=== PATIENT | male | born 1955 | race Caucasian/White ===

== ENCOUNTER 2022-01-09 03:55 | Outpatient (CLI) | payer MEDICARE, SELFPAY ==
[2022-01-09 09:22] LABS: HCT 45.8 % (40.0-50.0); HGB 15.3 g/dL (13.5-17.5); MCHC 33.4 % (32.0-36.0); MCV 90 fL (80-95); MPV 9.1 fL (8.0-11.0); Platelet Count 296 10^3/uL (130-400); RDW 11.9 % (11.8-14.1); RDW-SD 39.2 fL; WBC 4.53 10^3/uL (4.4-10.8)
[2022-01-09 10:12] LABS: ALT 32 U/L (16-63); AST 22 U/L (15-37); Alkaline Phosphatase 93 U/L (46-116); Anion Gap 7.7 mmol/L (3-11); BUN 13 mg/dL (7-18); Bilirubin, Total 0.7 mg/dL (0.2-1.0); CO2 29.3 mmol/L (21.0-32.0); Calcium 9.7 mg/dL (8.5-10.1); Calculated LDL 175 mg/dL (<100); Chloride 99 mmol/L (98-107); Cholesterol 255 mg/dL (<200); Estimated GFR 81.98 (mL/min/1.73m2); Glucose 99 mg/dL (74-106); HDL Cholesterol 60 mg/dL (40-60); Potassium 4.4 mmol/L (3.5-5.1); Sodium 136 mmol/L (136-145); Total Protein 8.6 g/dL (6.4-8.2); Triglyceride 100 mg/dL (<150)
[2022-01-09 19:45] LABS: PSA, Screening 13.7 ng/mL (<=4.5)
== END 2022-01-09 03:56 | disposition home or self-care (01) ==
LOC: LBO 03:56
PROVIDERS: PCP Nurse Practitioner; Visit Provider Nurse Practitioner
DX: M25.551 Pain in right hip (principal); E66.3 Overweight; R35.1 Nocturia; Z12.5 Encounter for screening for malignant neoplasm of prostate; Z80.42 Family history of malignant neoplasm of prostate; Z13.6 Encounter for screening for cardiovascular disorders; Z82.49 Family history of ischemic heart disease and other diseases of the circulatory system; Z83.3 Family history of diabetes mellitus
CPT/HCPCS: 36415; 80053; 80061; 84153; 85027

== ENCOUNTER → 2022-01-16 13:44 | Outpatient (BNVA) | payer MEDICARE, SELFPAY | PROVIDERS: PCP Nurse Practitioner; Referring Provider Nurse Practitioner; Visit Provider Urology | DX: R97.20 Elevated prostate specific antigen [PSA] (principal) | CPT/HCPCS: 99204 ==

== ENCOUNTER 2022-02-13 09:12 | Outpatient (CLI) | payer MEDICARE, SELFPAY ==
--- NOTE | 2022-02-13 09:00 | DI.RAD_ITS ---
Exam(s) XR HIP RT COMPLETE AP PELVIS EXAM: XR HIP RT COMPLETE AP PELVIS CLINICAL HISTORY: eval R hip for OA. TECHNIQUE: 2D digital imaging was performed. COMPARISON: No exams were available for comparison FINDINGS: Two views: No pelvic hip fractures but there is asymmetric severe advanced osteoarthritic degenerative change ri ght hip [id number] narrowing superior aspect and degenerative subarticular cysts and prominent oste ophytes. Opposite-left hip appears unremarkable. IMPRESSION: Severe advanced osteoarthritic change in the right hip. DATA REPOSITORY: RADIATION DOSE DELIVERED:
== END 2022-02-13 09:13 | disposition home or self-care (01) ==
LOC: DIORS 09:13
PROVIDERS: PCP Nurse Practitioner; Referring Provider Nurse Practitioner; Visit Provider Student in an Organized Health Care Education/Training Program
DX: M16.11 Unilateral primary osteoarthritis, right hip (principal)
CPT/HCPCS: 99214; 73502

== ENCOUNTER 2022-02-27 04:03 | Outpatient (CLI) | payer MEDICARE, SELFPAY ==
[2022-02-27 14:33] LABS: HCT 44.6 % (40.0-50.0); MCH 30.4 pg (27.0-33.0); MCHC 33.6 % (32.0-36.0); MCV 90 fL (80-95); MPV 9.4 fL (8.0-11.0); Platelet Count 319 10^3/uL (130-400); RBC 4.94 10^6/uL (4.36-5.78); RDW 11.9 % (11.8-14.1); RDW-SD 39.5 fL; WBC 4.87 10^3/uL (4.4-10.8)
[2022-02-27 15:15] LABS: Anion Gap 6.1 mmol/L (3-11); BUN 19 mg/dL (7-18); CO2 30.9 mmol/L (21.0-32.0); CREATININE 1.1 mg/dL (0.70-1.30); Calcium 9.5 mg/dL (8.5-10.1); Chloride 104 mmol/L (98-107); Estimated GFR 73.12 (mL/min/1.73m2); Glucose 83 mg/dL (74-106); Potassium 4.4 mmol/L (3.5-5.1); Sodium 141 mmol/L (136-145)
[2022-02-28 10:16] LABS: Hepatitis C Ab w Rflx HCV PCR Negative (Negative)
== END 2022-02-27 04:04 | disposition home or self-care (01) ==
LOC: LBO 04:03
PROVIDERS: PCP Nurse Practitioner; Visit Provider Student in an Organized Health Care Education/Training Program
DX: M25.551 Pain in right hip (principal); M16.11 Unilateral primary osteoarthritis, right hip; Z11.59 Encounter for screening for other viral diseases; Z01.818 Encounter for other preprocedural examination; Z01.812 Encounter for preprocedural laboratory examination
CPT/HCPCS: 36415; 80048; 85027; 86803

== ENCOUNTER 2022-03-05 05:43 | Day surgery (SDC) | payer MEDICARE, SELFPAY ==
[2022-03-05] VITALS (9 sets, daily range): BP systolic 109–170; BP diastolic 62–98; PULSE 56–74; RESP 12–16; TEMP 36–36.7; O2SAT 96–100; BMI 25.9
[2022-03-05] MEDS: Acetaminophen 500 MG TAB 1000 MG PO (06:53)
[2022-03-05] MEDS: Celecoxib 200 MG CAP 400 MG PO (06:54)
[2022-03-05] MEDS: Lactated Ringers 1,000 ML 80 ML IV (06:55)
--- NOTE | 2022-03-05 07:04 | W.ANESPRE ---
General Info Date of Service Date Performed: 03/05/22 Height: 6 ft 1 in Weight: 89.4 kg Body Mass Index (BMI): 25.9 Surgical Procedure: Operation Date: 03/05/22 07:50 Proposed Procedure Side Surgeon p Hip Total Hip Anterior ACTIS, STD 6 Right Trevor Mari MD Meds Allergies and Home Medications Allergies Allergy/AdvReac Type Severity Reaction Status Date / Time No Known Allergies Allergy Verified 03/05/22 05:55 Home Medication Medication Instructions Recorded lisinopril 10 mg tablet 10 mg PO DAILY #30 tabs 03/03/22 acetaminophen 500 mg tablet 1,000 mg PO Q8H PRN pain #90 tabs 03/05/22 aspirin 81 mg tablet,delayed 81 mg PO BID #60 tabs 03/05/22 release celecoxib 200 mg capsule 200 mg PO BID PRN pain #60 caps 03/05/22 dexamethasone 4 mg tablet 4 mg PO DAILY #2 tabs 03/05/22 docusate sodium 100 mg capsule 100 mg PO BID PRN #10 caps 03/05/22 (Colace) oxycodone 5 mg tablet 5 mg PO Q4H #12 tabs 03/05/22 pantoprazole 40 mg tablet,delayed 40 mg PO DAILY #30 tabs 03/05/22 release Current Visit Medications: Current Medications Generic Name Dose Route Start Last Admin Trade Name Julia PRN Reason Stop Dose Admin Acetaminophen 1,000 mg 03/05/22 06:00 03/05/22 06:53 Acetaminophen 500 Mg Tab PO 03/05/22 16:00 1,000 mg PREOP ERICA Administration Celecoxib 400 mg 03/05/22 06:00 03/05/22 06:54 Celecoxib 200 Mg Cap PO 03/05/22 16:00 400 mg PREOP ERICA Administration Tranexamic Acid 1,000 mg/ 60 mls @ 360 mls/hr 03/05/22 06:00 Sodium Chloride IV 03/05/22 16:00 PREOP ERICA Ringer's Solution 1,000 mls @ 80 mls/hr 03/05/22 06:00 03/05/22 06:55 IV 04/03/22 23:59 80 mls/hr INFUSION ERICA Administration IV Miscellaneous Supplies 1 each 03/05/22 06:00 Iv Access IV 04/03/22 23:59 DIRECTED ERICA Sodium Chloride 0 ml 03/05/22 06:00 Normal Saline Flush 10 Ml Syr IV 04/03/22 23:59 PRN PRN Sodium Chloride 0 ml 03/05/22 06:00 Normal Saline 10 Ml Vial IJ 04/03/22 23:59 DIRECTED PRN Sterile Water 0 ml 03/05/22 06:00 Water,Injection,Sterile 10 Ml Vial IJ 04/03/22 23:59 DIRECTED PRN PFSH Active Problems Active Problems: Problem Status Onset Code History of basal cell cancer Z85.828 Elevated PSA R97.20 Osteoarthritis of right hip M16.11 Essential hypertension I10 Medical History Medical History (Updated 03/05/22 @ 05:55 by Jose Eckert) HTN (hypertension) Surgical History Surgical History History of tonsillectomy Tobacco Smoking/Tobacco Use Status: Never Second hand exposure: No Alcohol Alcohol Intake: current Alcohol intake frequency: a few times a month Alcohol type: beer and wine Substance Use Substance use: Never Substance use type: does not use Vital Signs and Lab Results Vital Signs Most Recent Vital Signs in EMR: Most Recent Vital Signs Temp Pulse Resp BP Pulse Ox 36.7 C 67 16 163/96 H 100 03/05/22 05:58 03/05/22 05:58 03/05/22 05:58 03/05/22 05:58 03/05/22 05:58 Lab Results Blood Type / Crossmatch: No Data to Display Complete Blood Count: White Blood Count 4.87 10^3/uL (4.4-10.8) 02/27/22 14:24 Red Blood Count 4.94 10^6/uL (4.36-5.78) 02/27/22 14:24 Hemoglobin 15.0 g/dL (13.5-17.5) 02/27/22 14:24 Hematocrit 44.6 % (40.0-50.0) 02/27/22 14:24 Platelet Count 319 10^3/uL (130-400) 02/27/22 14:24 Complete Metabolic Panel: Sodium 141 mmol/L (136-145) 02/27/22 14:24 Potassium 4.4 mmol/L (3.5-5.1) 02/27/22 14:24 Chloride 104 mmol/L (98-107) 02/27/22 14:24 Carbon Dioxide 30.9 mmol/L (21.0-32.0) 02/27/22 14:24 BUN 19 mg/dL (7-18) H 02/27/22 14:24 Creatinine 1.1 mg/dL (0.70-1.30) 02/27/22 14:24 Est GFR (CKD-EPI 2020) 73.12 (mL/min/1.73m2) 02/27/22 14:24 Calcium 9.5 mg/dL (8.5-10.1) 02/27/22 14:24 Glucose 83 mg/dL (74-106) 02/27/22 14:24 Liver Function Panel: No Data to Display Coagulation Panel: No Data to Display Cardiac Panel: No Data to Display Arterial Blood Gas: No Data to Display Venous Blood Gas: No Data to Display Pancreas Panel: No Data to Display Thyroid Panel: No Data to Display Infectious Disease: Hepatitis C Antibody Negative (Negative) 02/27/22 14:24 Blood Cultures: No Data to Display Toxicology Panel: No Data to Display Anesthesia Assessment and Plan Anesthesia History Personal History: No History of Anesthesia Complications Family History: No Family History of Anesthesia Complications Exercise Tolerance Exercise Tolerance: Metabolic Equivalents>4 Pertinent Negatives Pertinent Negatives: No Symptoms of GERD, No Major Cardiovascular Symptoms or Complaints, No Major Pulmonary Symptoms or Complaints and No History of CVA/TIA Cardiac & Pulmonary Exam Cardiac Exam: Normal S1/S2 Heart Sounds Pulmonary Exam: Clear Bilateral Breath Sounds Implantable Cardiac Device Does patient have a Pacemaker or an ICD?: No Airway Exam Known Difficult Airway: No Mallampati Class: 1 Mouth Opening: Normal (> 3cm) Thyromental Distance: Greater than 3 cm Neck Range of Motion: Full ROM Neck Circumference: Normal Teeth Condition: Normal Dentition ASA Classification ASA Score: ASA 2 Emergency Case?: No NPO Status NPO Status: NPO Clears >2 hours, Solids >8 hours Anesthesia Plan Resuscitation Status: Full Code Anesthesia Technique: Spinal Anesthesia Airway Planned: Natural Airway Monitors Used: Standard Monitors
--- NOTE | 2022-03-05 07:07 | W.PM.DS.N ---
Date of service: 03/05/22 Time of Service: 10:39 DS: Diagnosis Discharge Diagnosis (1) Osteoarthritis of right hip: Status: Acute Discharge Plan Disposition Patient Disposition: Home Condition: Good Discharge Details Reason For Visit: Right Hip Arthritis Attending Provider: Trevor Mari Primary Care Provider: Georgette Mercedes Home Meds and New Rx's Prescriptions: New celecoxib 200 mg capsule 200 mg PO BID PRN (Reason: pain) Qty: 60 1RF aspirin 81 mg tablet,delayed release (DR/EC) 81 mg PO BID Qty: 60 0RF acetaminophen 500 mg tablet 1,000 mg PO Q8H PRN (Reason: pain) Qty: 90 3RF pantoprazole 40 mg tablet,delayed release (DR/EC) 40 mg PO DAILY Qty: 30 0RF dexamethasone 4 mg tablet 4 mg PO DAILY Qty: 2 0RF Rx Instructions: Starting Post-Operative Day #1 (Day after surgery) docusate sodium [Colace] 100 mg capsule 100 mg PO BID PRNQty: 10 0RF oxycodone 5 mg tablet 5 mg PO Q4H Qty: 12 0RF Continued lisinopril 10 mg tablet 10 mg PO DAILY Qty: 30 3RF Discharge Instructions Additional Instructions: Total Hip Discharge Instructions Activity: The most important activity is to walk. You should try to take short walks a few times a day. You have no restrictions on movement or positioning, but do not try to force what you do. You will find some stiffness and weakness with hip flexion (lifting your knee). Do not try to strengthen this too early, continue to practice walking and stairs and this will come. - Outpatient physical therapy can be helpful to help return you to a normal gait and improve your flexibility and strength. This can start around 2 weeks. For some patients, it?s not necessary. Usually this is determined at the time of discharge or at the first post-operative visit. - You should wear the JOHN hose on both legs for 2 weeks. Dressing: Keep the surgical dressing in place for at least one week. After the first week it may be removed and replace with light gauze and tape or nothing. It may get wet after 3 days but avoid soaking the dressing. If it gets wet, just lightly pat dry. It is important to always keep some gauze between skin folds, especially when you are sitting. Spend some time with the wound exposed when you are lying flat as the incision does wrinkle onto itself. Medications: - You should take Tylenol and an anti-inflammatory Celebrex as your primary pain control medications. If the Celebrex is too expensive or not covered, please call the office for another alternative (Advil/Ibuprofen or Naproxen/Aleve). - You have been prescribed a stronger pain medication Oxycodone for breakthrough pain, take as needed as prescribed. - You have also been prescribed a stomach acid reduction agent Pantoprozole to help reduce stomach acid and reflux. - You have also been prescribed Decadron to help with post-operative nausea and pain. You will take this for two days starting tomorrow. - You will be taking Aspirin 81mg twice a day for DVT prevention unless instructed otherwise. - If you have constipation you should take Colace or Miralax (both [id number]). It takes most people 3-4 days to have a bowel movement. Follow-up: 2 weeks March 20, 2022 at 11:30 am. If you have any acute concerns or questions, please do not hesitate to contact the office at [phone]. You may contact Dr. Mari with any questions after hours through the hospital at [phone] or on his cell phone at [phone]. Stand Alone Forms: Anesthesia Discharge InstJhony, Olvin Wharton ([facility]) Referrals: Trevor Mari MD [ [facility]FF [facility]YSICIAN] - Equipment/Supplies: Walker Activity:: Activity as Tolerated Remove Dressings/Wound Care:: Do Not Remove Shower/Bathe:: Cover Diet:: As Tolerated Discharge Orders Discharge Orders: Discharge Order (Routine); Ordered 03/05/22 Ordered By: Trevor Mari DS: Summary Time Spent with Patient providing and/or coordinating discharge services: Less than 30 minutes Status at Discharge Functional status at discharge: uses cane/walker Overall status at discharge: patient is progressing back to baseline Mental Status: mental status grossly normal Speech and Movement: speech and movement normal Mood: congruent mood Affect: normal affect Exam Psych Mental Status: mental status grossly normal Speech and Movement: speech and movement normal Mood: congruent mood Affect: normal affect DS: Data Vitals/I&O Vitals and I&O: Vital Signs Temperature 36.7 C 03/05/22 05:58 Pulse 67 03/05/22 05:58 Pulse Rhythm Regular 03/05/22 05:58 Respiratory Rate 16 03/05/22 05:58 Respiratory Depth Normal 03/05/22 05:58 Blood Pressure 163/96 H 03/05/22 05:58 Pulse Oximetry 100 03/05/22 05:58 Oxygen Delivery Method Room Air 03/05/22 05:58 Oxygen Flow Rate 0 03/05/22 05:58 Pain Level 0 03/05/22 05:58 Intake & Output 03/04/22 03/04/22 03/05/22 11:59 23:59 11:59 Weight 89.4 kg PFSH All Active Problems History of basal cell cancer (Acute) Elevated PSA (Acute) Osteoarthritis of right hip (Acute) Essential hypertension (Acute) Medical History HTN (hypertension) Surgical History History of tonsillectomy Social History Smoking/Tobacco Use Status: Never Second Hand Exposure: No Smoking risk assessment performed?: Yes Alcohol Intake: current Alcohol Intake frequency: a few times a month Alcohol type: beer and wine Drug use: Never Substance use type: does not use Adopted: No Caregiver/Support person: No Foster care: No Housing: house Number of Children: 0 number of grandchildren: 0 Communication Needs: None and Corrective Lenses Education Level: vocational Do you need help understanding health information?: Rarely 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, 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 - [employer] Pets and animals: No Sexually active: No Do you think of yourself as: straight/heterosexual Current gender identity: male What is your relationship status?: How often do you talk on the phone with friends or family?: once per week How often do you get together with friends or relatives?: once per week Do you belong to any clubs or organized social groups?: no Panel score (0-1 are the most socially isolated patients): 0 What type of physical activity do you participate in: none and other Duration: 45-60 minutes/day Frequency: daily Arielle/Cheondoism: Yarsanism Special arielle needs: No Seatbelt use: always Helmet use: Yes Helmet use: always Drive intox or ride w/intox 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
[2022-03-05] MEDS: ceFAZolin 2 GM/50 ML BAG IVPB (07:28)
--- NOTE | 2022-03-05 08:45 | DI.RAD_ITS ---
Exam(s) XR HIP RT IN OR EXAM: XR HIP RT IN OR CLINICAL HISTORY: OSTEOARTHRITIS RIGHT HIP. TECHNIQUE: 2D and realtime digital imaging was performed. COMPARISON: No exams were available for comparison FINDINGS: Hard copy images show placement of a right hip prosthesis. The alignment appears satisfactory. Please see procedure note for details. Fluoro time: 36.2seconds RADIATION DOSE DELIVERED: Ka,r=3.87 mGy
--- NOTE | 2022-03-05 08:53 | ROE_ITS ---
Date of service: 03/05/22 Time of Service: 08:53 Operative Note Operative Note DATE OF PROCEDURE: 03/05/22 PRE-OP DIAGNOSIS: Right Hip Osteoarthritis POST-OP DIAGNOSIS: same PROCEDURE: Right Anterior Total Hip Arthroplasty with Intraoperative Navigation SURGEON: Trevor Mari DELI DEPARTMENT MANAGER: Vikram Rogers ANESTHESIA TYPE: Spinal Refer to Anesthesia Record ESTIMATED BLOOD LOSS: 200 PATHOLOGY: none sent TOURNIQUET TIME: 0 COMPLICATIONS: None Patient was transported to: PACU Patient's condition: stable Implants: 1. Depuy [place] Acetabular Component, 56mm 2. Depuy Acetabular Liner, [id number] 3. Depuy Actis Standard Collared Femoral Stem, Size 9 4. Depuy Altrx Ceramic Femoral Head, Size 36+1.5mm Indications: I have seen Satnam in clinic for symptoms of hip arthritis, confirmed with radiographic findings. He has exhausted nonoperative methods and was having significant limitations in daily function and desired better function and less pain. I discussed the technical details of a hip replacement. I explained the risks of the procedure to include, but not limited to, bleeding, infection, pain, stiffness, fracture, damage to nerves and vessels, damage to muscles and tendons, loosening, instability, leg length inequality, need for repeat pro cedure, blood clot and cardiopulmonary demise. Despite these risks, Satnam elected to proceed. Findings: There was significant signs of arthritis throughout the hip. There was notable deformity of the femoral head and a dense floor osteophyte along with peripheral acetabular osteophytes. Procedure Description: Satnam was greeted in the preoperative holding area where the correct side was identified and marked. The consent was reviewed with the patient and signed. The history and physical was updated. All questions were answered. He was taken back to the operating room. A spinal anesthestic was then administered. The feet were wrapped with cast padding and Coban and then placed into the boot liners and then into the boots. Care was taken to protect the skin and make sure the heels were fully down and the boots were stable. The patient was then positioned onto the HANA table. Both legs were held in a neutral position. SCDs were applied. The patient was then slid down onto a peroneal post. Prophylactic antibiotics in the form of Cefazolin were administered. 1g of Tranxemic Acid was given intravenously within 30 minutes of incision. The right leg was then prepped with Chloraprep and draped in a standard fashion. A second prep with Chloraprep was performed prior to placem ent of a shower-curtain type drape with Iodine impregnated skin protection. A timeout to confirm correct identity, side and site, procedure, allergies, anesthesia, and medical concerns was performed. An obliquely oriented incision was made starting lateral to the ASIS and running distal over the Tensor Fascia Cindy (TFL) muscle belly toward the fibular head, approximately 10cm. The skin and soft tissue was dissected sharply, through Fe?s fascia, and to the fascia of the TFL. With the fascia and superior border of the IT band identified, the fascia was incised with a new knife just above any perforators from the IT band. The TFL muscle belly was bluntly dissected away from the fascia and moved laterally. The fat between TFL and rectus was identified to ensure the dissection was not within the TFL. Blunt dissection created space between abductors and the capsule and retractor was placed over the lateral femoral neck. The fibers of the rectus femoris tendon were identified and these were freed from the anterior capsule. A second cobra retractor was placed around the medial femoral neck. The TFL was further retracted laterally to show the deep fascia. Careful dissection through this layer identified three main crossing vessels of the lateral femoral circumflex. These were cauterized in multiple locations and then cut without any noticeable bleeding. The TFL was further released bluntly from the deep fascia to expose anterior hip capsule and fat The Eddie orthopaedic retractor was then placed beneath the TFL and against sartorius and medial soft tissues to protect and retract the soft tissues. A T-capsulotomy was then performed starting at the superior lateral acetabulum and moving distally to the intertrochanteric ridge. These capsular flaps were tagged with a No. 1 Ethibond and elevated from within. The capsular flaps were released to the shoulder of the lateral neck and to the lesser trochanter to give excellent visualization of the proximal femur. A neck osteotomy was performed using an oscillating saw based on preoperative templates. This cut started in the shoulder and of the lateral neck and exited medially. The saw was at all times directed medially to avoid injury to the greater trochanter. Gross traction was applied to the leg and the osteotomy opened. The femoral head was removed with a corkscrew, making sure to protect the TFL on its exit. Traction was released after head removal. This was measured on the back table to determine the starting reamer size. Portions of the rectus obscuring visualization were minimally elevated off the superior acetabulum. An anterior retractor was placed over the anterior wall between capsule and labrum and attached to the Gripper retraction system. The femur was rotated to 90 degrees and medial capsule was fully released until the lesser trochanter was palpable and visible; the femur was returned to 30 degrees. A posterior retractor was placed similarly between capsule and labrum. This provided excellent visualization. The contents of the cotyloid fossa were removed with electrocautery and the labrum was removed with a knife. There was a notable floor osteophyte. There was significant chondromalacia of the superior acetabulum. Acetabular reaming began with a 52mm reamer. This first reaming was directed anterior to posterior and medial to get down to the true floor. This was inspected and reamed until the true floor was reached. The anterior retractor was then released and entry and exit was provided by traction on the capsular flaps. I then reamed sequentially up to a 56mm reamer where good fit was obtained. The larger reamers were oriented based on anatomical reference of the anterior and lateral brown to ensure proper abduction and anteversion. Positioning and size was confirmed with the fluoroscopy. A 56mm Depuy [place] acetabular component was selected. The acetabulum was reamed around the periphery with the selected acetabular size to prevent a rim fit. The deep tissues were irrigated. The acetabular component was then impacted in a position of about 40-45 degrees of abduction and 15-20 degrees of anteversion, using the patient?s anatomy as the ultimate landmark. Fluoroscopy was used to confirm this. There was excellent bunghole borer of the acetabular component and the inserting handle was removed. The acetabular liner, Depuy [id number] polyethylene liner, was inserted and lined up with the tines of the acetabular component. There was no soft tissue interposition. The liner was then impacted into position and confirmed to be well-seated. A portion of the nimesh-articular cocktail was then injected around the acetabulum into the capsule and periosteum. This cocktail consisted of 123mg of Ropivacaine, 0.25mg of Epinephrine, 0.04mg of Clonidine, and 15mg of Ketorolac, diluted to 50cc. The leg was rotated to 120 degrees. Any remaining medial capsule was released until the lesser trochanter was easily palpable. A retractor was placed medially. The lateral capsule was further released into the shoulder to allow access to the greater trochanter. A Jama retractor was placed over the greater trochanter which allowed the trochanter to flip in front of the capsule for excellent exposure. The leg was brought down into maximal extension and 20 degrees of adduction while ensuring there was no impingement on the acetabulum. Any remnant capsule within the trochanter was released. Piriformis and obturator externis were identified and protected. There was excellent access to the proximal femur. The lateral neck remnant was removed with a rongeur. A blunt canal probe was used to identify the canal and trajectory for later broaching. A box osteotome initiated the broach course. A small curved rasp and a curved curette were used to work laterally. Broaching then began with a starter Actisl broach. This was inserted manually around the trochanter and into the canal before mallet blows. The broach was seated to a few millimeters below the cut level based on the neck cut and the preoperative template. Sequential broaching was continued with the [place] pneumatic broaching device until a tight fit was obtained with good rotational control of the femur. A trial standard neck was inserted along with a +5 trial head. The leg was brought out of extension and adduction and then reduced with tract ion and internal rotation. The leg was stable anteriorly in a position of 30 degrees of extension and 90 degrees of external rotation. Fluoroscopy was used to ensure there was no fracture and the stem was seated well. Leg lengths were checked with an AP pelvis and pelvic reference points. [place] navigation system was used to confirm appropriate positioning and leg length and offset. Witha goal of lengthening him 4-6mm, the current construct correctly recreated the offset but undersized the leg length by about 4mm. Thus I rebroached the femur, going up in size and leaving the implant slightly proud. The hip was reduced and reanalyzed with the computer navigation system, [employer]. Once content with the desired offset and leg lengths, the leg was brought back into extension, external rotation and adduction. The periosteum and surrounding tissue was injected with remaining portion of the nimesh-articular cocktail. The proximal femur was irrigated as well as the deep tissues. The [employer] Cloudis standard collared stem, size 9, was then manually inserted into the proximal femur making sure to control rotation. It was then malleted into position with light blows, giving breaks to allow bone expansion and decrease risk of fracture. The selected Depuy Altrx Ceramic Head, size 36+1.5mm, was then placed onto the clean and dry trunnion and secured with impaction onto the tapered fit. The leg was brought back out of extension and adduction and reduced with traction and internal rotation. Stability was confirmed with no shuck at 90 degrees of external rotation and 30 degrees of extension. No impingement through range of motion arc. Final x-ray images were obtained with fluoroscopy to confirm adequate positioning and no intraoperative fracture. The deep tissues were thoroughly irrigated with Surgiphor, betadine solution. This was allowed to sit in the wound for 3 minutes before being thoroughly irrigated out with normal saline. The capsule was then reapproximated with the previously placed Ethibond sutures. The TFL fascia was finally closed with a No. 2 Stratafix, barbed suture. Deep tissues were then reapproximated with 0 Vicryl and a running 2-0 Vicryl. The skin was closed with a running 4-0 Monocryl in a subcuticular fashion. This was reinforced with skin glue. A Mepilex silver dressing was applied. At the end of the case, all counts were correct. Satnam was transferred to the hospital bed without difficulty and suffering no apparent complication. Satnam has a good prognosis. Physical therapy will start today and without restrictions, weight-bearing as tolerated. Aspirin 81mg BID will be used for DVT prophylaxis.
--- NOTE | 2022-03-05 10:25 | PT.INIE ---
Date of service: 03/05/22 Time of Service: 10:25 PT Notes Visit Reasons: Right Hip Arthritis Physical Therapy Day Surgery Initial Evaluation Date: 03/05/2022 Referring Doctor: Trevor Mari MD PT Orders: PT CONSULT: S/P Ortho Surgery. S/P R MARCELO Precautions: WBAT on the R LE with AD. Patient Profile/Admitting Diagnosis: Satnam is a 66-year-old male with degenerative joint disease of the right hip and is status post right anterior total hip arthroplasty on postoperative day 0. PMHX: Unremarkable Social History/Home Situation: Lives alone in a private home with 6-8 steps to enter with rails on both sides. Bedroom is on the second floor but patient states that he is able to manage on the main floor of the house as needed. Equipment Owned/DME: None Subjective: States that he feels much much better after surgery than he did in the past several months. He is amazed at how much painless it is to lie flat in bed, he used to have groin pain when flat in bed. Denies headache and chest pain but did report mild lightheadedness that did not limit today's assessment. Objective: General Observation: Supine in bed. Mepilex Ag over surgical incision. TEDS in both legs. Mental Status: 4 Pain: 1/10 in the right hip at rest and with movement. ROM Right Lower Extremity: Hip flexion WFL. Hip abduction WFL. Knee flexion WFL. Ankle dorsiflexion WFL. Ankle plantarflexion WFL. Left Lower Extremity: Hip flexion WFL. Hip abduction WFL. Knee flexion WFL. Ankle dorsiflexion WFL. Ankle plantarflexion WFL. Strength: Right Lower Extremity: Hip flexors 4/5. Hip abductors 4/5. Knee flexors 5/5. Knee extensors 4/5. Ankle dorsiflexors 5/5. Ankle plantarflexors 5/5. Left Lower Extremity:Hip flexors 5/5. Hip abductors 5/5. Knee flexors 5/5. Knee extensors 5/5. Ankle dorsiflexors 5/5. Ankle plantarflexors 5/5. Sensation: Intact as to pain and light pressure in B lower extremities Bed Mobility/Transfers: Supine to sit standby assist Sit to stand standby assist Stand to sit standby assist Bed to chair standby assist Gait: Instructed on level surface ambulation of 150 feet using front wheeled walker with step through gait pattern requiring standby assist only. Stairs: Down 6 x 4 inch steps and 4 x 6 inch steps while holding onto bilateral rails with step to gait pattern requiring standby assist only. Balance: Static Sitting: Normal Dynamic Sitting: Normal Static Standing: Fair Dynamic Standin: Fair Special Tests: Mobility Limitations Standardized Measure [facility] AM-PAC 6 clicks Basic Mobility Inpatient Short Form: Raw Score: 24 CMS Score: 0% deficit Informed Consent/Education: Patient instructed in purpose of PT consult. Packet containing MARCELO exercise protocol has been given to patient. Education and training on initial set of exercises that can be done at home have been completed with patient. THERA EX: Combined glutes sets and quads sets x 5 in supine Supine heels slides x 5 Supine ankle Df/PF x 10 LAQ x 5 Assessment: Requires use of a front wheeled walker for all mobility ADL performance to maximize independence and reduce fall risk. Patient presents with clinical signs and symptoms consistent with current/admitting diagnoses that have resulted to mobility limitations, gait instability, generalized weakness, and impairment of motor control as demonstrated by the following impairment level findings: 1. Decreased strength to R hip major muscle groups 2. Impaired standing balance Impairments are contributing to the following functional limitations: 1. Inability to safely ambulate without assistive device 2. Increase completion time for mobility ADL performance 3. Increased fall risk Patient is assessed as a 78822 moderate complexity based on the following: History: 66-year-old male with impairment level findings, functional limitations, and past medical history as indicated above Examination: Demonstrable impairment in strength, balance, and mobility level with underlying impairments and functional limitations as documented above Presentation: Evolving Decision Makin moderate complexity Goals: N/A. PT evaluation and 1-2 treatment sessions only for functional mobility training using recommended AD and for HEP instruction. Plan of Care/Treatment Plan: N/A. PT evaluation and 1-2 treatment session only for functional mobility training using recommended AD and for HEP instruction. DISCHARGE RECOMMENDATIONS: Home when medically cleared by orthopedic surgeon. Recommend outpatient PT services in order to optimize functional mobility outcomes and facilitate return to independent community ambulation without an assistive device. TREATMENT CODE/TIME: 11472 x 20 minutes, 40846 x 17 minutes beginning at 10:25 AM. Thank you for the opportunity to participate in the care of this patient. Ying Perales PT, DPT, CLT [facility] [place], [place]
--- NOTE | 2022-03-05 11:46 | W.ANESPOSTOP ---
Postoperative Evaluation Date, Time and Location Date Performed: 03/05/22 Time Performed: 11:46 Patient Location: Day Surgery Unit Vital Signs Most Recent Imported Vital Signs: Most Recent Vital Signs Temp Pulse Resp BP Pulse Ox 36.4 C L 74 16 170/98 H 100 03/05/22 11:05 03/05/22 11:05 03/05/22 11:05 03/05/22 11:05 03/05/22 11:05 Pain Score Most Recent Pain Score: Most Recent Pain Score Pain Level 2 03/05/22 11:05 Assessment Mental Status: Awake (Alert & Oriented to Patient Baseline) Airway and Respiratory Function: Patent airway with normal (patient baseline) respiratory exam Cardiovascular Function: Hemodynamically Stable Hydration Status: Adequately Hydrated Nausea & Vomiting: No Nausea or Vomiting Pain: Pain is tolerable per patient Peripheral Nerve Block: Patient did not receive a nerve block
== END 2022-03-05 11:45 | disposition home or self-care (01) ==
PROVIDERS: PCP Nurse Practitioner; Visit Provider Student in an Organized Health Care Education/Training Program
PROC: (CPT 27130; principal; 2022-03-05 07:30)
DX: M16.11 Unilateral primary osteoarthritis, right hip (principal); I10 Essential (primary) hypertension
CPT/HCPCS: 20985; 27130; C1776; 97162; 97530; 73501; J0690; J1100; J2250; J2405

== ENCOUNTER 2022-03-20 11:45 | Outpatient (CLI) | payer MEDICARE, SELFPAY ==
--- NOTE | 2022-03-20 10:30 | DI.RAD_ITS ---
Exam(s) XR HIP RT COMPLETE AP PELVIS EXAM: XR HIP RT COMPLETE AP PELVIS CLINICAL HISTORY: 1st post op R MARCELO. TECHNIQUE: 2D digital imaging was performed. COMPARISON: CR XR HIP RT COMPLETE AP PELVIS from 02/13/2022 FINDINGS: Two views: Satisfactory position alignment the components of the right hip prosthesis. No fracture or loosening evident. IMPRESSION: Satisfactory appearance. DATA REPOSITORY: RADIATION DOSE DELIVERED:
== END 2022-03-20 11:46 | disposition home or self-care (01) ==
LOC: DIORS 11:46
PROVIDERS: PCP Nurse Practitioner; Referring Provider Nurse Practitioner; Visit Provider Physician Assistant
DX: Z96.641 Presence of right artificial hip joint (principal); Z47.1 Aftercare following joint replacement surgery
CPT/HCPCS: 73502

== ENCOUNTER → 2022-04-21 12:36 | Outpatient (BNVA) | payer MEDICARE, SELFPAY | PROVIDERS: PCP Nurse Practitioner; Referring Provider Nurse Practitioner; Visit Provider Student in an Organized Health Care Education/Training Program | DX: Z47.1 Aftercare following joint replacement surgery (principal); Z96.641 Presence of right artificial hip joint ==

== ENCOUNTER 2022-05-19 01:47 | Outpatient (CLI) | payer MEDICARE, SELFPAY ==
--- OUTSIDE RECORDS SUMMARY | 2022-05-19 01:52 | XMS_ITS ---
Author Name Misael Barker I Address [address] [place] [address] Organization [facility], Address [address] [place] [id number] Care Team Providers Care [employer] Legal Assistant Name Role Phone Misael Barker I Primary Care Physician Misael Barker I Preferred Provider [phone] Allergies and Adverse Reactions Name Reaction Notes NO KNOWN DRUG ALLERGIES - Phrees ia 07/23/2021 Problem List Description Status Onset Primary osteoarthritis of right hip Active 07/23/2021 Vital Signs Date Time BP-Sys(mm[Hg] BP-Radha(mm[Hg]) HR(bpm) RR(rpm) Temp WT HT HC BMI BSA BMI Percentile O2 Sat(%) 2021 2:24: 00 PM 220 lbs 74 in 28.2 46 kg/m 2 2.28 26 m2 Social History Name Description Comments Tobacco Never smoker - Phreesia 07/23- [employer]reesia 07/23/2021 - Phreesia 07/23 History of Procedures Date Ordered Description Order Status 07/23/2021 12:00 AM X-ray Hip 2-3 views Right (un ilateral/pelvis) Reviewed 07/23/2021 12:00 AM TOTAL HIP ARTHROPLASTY Review ed 07/23/2021 12:00 AM CPTR-ASST DIR MS PX Reviewed 07/23/2021 12:00 AM AUTH Surgery Reviewed Results Summary Date and Description Results 07/23/2021 2:24 PM Weight For Length Pe rcentile 0.1 {percentile}Body Mass Index Percentile for Age and Sex 0.1 {percentile} History of Past Illness Name Date of Onset Comments none - [employer]reesia 07/23 Primary osteoarthritis of right hip 07/23/2021 Pain in right hip Jul 23 2021 11:42AM Primary osteoarthritis of right hip Jul 23 2021 11:46AM Primary osteoarthritis of right hip Jul 23 2021 12:16PM Payers Insurance Name Company Name Plan Name Plan Number Policy Number Policy Group Number Start Date Medicare Part B Medicare Part B [id number] N/A History of Encounters Visit Date Visit Type Provider 07/23/2021 Office Visits 07/23/2021 Office Visits 07/23/2021 Office Visits Jordy barajas MD
[2022-05-19 11:06] LABS: Albumin 3.7 g/dL (3.4-5.0); Calculated LDL 150 mg/dL (<100); Cholesterol 223 mg/dL (<200); HDL Cholesterol 53 mg/dL (40-60); Total Protein 7.7 g/dL (6.4-8.2); Triglyceride 102 mg/dL (<150)
[2022-05-19 18:07] LABS: PSA, Diagnostic 11.9 ng/mL (<=4.5)
== END 2022-05-19 01:48 | disposition home or self-care (01) ==
LOC: LBO 01:47
PROVIDERS: Urology; PCP Nurse Practitioner; Visit Provider Nurse Practitioner
DX: R97.20 Elevated prostate specific antigen [PSA] (principal); E78.5 Hyperlipidemia, unspecified; R77.8 Other specified abnormalities of plasma proteins
CPT/HCPCS: 36415; 80061; 82040; 84153; 84155

== ENCOUNTER → 2022-06-03 14:07 | Outpatient (BNVA) | payer MEDICARE, SELFPAY | PROVIDERS: PCP Nurse Practitioner; Referring Provider Nurse Practitioner; Visit Provider Urology | DX: R97.20 Elevated prostate specific antigen [PSA] (principal) | CPT/HCPCS: 99213 ==

== ENCOUNTER → 2022-10-09 15:13 | Outpatient (BNVA) | payer MEDICARE, SELFPAY | PROVIDERS: PCP Nurse Practitioner; Referring Provider Nurse Practitioner; Visit Provider Physical Therapy Assistant | DX: Z12.11 Encounter for screening for malignant neoplasm of colon (principal) ==

== ENCOUNTER 2022-10-30 06:06 | Day surgery (SDC) | payer MEDICARE, SELFPAY ==
--- NOTE | 2022-10-29 19:06 | W.PM.DSUDISC ---
Date of service: 10/30/22 Time of Service: 08:00 Discharge Plan Disposition Patient Disposition: Home Condition: Good Discharge Details Reason For Visit: Screening colonoscopy Attending Provider: Kushal Gracia Primary Care Provider: Georgette Mercedes Home Meds and New Rx's Prescriptions: Continued lisinopril 40 mg tablet 40 mg PO DAILY Qty: 90 3RF Discontinued bisacodyl [Dulcolax (bisacodyl)] 5 mg tablet,delayed release (DR/EC) 5 mg PO ONCE Qty: 4 0RF Rx Instructions: Take per colonoscopy instructions provided by ordering providers office polyethylene glycol 3350 17 gram/dose powder 17 g PO ONCE Qty: 238 0RF Rx Instructions: Take per colonoscopy instructions provided by ordering providers office Discharge Instructions Instructions: Diverticulosis Diet (GEN), Colorectal Polyps (IP), Diverticulosis (GEN) Additional Instructions: Satnam, we were able to complete your colonoscopy today without any difficulty. Your prep was excellent. I did find 1 polyp. It was small. I removed it completely. I will be in touch when I have the results of the pathology report for my recommendations regarding your next colonoscopy. Incidentally, you also have some diverticulosis. These are small weak spots in the colon wall that typically accumulate with age. We will attach some general information here regarding how to take care of it. Basically, I recommend a well-balanced diet that is rich in fiber, and the avoidance of symptoms of constipation. 1. If tolerated, consume a soft, low fiber diet for 1-2 days. 2[address] Do not drive, drink alcohol, operate machinery, make critical decisions, or do activities that require coordination or balance for 24 hours. 3. Because air was put into your colon during the procedure, expelling air from your rectum (passing gas or farting) is normal. 4. You may not have a bowel movement for 1-3 days because of the colonoscopy prep. This is normal. 5. Go directly to the emergency room if you notice any of the following: Develop chills (warm to touch), or if you have a thermometer and your temperature is above 101 Difficulty breathing or difficultly swallowing Persistent vomiting Severe abdominal pain, other than gas cramps Severe chest pain Black, tarry stools Any bleeding ? exceeding one tablespoon 6. Call your physician if the site where your intravenous was started becomes red, swollen, painful, and warm to touch. 7. Your physician has reviewed your pre-procedure medications. Please continue to take those medications as previously ordered. You will be given specific information/education regarding any changes to your medications before leaving. Stand Alone Forms: Anesthesia Discharge InstOlvin Booker (DSU) Activity:: Activity as Tolerated Diet:: As Tolerated Discharge Orders Discharge Orders: Discharge Order (Routine); Ordered 10/29/22 Ordered By: Kushal Gracia DS: Diagnosis Discharge Diagnosis (1) Screen for colon cancer: Status: Acute Asessment and Plan: I will follow-up on polypectomy results
--- NOTE | 2022-10-29 19:07 | COLE_ITS ---
Date of service: 10/30/22 Time of Service: 08:02 Colonoscopy Report Date of procedure: 10/30/22 Pre-op diagnosis general: Screening colonoscopy Post-op diagnosis procedure note: other (Diverticulosis, Colon polyp) Procedure: Colonoscopy with polypectomy Surgeon: Kushal Gracia Anesthesia Type: General:No Airway Estimated blood loss (mL): 5 Pathology: other (0.25 cm colon polyp at 45 cm from the anus) Complications: None Disposition: same day Indications: Satnam is a 66 year old man who needs another screening colonoscopy Prep: Miralax/Dulcolax Procedure Start Time: 07:30 Procedure End Time: 07:46 Retraction Time: 9 Findings: Sigmoid diverticulosis, 0.25 cm colon polyp at 45 cm from the anus Procedure Description: After the induction of monitored anesthetic care, and with the patient in left lateral decubitus position, I began by performing an external anorectal exam.? Perineum and skin were normal, as was the anal verge.? There was some mild external hemorrhoids.? Next, I performed a digital rectal exam.? This was n ormal.? Next, I advanced a colonoscope into the rectal vault.? I performed retroflexion.? This is normal.? Using insufflation, I then advanced the colonoscope beyond the rectal folds and into the sigmoid colon before advancing towards the cecum.? The quality of the prep was excellent.? The scope was noted to be in the cecum by identification of the ileocecal valve and appendiceal orifice.? I then began withdrawing the colonoscope using repeated irrigation as necessary for full evaluation of the colonic mucosa. Around 45 cm from the anal verge I identified a 0.25 cm polyp. ?It appeared sessile in character. ?I was able to remove this with a cold snare polypectomy. ?I examined the site, and there was minimal bleeding. ?Once this was completed, I continued to withdraw the scope and examine the remainder of the colonic mucosa.?Once the scope was withdrawn to the level of the rectum, great care was taken to examine portions of the rectal folds.? Finally, the scope was withdrawn and the patient was brought to the same-day surgery recovery unit as the anesthetic wore off. ?The findings and instructions were shared with the patient prior to discharge.
[2022-10-30 06:16] VITALS: BP 169/89; PULSE 71; RESP 16; TEMP 37.1; O2SAT 97
[2022-10-30] MEDS: Lactated Ringers 1,000 ML 80 ML IV (06:49)
--- NOTE | 2022-10-30 07:07 | W.ANESPRE ---
General Info Date of Service Date Performed: 10/30/22 Height: 6 ft 1 in Weight: 92.7 kg Body Mass Index (BMI): 26.9 Surgical Procedure: Operation Date: 10/30/22 07:35 Proposed Procedure Side Surgeon sapna Gracia MD Meds Allergies and Home Medications Allergies Allergy/AdvReac Type Severity Reaction Status Date / Time No Known Allergies Allergy Verified 10/30/22 06:15 Home Medication Medication Instructions Recorded lisinopril 40 mg tablet 40 mg PO DAILY #90 tabs 10/20/22 Current Visit Medications: Current Medications Generic Name Dose Route Start Last Admin Trade Name Freq PRN Reason Stop Dose Admin Hyoscyamine Sulfate 0.125 mg 10/29/22 19:08 Hyoscyamine 0.125 Mg Sl/Oral/Chew SL 11/28/22 19:07 DIRECTED PRN Ringer's Solution 1,000 mls @ 80 mls/hr 10/30/22 06:00 10/30/22 06:49 IV 11/28/22 23:59 80 mls/hr INFUSION ERICA Administration IV Miscellaneous Supplies 1 each 10/30/22 06:00 Iv Access IV 11/28/22 23:59 DIRECTED ERICA Ondansetron HCl 4 mg 10/29/22 19:08 Ondansetron 4 Mg/2 Ml Vial IVP 11/28/22 19:07 Q4H PRN PRN Nausea / Vomiting Sodium Chloride 0 ml 10/30/22 06:00 Normal Saline Flush 10 Ml Syr IV 11/28/22 23:59 PRN PRN Sodium Chloride 0 ml 10/30/22 06:00 Normal Saline 10 Ml Vial IJ 11/28/22 23:59 DIRECTED PRN Sterile Water 0 ml 10/30/22 06:00 Water,Injection,Sterile 10 Ml Vial IJ 11/28/22 23:59 DIRECTED PRN PFSH Active Problems Active Problems: Problem Status Onset Code Screen for colon cancer Z12.11 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 taking taxi home-pt. states his sister in [place] will call him post- op to check on him Surgical History Surgical History History of tonsillectomy Tobacco Smoking/Tobacco Use Status: Never Second hand exposure: No Alcohol Alcohol Intake: current Alcohol intake frequency: a few times a month Alcohol type: beer and wine Substance Use Substance use: Never Substance use type: does not use Vital Signs and Lab Results Vital Signs Most Recent Vital Signs in EMR: Most Recent Vital Signs Temp Pulse Resp BP Pulse Ox 37.1 C 71 16 169/89 H 97 10/30/22 06:16 10/30/22 06:16 10/30/22 06:16 10/30/22 06:16 10/30/22 06:16 Lab Results Blood Type / Crossmatch: No Data to Display Complete Blood Count: No Data to Display Complete Metabolic Panel: No Data to Display Liver Function Panel: No Data to Display Coagulation Panel: No Data to Display Cardiac Panel: No Data to Display Arterial Blood Gas: No Data to Display Venous Blood Gas: No Data to Display Pancreas Panel: No Data to Display Thyroid Panel: No Data to Display Infectious Disease: No Data to Display Blood Cultures: No Data to Display Toxicology Panel: No Data to Display Anesthesia Assessment and Plan Anesthesia History Personal History: No History of Anesthesia Complications Family History: No Family History of Anesthesia Complications Exercise Tolerance Exercise Tolerance: Metabolic Equivalents>4 Pertinent Negatives Pertinent Negatives: No Symptoms of GERD Cardiac & Pulmonary Exam Cardiac Exam: Normal S1/S2 Heart Sounds Pulmonary Exam: Clear Bilateral Breath Sounds Implantable Cardiac Device Does patient have a Pacemaker or an ICD?: No Airway Exam Known Difficult Airway: No Mallampati Class: 1 Mouth Opening: Normal (> 3cm) Thyromental Distance: Greater than 3 cm Neck Range of Motion: Full ROM Neck Circumference: Normal Teeth Condition: Normal Dentition ASA Classification ASA Score: ASA 2 Emergency Case?: No NPO Status NPO Status: NPO Clears >2 hours, Solids >8 hours Anesthesia Plan Resuscitation Status: Full Code Anesthesia Technique: General Anesthesia Airway Planned: Natural Airway Monitors Used: Standard Monitors
[2022-10-30 07:10] VITALS: BMI 26.9
--- NOTE | 2022-10-30 07:36 | BOWEL_PTH ---
PATIENT: Usman Carver LOC: [facility] U#:[id number] AGE/SX: 66/M ROOM: RE10/30/[address]: Kushal Gracia MD : [id number] BED: DIS: 10/30/2022 SPEC #: [id number] RECD: 10/30/22 12:27 STATUS: PAOLO RE #: [id number] LUCERO: 10/30/22 07:[address]: Kushal Gracia DEPT: Surgical Specimen RECD BY: Giuliana Montgomery ENTERED: 10/30/22 12:27 SP TYPE: Bowel OTHR DR: Georgette Mercedes APRN Tissues: 1 - BIOPSY BOWEL Procedures: GROSS AND MICRO LEVEL 4 Comments: [id number]
[2022-10-30 07:53] VITALS: BP 113/68; PULSE 60; RESP 14; TEMP 36.3; O2SAT 96
[2022-10-30 08:29] VITALS: BP 165/94; PULSE 64; RESP 18; TEMP 36.6; O2SAT 98
[2022-10-30 09:18] VITALS: BP 173/95; PULSE 72; RESP 18; TEMP 37; O2SAT 97
--- NOTE | 2022-10-30 09:48 | W.ANESPOSTOP ---
Postoperative Evaluation Date, Time and Location Date Performed: 10/30/22 Time Performed: 09:48 Patient Location: Day Surgery Unit Vital Signs Most Recent Imported Vital Signs: Most Recent Vital Signs Temp Pulse Resp BP Pulse Ox 37.0 C 72 18 173/95 H 97 10/30/22 09:18 10/30/22 09:18 10/30/22 09:18 10/30/22 09:18 10/30/22 09:18 Pain Score Most Recent Pain Score: Most Recent Pain Score Pain Level 0 10/30/22 09:18 Assessment Mental Status: Awake (Alert & Oriented to Patient Baseline) Airway and Respiratory Function: Patent airway with normal (patient baseline) respiratory exam Cardiovascular Function: Hemodynamically Stable Hydration Status: Adequately Hydrated Nausea & Vomiting: No Nausea or Vomiting Pain: Pt. Denies Any Pain Peripheral Nerve Block: Patient did not receive a nerve block Postoperative Comments:: Pt. awake, steady gait and appropriate.
== END 2022-10-30 10:18 | disposition home or self-care (01) ==
PROVIDERS: PCP Nurse Practitioner; Visit Provider Surgery
PROC: 0DJD8ZZ Inspection of Lower Intestinal Tract, Via Natural or Artificial Opening Endoscopic (ICD-10-PCS; CPT 45378; principal; 2022-10-30 07:30)
DX: Z12.11 Encounter for screening for malignant neoplasm of colon (principal); D12.5 Benign neoplasm of sigmoid colon; K57.30 Diverticulosis of large intestine without perforation or abscess without bleeding
CPT/HCPCS: 45385; 88305

== ENCOUNTER 2022-12-02 02:47 | Outpatient (CLI) | payer MEDICARE, SELFPAY ==
[2022-12-02 23:01] LABS: PSA, Diagnostic 18.8 ng/mL (<=4.5)
== END 2022-12-02 02:48 | disposition home or self-care (01) ==
LOC: LBO 02:47
PROVIDERS: PCP Nurse Practitioner; Visit Provider Urology
DX: R97.20 Elevated prostate specific antigen [PSA] (principal)
CPT/HCPCS: 36415; 84153

== ENCOUNTER → 2022-12-09 13:28 | Outpatient (BNVA) | payer MEDICARE, SELFPAY | PROVIDERS: PCP Nurse Practitioner; Visit Provider Urology | DX: R97.20 Elevated prostate specific antigen [PSA] (principal) | CPT/HCPCS: 99214 ==

== ENCOUNTER 2023-03-09 13:16 | Outpatient (CLI) | payer MEDICARE, SELFPAY ==
--- NOTE | 2023-03-09 13:00 | DI.RAD_ITS ---
Exam(s) XR HIP RT AP LAT ONLY EXAM: XR HIP RT AP LAT ONLY CLINICAL HISTORY: F/U RIGHT MARCELO. TECHNIQUE: 2D digital imaging was performed. Two images were obtained. AP and lateral views were ob tained. COMPARISON: CR XR HIP RT COMPLETE AP PELVIS from 03/20/2022 FINDINGS: BONES: There are stable post operative changes of a right total hip replacement present. No fracture or dislocation. JOINTS: The orthopedic hardware is in good position. No evidence of hardware loosening. SOFT TISSUE: Normal. IMPRESSION: Stable postoperative changes. DATA REPOSITORY: RADIATION DOSE DELIVERED:
== END 2023-03-09 13:17 | disposition home or self-care (01) ==
LOC: DIORS 13:17
PROVIDERS: PCP Nurse Practitioner; Visit Provider Student in an Organized Health Care Education/Training Program
DX: Z47.1 Aftercare following joint replacement surgery (principal); Z96.641 Presence of right artificial hip joint
CPT/HCPCS: 99213; 73502

== ENCOUNTER 2023-06-02 04:57 | Outpatient (CLI) | payer MEDICARE, SELFPAY ==
[2023-06-02 22:39] LABS: PSA, Diagnostic 28.3 ng/mL (<=4.5)
== END 2023-06-02 04:58 | disposition home or self-care (01) ==
LOC: LBO 04:57
PROVIDERS: PCP Nurse Practitioner; Visit Provider Urology
DX: R97.20 Elevated prostate specific antigen [PSA] (principal)
CPT/HCPCS: 36415; 84153

== ENCOUNTER → 2023-06-09 14:09 | Outpatient (BNVA) | payer MEDICARE, SELFPAY | PROVIDERS: PCP Nurse Practitioner; Referring Provider Nurse Practitioner; Visit Provider Urology | DX: N40.1 Benign prostatic hyperplasia with lower urinary tract symptoms (principal); R97.20 Elevated prostate specific antigen [PSA] | CPT/HCPCS: 99213 ==

== ENCOUNTER 2023-06-16 05:41 | Outpatient (CLI) | payer MEDICARE, SELFPAY ==
[2023-06-16 08:05] LABS: AST 22 U/L (15-37); Alkaline Phosphatase 92 U/L (46-116); Anion Gap 9.2 mmol/L (3-11); BUN 19 mg/dL (7-18); Bilirubin, Total 0.4 mg/dL (0.2-1.0); CO2 29.8 mmol/L (21.0-32.0); Calcium 9.4 mg/dL (8.5-10.1); Calculated LDL 134 mg/dL (<100); Chloride 107 mmol/L (98-107); Cholesterol 208 mg/dL (<200); Estimated GFR 81.47 (mL/min/1.73m2); Glucose 109 mg/dL (74-106); HDL Cholesterol 55 mg/dL (40-60); Potassium 4.5 mmol/L (3.5-5.1); Sodium 146 mmol/L (136-145); Triglyceride 98 mg/dL (<150)
[2023-06-16 08:26] LABS: ALT 18 U/L (16-63)
[2023-06-16 18:33] LABS: PSA, Diagnostic 28.4 ng/mL (<=4.5)
== END 2023-06-16 05:42 | disposition home or self-care (01) ==
LOC: LBO 05:41
PROVIDERS: Urology; PCP Nurse Practitioner; Visit Provider Nurse Practitioner
DX: R97.20 Elevated prostate specific antigen [PSA] (principal); I10 Essential (primary) hypertension
CPT/HCPCS: 36415; 80053; 80061; 84153

== ENCOUNTER 2024-02-16 16:31 | Outpatient (CLI) | payer MEDICARE, SELFPAY ==
[2024-02-16 13:47] LABS: Abs Immature Grans 0.02 10^3/uL (0.0-0.06); Absolute Basophil Count 0.02 10^3/uL (0.0-0.2); Absolute Eosinophil Count 0.05 10^3/uL (0.0-0.7); Absolute Lymphocyte Count 1.16 10^3/uL (1.2-3.4); Absolute Monocyte Count 0.26 10^3/uL (0.1-0.8); Absolute Neutrophil Count 4.32 10^3/uL (1.2-6.7); Basophils % 0.3 %; Eosinophils % 0.9 %; HCT 40.4 % (40.0-50.0); Immature Grans % 0.3 %; Lymphocytes % 19.9 %; MCH 30.8 pg (27.0-33.0); MCHC 34.7 % (32.0-36.0); MCV 89 fL (80-95); MPV 9.8 fL (8.0-11.0); Monocytes % 4.5 %; Neutrophils % 74.1 %; Platelet Count 283 10^3/uL (130-400); RBC 4.54 10^6/uL (4.36-5.78); RDW 12.2 % (11.8-14.1); RDW-SD 39.3 fL; WBC 5.83 10^3/uL (4.4-10.8)
[2024-02-16 14:06] LABS: ALT 39 U/L (16-63); AST 23 U/L (15-37); Albumin 3.8 g/dL (3.4-5.0); Alkaline Phosphatase 99 U/L (46-116); BUN 15 mg/dL (7-18); Bilirubin, Total 0.39 mg/dL (0.2-1.0); CREATININE 0.9 mg/dL (0.70-1.30); Calcium 9.8 mg/dL (8.5-10.1); Chloride 107 mmol/L (98-107); Estimated GFR 91.88 (mL/min/1.73m2); Glucose 113 mg/dL (74-106); Potassium 4.3 mmol/L (3.5-5.1); Sodium 142 mmol/L (136-145); Total Protein 8.1 g/dL (6.4-8.2)
--- OUTSIDE RECORDS SUMMARY | 2024-02-16 16:33 | XMS_ITS | Encounter Summary ---
Author Organization [facility] [place] [address] Care Team Providers Care Gas Jockey Name Role Phone Georgette Mercedes JUANITA Primary Care Provider Encounter Details Date Type Department Care Team (Late Contact Info) Description 02/05/2024 Telephone Hematology [place] [address] Katelin Cruz, RN Social History Tobacco Use Types Packs/Day Years Used Date Smoking Tobacco: Never Smokeless Tobacco: Never Alcohol Use Standard Drinks/Week Comments Yes 1 (1 standard drink = 0.6 oz pur e alcohol) Sex and Gender Information Value Date Recorded Sex Assigned at Not on file Gender Identity Not on file Sexual Orientation Not on file documented as of this encounter Miscellaneous Notes * Telephone Encounter - Katelin Cruz RN - 02/05/2024 12:15 PM EST Call placed to patient. Patient states he has not received his Zytiga yet, and is aware he needs tocall in once he does. documented in this encounter Plan of Treatment Upcoming Encounters Date Type Department Care Team (Late st Contact Info) Description 04/13/2024 3:00 PM EST Telephone Radiation Oncology at [address] [phone] St [facility] Hamm 04/20/2024 8:30 AM EDT Scheduled View Only Radiation Oncology at [address] [phone] St [facility] Hamm 04/20/2024 9:00 AM EDT Procedure visit Radiation Oncology at [address] [phone] David Barker MD [address] [place] [address] [place] [address] 04/20/2024 9:00 AM EDT Scheduled View Only Radiation Oncology at [address] [phone] 04/22/2024 3:30 PM EDT Infusion Hematology Oncology at [address] [phone] 04/25/2024 10:10 AM EDT [place] [address] David Barker MD [address] [place] [address] [place] [address] 04/25/2024 11:30 AM EDT Scheduled View Only [place] [address] 04/25/2024 12:00 PM EDT Ancillary Appointment [place] [address] David Barker MD [address] [place] [address] [place] [address] 04/25/2024 12:00 PM EDT Scheduled View [place] [address] documented as of this encounter Goals Goal Patient Goal Type Associated Problems Recent Progress Patient-Stated? Author Patient's specific desired goal: Patient Facing Action Plan Misael Alegria, [facility] Note: Goal(s): 95%+ adherence to abiraterone / prednisone regimen Measured by: MPR or similar adherence monitoring Time-frame: assessed annually by pharmacy documented as of this encounter Visit Diagnoses Not on filedocumented in this encounter Care Teams Gas Jockey Relationship Specialty Start Date End Date Georgette Mercedes, [employer] [address] [place] [address] PCP - General Internal Medicine 10/23/23 02/15/24 documented as of this encounter
--- OUTSIDE RECORDS SUMMARY | 2024-02-16 16:33 | XMS_ITS | Encounter Summary ---
[place] [address] Care Team Providers Care General House Worker Name Role Phone Jarret Patton DO Primary Care Provider [phone] Encounter Details Date Type Department Care Team (Latest Contact Info) Description 02/16/2024 Travel Social History Tobacco Use Types Packs/Day Years Used Date Smoking Tobacco: Never Smokeless Tobacco: Never Alcohol Use Standard Drinks/Week Comments Yes 1 (1 standard drink = 0.6 oz pur e alcohol) Sex and Gender Information Value Date Recorded Sex Assigned at Not on file Gender Identity Not on file Sexual Orientation Not on file documented as of this encounter Plan of Treatment Upcoming Encounters Date Type Department Care Team (Late st Contact Info) Description 04/13/2024 3:00 PM EST Telephone Radiation Oncology at [address] [phone] Jose Ferraro, [facility] 04/20/2024 8:30 AM EDT Scheduled View Only Radiation Oncology at [address] [phone] Jose Nurse, [facility] 04/20/2024 9:00 AM EDT Procedure visit Radiation Oncology at [address] [phone] David Barker MD [address] [place] [address] [place] [address] 04/20/2024 9:00 AM EDT Scheduled View Only Radiation Oncology at [address] [phone] 04/22/2024 3:30 PM EDT Infusion Hematology Oncology at [address] [phone] 04/25/2024 10:10 AM [place] [address] David Barker MD [address] [place] [address] DR RADIATION ONCOLOGY [place], [place] [address] 04/25/2024 11:30 AM EDT Scheduled View [place] [phone] 04/25/2024 12:00 PM EDT Ancillary Appointment [place] [address] David Barker MD [address] [place] [address] [place] [address] 04/25/2024 12:00 PM EDT Scheduled View Only [place] [phone] documented as of this encounter Goals Goal Patient Goal Type Associated Problems Recent Progress Patient-Stated? Author Patient's specific desired goal: Patient Facing Action Plan No Misael Weiss, [facility] Note: Goal(s): 95%+ adherence to abiraterone / prednisone regimen Measured by: MPR or similar adherence monitoring Time-frame: assessed annually by pharmacy documented as of this encounter Visit Diagnoses Not on filedocumented in this encounter Care Teams General House Worker Relationship Specialty Start Date End Date Jarret Patton DO [address] [place] [address] PCP - General Family Medicine 02/16/24 documented as of this encounter
--- OUTSIDE RECORDS SUMMARY | 2024-02-16 16:33 | XMS_ITS | Encounter Summary ---
Author Organization [facility] [place] [address] Care Team Providers Care Cloth Washer Name Role Phone Georgette Mercedes Thor GRANT Primary Care Provider [phone] Reason for Visit * Reason Onset Date Comments Chemotherapy Teaching 02/08/2024 Encounter Details Date Type Department Care Team (Late st Contact Info) Description 02/08/2024 Telephone Hematology [place] [address] Funmi Tobar, [facility] ROOM Chemotherapy Teaching Social History Tobacco Use Types Packs/Day Years [...] encounter Miscellaneous Notes * Telephone Encounter - Funmi Tobar RN - 02/08/2024 9:14 AM EST Message received from police department secretary: Usman called and lvm saying he got his meds but would not take them until he hears from someone here. [phone] Oral Chemotherapy Follow-up Note 02/08/2024 Usman Carver, 1955 Assessment of self-administration of oral chemotherapy is performed via phone call with patient. The patient: filled the prescription at pharmacy and will start taking this medication on 02/07 (date). read back the name and strength of the oral chemotherapy from the label, including the instructionsfor use as follows: Abiraterone 250 mg-take 4 tablets by mouth daily on an empty stomach along with prednisone 5 mg once daily with food was able to repeat directions for use in his/her own words and demonstrated understanding of the regimen, including safe handling of oral chemotherapy and its side effects. did not have further questions or problems regarding the oral chemotherapy. does not require further assistance in order to comply with oral chemotherapy. was reminded to call the oncology clinic with any concerns or questions 24 hours a day / 7 days a week and contact information was reviewed. Follow-up appointment 02/15 and [facility] with [address]. Duarte documented in this encounter Plan of Treatment Upcoming Encounters Date Type Department Care Team (Late st Contact Info) Description 04/13/2024 3:00 PM EST Telephone Radiation Oncology at [address] [phone] Rad Nurse, [facility] 04/20/2024 8:30 AM EDT Scheduled View Only Radiation Oncology at [address] [phone] Jose Nurse, [facility] 04/20/2024 9:00 AM EDT Procedure visit Radiation Oncology at [address] [phone] David Barker MD [address] [place] [address] [place] [address] 04/20/2024 9:00 AM EDT Scheduled View Only Radiation Oncology at [address] [phone] 04/22/2024 3:30 PM EDT Infusion Hematology Oncology at [address] [phone] 04/25/2024 10:10 AM EDT [place] [address] David Barker MD [address] [place] [address] [place] [address] 04/25/2024 11:30 AM EDT Scheduled View Only [place] [address] 04/25/2024 12:00 PM EDT Ancillary Appointment [place] [address] David Barker MD [address] [place] [address] [place] [address] 04/25/2024 12:00 PM EDT Scheduled View [place] [address] documented as of this encounter Goals Goal Patient Goal Type Associated Problems Recent Progress Patient-Stated? Author Patient's specific desired goal: Patient Facing Action Plan No Misael Weiss, [facility] Note: Goal(s): 95%+ adherence to abiraterone / prednisone regimen Measured by: MPR or similar adherence monitoring Time-frame: assessed annually by pharmacy documented as of this encounter Visit Diagnoses Not on filedocumented in this encounter Care Teams Cloth Washer Relationship Specialty Start Date End Date Georgette Mercedes APRN [address] [place] [address] PCP - General Internal Medicine 10/23/23 02/15/24 documented as of this encounter
--- OUTSIDE RECORDS SUMMARY | 2024-02-16 16:33 | XMS_ITS | Encounter Summary ---
Author Organization [facility] [place] [address] Care Team Providers Care Orchard Hand Name Role Phone Georgette Mercedes JUANITA Primary Care Provider [phone] Encounter Details Date Type Department Care Team (Latest Contact Info) Description 02/02/2024 Specialty [place] [phone] Misael Weiss, [facility] Initial Clinical Assessment/Patient Education (abiraterone acetate) for HemOnc Social History Tobacco Use Types Packs/Day Years Used Date Smoking Tobacco: Never Smokeless Tobacco: Never Alcohol Use Standard Drinks/Week Comments Yes 1 (1 standard drink = 0.6 oz pur e alcohol) Sex and Gender Information Value Date Recorded Sex Assigned at Not on file Gender Identity Not on file Sexual Orientation Not on file documented as of this encounter Progress Notes * Misael Weiss [facility] - 02/02/2024 11:27 AM EST Specialty Pharmacy Ongoing Clinical Assessment Note Comprehensive Medication Management (CMM) Usman Carver is a 68 y.o. (1955) male, who is being followed by [facility] for service of Abiraterone Acetate. A review of the medication therapy was performed. The medication wasfilled as scheduled, and all medication related questions and concerns were addressed. The specialty pharmacy staff will follow up with the patient 5-7 days prior to next refill. Problems Linked to Specialty Episode(s) Malignant neoplasm of prostate Therapy Start Date: To be determined Summary and Recommendations: I provided an initial consultation and assessment with Usman regarding his abiraterone (& prednisone) therapy. We had previously sent the prednisone and he actually started taking it but when he realized there was a delay in the processing of the abiraterone (benefits investigation) he stopped. He now knows that he will wait to restart the prednisone when he receives and starts the abiraterone. We reviewed the dose of abiraterone (4 @ 250mg tablets, total 1000mg) by mouth on an empty stomach once daily at approximately the same time each day. Usman said he will try it first thing in the morning for now, an hour before breakfast. We reviewed the warnings and precautions (adrenal insuf ficiency, cardiac effects, hepatotoxicity, diabetes warning) as well as common side effects such asedema, increased BP, hot flashes, blood count changes, blood chemistry changes, infection risk, fatigue, joint / muscle pain, cough / dyspnea. Based on his present use of antihypertensive therapy, I urged Usman to monitor his BP and inform his PCP of the risk of it rising. We reviewed his allergylist (NKDA) and reconciled his medication list (no drug interactions identified). Usman's goal isto take the abiraterone and prednisone consistently and to be adherent to the regimen, to keep his appointments and get his labs done when requested. He denies any serious pain and rates his quality o f life at 9-10 on a scale of 1 to 10 (excellent) noting that he had a hip replacement a couple years ago and feels better now than then. He is aware to call Dr Duarte's clinic when he receives theabiraterone, before starting. Is patient willing to proceed with Clinical Assessment?: Yes Clinic follow-up needed: Yes Comments: pt has frequent follow-up visits with [facility] in [facility] Pharmacist follow-up needed: Yes Comments: pharmacy will follow-up in approximately 1 month Allergies and Drug intolerance: No Known Allergies Problem List: Patient Active Problem List Diagnosis Code Malignant neoplasm of prostate C61 Medication List: Current Outpatient Medications Medication Sig Dispense Refill abiraterone (Zytiga) 250 mg tablet Take 4 tablets (1,000 mg) by mouth daily. Take medication on empty stomach at least 1 hour before or 2 hours after meals. Call clinic before starting medication. Indications: metastatic castration- sensitive prostate cancer 120 tablet 11 predniSONE (Deltasone) 5 mg tablet Take 1 tablet by mouth daily. 30 tablet 11 amLODIPine (Norvasc) 5 mg tablet Take 5 mg by mouth daily. lisinopriL (Zestril) 40 mg tablet Take 40 mg by mouth daily. No current facility-administered medications for this visit. Medication reconciliation discrepancies (compared to [facility] med list): No Special dietary or hydration requirements: Yes Comments: abiraterone is recommended on an empty stomach Specialty Assessment and Patient Counseling: Specialty Assessment completed: Yes Delivery method: Delivery Welcome Packet and Rights and Responsibilities: Patient provided welcome packet/rights and responsibilities: Yes Patient Counseling Completed: Yes Reviewed in detail with patient: Dose appropriateness based on recommended standard dosing Current medication list including OTC medications Medication and disease problems Allergies Comorbid conditions/ Problem List Past adverse events if any Special needs of the patient including physical and cognitive limitations Goals of therapy and management strategies Warnings, precautions, and contraindications Side effects Drug-drug and drug-food interactions Administration instructions including dose, frequency and method Handling, storage, and disposal Verifying expiration dates on products before use Rotating medication inventory to use oldest product first Relevant lab data Treatments impact on disease Dose appropriateness based on recommended standard dosing schedule, including any variations from FDA approved dosing Disease-Specific Assessment and Outcomes: 02/02/2024 Hem/Onc Current therapy Abiraterone Acetate Condition prostate cancer, metastatic Other non-specialty medications being currently used for the diagnosis prednisone Were relevant labs reviewed by the pharmacist? Yes Has the patient been prescribed infection prophylaxis? N/A Has the patient been prescribed TLS prophylaxis? N/A If the patient is experiencing a side effect, is the associated adjunct medication supplied/ordered? No Reviewed with patient pertienent risk factors cross referencing past medical history, history of present illness Yes Patient's goals: Goals/Expected Outcomes Reviewed: Yes Goals Addressed This Visit's Progress Patient's specific desired goal: Goal(s): 95%+ adherence to abiraterone / prednisone regimen Measured by: MPR or similar adherence monitoring Time-frame: assessed annually by pharmacy Therapy Assessment and Recommendations: Therapy Assessment: Appropriate Therapy: Yes Patient Problems/Needs: prostate cancer (metastatic) with PSA increasing On a scale of 1-10, what is the patient's overall confidence in administering this medication(s)?: 9-10 Monitoring requirements for prescribed medication: blood counts and chemistries, LFTs, BP, PSA Care Plan reviewed and approved by both pharmacist and patient: Yes Did care plan change?: No Medication Therapy Recommendations No medication therapy recommendations to display This is a: New-Start Consult Misael Weiss RPH 02/02/24 12:22 PM documented in this encounter Plan of Treatment Upcoming Encounters Date Type Department Care Team (Late st Contact Info) Description 04/13/2024 3:00 PM EST Telephone Radiation Oncology at [address] [phone] Rad Nurse, [facility] 04/20/2024 8:30 AM EDT Scheduled View Only Radiation Oncology at [address] [phone] Rad Nurse, [facility] 04/20/2024 9:00 AM EDT Procedure visit Radiation Oncology at [address] [phone] David Barker MD [address] [place] [address] DR [place] [address] 04/20/2024 9:00 AM EDT Scheduled View Only Radiation Oncology at [address] [phone] 04/22/2024 3:30 PM EDT Infusion Hematology Oncology at [address] [phone] 04/25/2024 10:10 AM [place] [address] David Barker MD [address] [place] [address] [place] [address] 04/25/2024 11:30 AM EDT Scheduled View [place] [address] 04/25/2024 12:00 PM EDT Ancillary Appointment [place] [phone] David Barker MD [address] [place] [address] DR RADIATION ONCOLOGY [place], [place] [address] 04/25/2024 12:00 PM EDT Scheduled View [place] [address] documented as of this encounter Goals Goal Patient Goal Type Associated Problems Recent Progress Patient-Stated? Author Patient's specific desired goal: Patient Facing Action Plan No Misael Weiss, [facility] Note: Goal(s): 95%+ adherence to abiraterone / prednisone regimen Measured by: MPR or similar adherence monitoring Time-frame: assessed annually by pharmacy documented as of this encounter Visit Diagnoses Not on filedocumented in this encounter Care Teams Orchard Hand Relationship Specialty Start Date End Date Georgette Mercedes, JUANITA [address] [place] [address] PCP - General Internal Medicine 10/23/23 02/15/24 documented as of this encounter
--- OUTSIDE RECORDS SUMMARY | 2024-02-16 16:33 | XMS_ITS | Encounter Summary ---
Author Organization [facility] [place] [address] Care Team Providers Care Flying Shear Operator Name Role Phone Georgette Mercedes JUANITA Primary Care Provider [phone] Encounter Details Date Type Department Care Team (Late Contact Info) Description 02/06/2024 Telephone Hematology [place] [phone] Sid Mix MD [facility] DR HEMATOLOGY/[place] [address] Social History Tobacco Use Types Packs/Day Years Used Date Smoking Tobacco: Never Smokeless Tobacco: Never Alcohol Use Standard Drinks/Week Comments Yes 1 (1 standard drink = 0.6 oz pur e alcohol) Sex and Gender Information Value Date Recorded Sex Assigned at Not on file Gender Identity Not on file Sexual Orientation Not on file documented as of this encounter Progress Notes * Sid Mix MD - 02/06/2024 12:57 PM EST Usman Carver is a 68 year old male with a history of prostate cancer who is calling to let us know that he will be starting his abiraterone and prednisone. He confirmed the doses he will take along with how he will take them. He plans on starting them on Thursday. I encouraged him to call back if there were any questions or concerns. documented in this encounter Plan of Treatment Upcoming Encounters Date Type Department Care Team (Late st Contact Info) Description 04/13/2024 3:00 PM EST Telephone Radiation Oncology at [address] [phone] [facility] 04/20/2024 8:30 AM EDT Scheduled View Only Radiation Oncology at [address] [phone] Rad Nurse, [facility] 04/20/2024 9:00 AM EDT Procedure visit Radiation Oncology at [address] [phone] David Barker MD [address] [place] [address] [place] [address] 04/20/2024 9:00 AM EDT Scheduled View Only Radiation Oncology at [address] [phone] 04/22/2024 3:30 PM EDT Infusion Hematology Oncology at [address] [phone] 04/25/2024 10:10 AM EDT [place] [address] David Barker MD [address] [place] [address] [place] [address] 04/25/2024 11:30 AM EDT Scheduled View Only [place] [address] 04/25/2024 12:00 PM EDT Ancillary Appointment [place] [address] David Barker MD [address] [place] [address] [place] [address] 04/25/2024 12:00 PM EDT Scheduled View Only [place] [address] documented as of this encounter Goals Goal Patient Goal Type Associated Problems Recent Progress Patient-Stated? Author Patient's specific desired goal: Patient Facing Action Plan Misael Alegria, [facility] Note: Goal(s): 95%+ adherence to abiraterone / prednisone regimen Measured by: MPR or similar adherence monitoring Time-frame: assessed annually by pharmacy documented as of this encounter Visit Diagnoses Not on filedocumented in this encounter Care Teams Flying Shear Operator Relationship Specialty Start Date End Date Georgette Mercedes APRN [address] [place] [address] PCP - General Internal Medicine 10/23/23 02/15/24 documented as of this encounter
--- OUTSIDE RECORDS SUMMARY | 2024-02-16 16:33 | XMS_ITS | Encounter Summary ---
[place] [address] Care Team Providers Care Edge Blacker Name Role Phone Georgette Mercedes JUANITA Primary Care Provider [phone] Reason for Referral * Diagnostic Test (Routine) - Authorized Specialty Diagnoses / Procedures Referred By Contac t Referred To Contact Radiology Diagnoses Malignant neoplasm of prostate Procedures MRI Pelvis wo (Prostate) David Barker MD [address] [place] [address] [place] [address] [facility] [place] [address] Referral ID Status Reason Start Date Expiration Date Visits Requested Visits Authorized [id number] Authorized Specialty Service Requested 06/30/2025 1 1 * Consultation (Routine) - Authorized Specialty Diagnoses / Procedures Referred By Yaneli sepulveda Referred To Contact Radiation Oncology Diagnoses Malignant neoplasm of prostate Procedures Simulation for Radiation Therapy Planning David Barker MD [address] [place] [address] [place] [address] [facility] [place] [address] Referral ID Status Reason Start Date Expiration Date Visits Requested Visits Authorized [id number] Authorized Consult, Test & Treat 01/01/2024 12/31/2024 [age] Encounter Details Date Type Department Care Team (Late st Contact Info) Description 01/01/2024 8:30 AM EST Office Visit Radiation Oncology at [address] [phone] David Barker MD [address] [place] [address] DR RADIATION ONCOLOGY [place], [place] [id number] Malignant neoplasm of prostate Social History Tobacco Use Types Packs/Day Years Used Date Smoking Tobacco: Never Smokeless Tobacco: Never Alcohol Use Standard Drinks/Week Comments Yes 1 (1 standard drink = 0.6 oz pur e alcohol) Sex and Gender Information Value Date Recorded Sex Assigned at Not on file Gender Identity Not on file Sexual Orientation Not on file documented as of this encounter Last Filed Vital Signs Vital Sign Reading Time Taken Comments Blood Pressure 159/90 01/01/2024 8:26 AM EST Pulse 68 01/01/2024 8:26 AM EST Temperature 36.9 ??C (98.4 ??F) 01/01/2024 8:26 AM ES T Respiratory Rate 18 01/01/2024 8:26 AM EST Oxygen Saturation 100% 01/01/2024 8:26 AM EST Inhaled Oxygen Concentration - - Weight - - Height - - Body Mass Index - - documented in this encounter Progress Notes * David Barker MD - 01/01/2024 8:30 AM EST Images from the original note were not included. Radiation Oncology Established Patient Follow Up Note David Barker MD, MS [facility] PATIENT IDENTIFICATION: PATIENT NAME: Usman Carver DATE OF : 1955 PRIMARY CARE PROVIDER: Georgette Mercedes APRN DATE OF SERVICE: 01/01/2024 PATIENT SUMMARY: Usman is a 68 y.o.M with high risk prostate cancer previously seen in consultation. As we left the discussion at our last visit, he was considering the various radiation therapy options including clinical trial [id number]. INTERVAL SUBJECTIVE HISTORY: Since last seen, Usman reports feeling in his overall usual state of health. He otherwise reports no change in his overall medical condition and is here today to further discuss the treatment plan for his prostate cancer. INTERVAL OBJECTIVE HISTORY: PSMA PET/CT 12/28/23 - 1. PSMA positive prostatic malignancy. 2. Small armando metastases in the left external iliac, presacral, and bilateral mesorectal regions. PHYSICAL EXAM: BP 159/90 (Patient Position: Sitting) Pulse 68 Temp 36.9 ??C (98.4 ??F) (Temporal) Resp 18 SpO2 100% General: alert, appears stated age, and in no distress sitting in exam room alone TODAY'S PERFORMANCE STATUS: KPS Score ECOG Grade Definition XX 90-100 0 Fully active, able to carry on all pre-disease performance without restriction 70-80 1 Restricted in physically strenuous activity but ambulatory and able to carry out work of a light or sedentary nature, e.g., light house work, office work 50-60 2 Ambulatory and capable of all selfcare but unable to carry out any work activities; up and about more than 50% of waking hours 30-40 3 Capable of only limited selfcare; confined to bed or chair more than 50% of waking hours 10-20 4 Completely disabled; cannot carry on any selfcare; totally confined to bed or chair ASSESSMENT / PLAN: 68 y.o.M with very high risk (cT1c, GG5, PSA 23) prostate cancer. Recent PSMA PET showed low volumeregional armando metastatic disease. Logistics, toxicities and complications of LT-ADT + pelvic / prostatic radiation were reviewed withthe patient today. We discussed the clinical trial of SBRT as well. He would like to proceed off trial with standard MH-EBRT. Afterwards, informed consent for fiducial marker, CT simulation and external beam radiotherapy was obtained. Nursing staff will provide additional teaching with regard to pre and post procedure medications. Dagarelix 240mg loading dose will be administered by nursing later today, with Lupron maintenance to continue in 4 weeks' time. All of Usman's questions were answered to his fullest satisfaction, and we have provided him withour contact information should any further questions or concerns arise. TIME ATTESTATION: I certify spending at least 40 minutes in providing care to this patient today, 01/01/24 as reflected by the following activities: - review of his medical record in the chart, including interpretation of imaging studies referencedabove - discussion of the above with the patient as part of shared medical decision making - documenting the outcome of today's visit as above DAVID BARKER MD, MS documented in this encounter Plan of Treatment Upcoming Encounters Date Type Department Care Team (Late st Contact Info) Description 04/13/2024 3:00 PM EST Telephone Radiation Oncology at [address] [phone] Rad Nurse, [facility] 04/20/2024 8:30 AM EDT Scheduled View Only Radiation Oncology at [address] [phone] Rad Nurse, [facility] 04/20/2024 9:00 AM EDT Procedure visit Radiation Oncology at [address] [phone] David Barker MD [address] [place] [address] [place] [address] 04/20/2024 9:00 AM EDT Scheduled View Only Radiation Oncology at [address] [phone] 04/22/2024 3:30 PM EDT Infusion Hematology Oncology at [address] [phone] 04/25/2024 10:10 AM [place] [address] David Barker MD [address] [place] [address] [place] [address] 04/25/2024 11:30 AM EDT Scheduled View [place] [address] 04/25/2024 12:00 PM EDT Ancillary Appointment [place] [address] David Barker MD [address] [place] [address] [place] [address] 04/25/2024 12:00 PM EDT Scheduled View Only [place] [address] Scheduled Orders Name Type Priority Associated Diagnoses Orde r Schedule Simulation for Radiation Therapy Planning Radiation Oncology Routine Malignant neoplasm of prostate Expected: 01/01/2024, Expires: 07/02/2024 MRI Pelvis wo (Prostate) Imaging Routine Malignant neoplasm of prostate Expected: 01/29/2024 (Approximate), Expires: 07/30/2024 documented as of this encounter Visit Diagnoses Diagnosis Malignant neoplasm of prostate documented in this encounter Care Teams Edge Blacker Relationship Specialty Start Date End Date Georgette Mercedes APRN [address] [place] [address] PCP - General Internal Medicine 10/23/23 02/15/24 documented as of this encounter
--- OUTSIDE RECORDS SUMMARY | 2024-02-16 16:33 | XMS_ITS | Encounter Summary ---
Author Organization [facility] Address [facility] [place] [address] Care Team Providers Care Theology Teacher Name Role Phone Georgette Mercedes JUANITA Primary Care Provider [phone] Reason for Visit * Diagnostic Test (Routine) - Closed Specialty Diagnoses / Procedures Referred By Contac t Referred To Contact Radiology Diagnoses Malignant neoplasm of prostate Procedures NM PET CT PSMA Prostate (Illuccix) Mingo Chiu MD [facility] [place] [address] [place] [address] Referral ID Status Reason Start Date Expiration Date V isits Requested Visits Authorized [id number] Closed Specialty Service Requested 11/20/2023 05/20/2025 1 1 Encounter Details Date Type Department Care Team (Latest Contact Info) Description 12/28/2023 6:02 AM EST - 12/28/2023 11:59 PM [facility] Hospital Encounter [place] [address] Mingo Chiu MD [facility] [address] Discharge Disposition: Home Social History Tobacco Use Types Packs/Day Years Used Date Smoking Tobacco: Never Smokeless Tobacco: Never Alcohol Use Standard Drinks/Week Comments Yes 1 (1 standard drink = 0.6 oz pur e alcohol) Sex and Gender Information Value Date Recorded Sex Assigned at Not on file Gender Identity Not on file Sexual Orientation Not on file documented as of this encounter Medications at Time of Discharge Medication Sig Dispensed Refills Start Date End Date amLODIPine (Norvasc) 5 mg tablet Take 5 mg by mouth daily. 10/02/2023 lisinopriL (Zestril) 40 mg tablet Take 40 mg by mouth daily. 10/02/2023 documented as of this encounter Plan of Treatment Upcoming Encounters Date Type Department Care Team (Late st Contact Info) Description 04/13/2024 3:00 PM EST Telephone Radiation Oncology at [address] [address] Jose Nurse, [facility] 04/20/2024 8:30 AM EDT Scheduled View Only Radiation Oncology at [address] [phone] Rad Nurse, [facility] 04/20/2024 9:00 AM EDT Procedure visit Radiation Oncology at [address] [phone] David Barker MD [address] [place] [address] [place] [address] 04/20/2024 9:00 AM EDT Scheduled View Only Radiation Oncology at [address] [phone] 04/22/2024 3:30 PM EDT Infusion Hematology Oncology at [address] [phone] 04/25/2024 10:10 AM EDT [place] [address] David Barker MD [address] [place] [address] [place] [address] 04/25/2024 11:30 AM EDT Scheduled View Only [place] [phone] 04/25/2024 12:00 PM EDT Ancillary Appointment [place] [address] David Barker MD [address] [place] [address] [place] [address] 04/25/2024 12:00 PM EDT Scheduled View [place] [address] documented as of this encounter Procedures Procedure Name Priority Date/Time Associated Diagnosis Comments NM PET CT PSMA PROSTATE (ILLUCCIX) Routine 12/28/2023 8:14 AM EST Malignant neoplasm of prostate documented in this encounter Results * NM PET CT PSMA Prostate (Illuccix) (12/28/2023 8:14 AM EST) [employer] WORKSTATION ID [id number] [facility] Anatomical Region Laterality Modality Positron Emissio n Tomography (PET) Impressions 12/30/2023 11:47 AM EST 1. ??PSMA positive prostatic malignancy. 2. 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 3. ??CT visualized sub-6 mm right lower lobe pulmonary nodule. If priors are available, comparison could be made for stability. Otherwise, consider follow-up with low-dose non-contrast CT chest in 6 months. Thank you for referring this patient to [facility]. I have personally reviewed the image(s) and the resident's interpretation and agree with the findings, Jose Mehta MD at 12/30/2023 11:47 AM Thank you for letting us participate in the care of this patient. ??If you are a health care provider and have any questions regarding this report, please contact the number below. ??For patients who have questions please contact the health pediatric care coordinator that requested your imaging first. ? Electronically signed by: Jose Mehta MD, [facility] ([phone]), at 12/30/2023 11:47 AM Narrative 12/30/2023 11:47 AM EST EXAMINATION: NM PET CT PSMA PROSTATE (ILLUCCIX) CLINICAL HISTORY: high risk prostate cancer C61, Malignant neoplasm of prostate TECHNIQUE: Following IV injection of Ga 68 PSMA-11 (Illuccix) and a standard uptake of approximately 60 minutes, a noncontrast CT scan followed by a PET scan were acquired from the top of the head to mid thighs. The noncontrast CT was used for anatomic localization and photon attenuation correction of the PET scan. Ga 68 PSMA-11 (Illuccix) Dose: 4.7 mCi COMPARISON: Prostate MRI 10/13/2023. FINDINGS: HEAD/NECK: Normal activity in all soft tissue regions. Physiologic activity present in the lacrimal and salivary glands. No adenopathy. CHEST: Normal activity in all soft tissue regions. Nontracer avid sub-6 mm nodule in the posterior right lower lobe (image 144). No adenopathy. Aortic calcifications. ABDOMEN/PELVIS: Heterogeneous tracer uptake in the prostate from base to apex with extension into the right seminal vesicle. Small PSMA positive midline pre-presacral (image 284), right mesorectal (axial image 2084), left mesorectal (PET image 293, CT image 295), and left external iliac axial (image 272) nodes. Physiologic activity is present in the liver, spleen, collecting system, and GI tract. Simple hepatic cyst. Simple bilateral renal cysts. Diffuse fatty infiltration of the pancreas Diverticulosis. SKELETON/EXTREMITIES: Normal activity in all regions of the axial and visualized proximal appendicular skeleton. Total right hip arthroplasty Procedure Note Jose Mehta MD - 12/30/2023 EXAMINATION: NM PET CT PSMA PROSTATE (ILLUCCIX) CLINICAL HISTORY: high risk prostate cancer C61, Malignant neoplasm of prostate TECHNIQUE: Following IV injection of Ga 68 PSMA-11 (Illuccix) and astandard uptake of approximately 60 minutes, a noncontrast CT scan followed by aPET scan were acquired from the top of the head to mid thighs. The noncontrast CTwas used for anatomic localization and photon attenuation correction of thePET scan. Ga 68 PSMA-11 (Illuccix) Dose: 4.7 mCi COMPARISON: Prostate MRI 10/13/2023. FINDINGS: HEAD/NECK: Normal activity in all soft tissue regions. Physiologic activity presentin the lacrimal and salivary glands. No adenopathy. CHEST: Normal activity in all soft tissue regions. Nontracer avid sub-6 mm nodule in the posterior right lower lobe ([id number]). No adenopathy. Aortic calcifications. ABDOMEN/PELVIS: Heterogeneous tracer uptake in the prostate from base to apex withextension into the right seminal vesicle. Small PSMA positive midline pre-presacral (image 284), right mesorectal(axial image 2084), left mesorectal (PET image 293, CT image 295), and leftexternal iliac axial (image 272) nodes. Physiologic activity is present in the liver, spleen, collecting system,and GI tract. Simple hepatic cyst. Simple bilateral renal cysts. Diffuse fattyinfiltration of the pancreas Diverticulosis. SKELETON/EXTREMITIES: Normal activity in all regions of the axial and visualized proximalappendicular skeleton. Total right hip arthroplasty IMPRESSION 1. PSMA positive prostatic malignancy. 2. 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 3. CT visualized sub-6 mm right lower lobe pulmonary nodule. If priorsare available, comparison could be made for stability. Otherwise, considerfollow-up with low-dose non-contrast CT chest in 6 months. Thank you for referring this patient to [facility]. I have personally reviewed the image(s) and the resident's interpretationand agree with the findings, Jose Mehta MD at 12/30/2023 11:47 AM Thank you for letting us participate in the care of this patient. If youare a health care provider and have any questions regarding this report,please contact the number below. For patients who have questions please contactthe health pediatric care coordinator that requested your imaging first. Electronically signed by: Jose Mehta MD, [facility]([phone]), at 12/30/2023 11:47 AM Mingo Chiu MD IMG PET ORDERABLES documented in this encounter Visit Diagnoses Not on filedocumented in this encounter Care Teams Theology Teacher Relationship Specialty Start Date End Date Georgette Mercedes, GARNISHMENT SPECIALIST [address] [place] [address] PCP - General Internal Medicine 10/23/23 02/15/24 documented as of this encounter
--- OUTSIDE RECORDS SUMMARY | 2024-02-16 16:33 | XMS_ITS | Encounter Summary ---
Author Organization [facility] [place] [address] Care Team Providers Care Ldr Nurse Name Role Phone Georgette Mercedes Thor GRANT Primary Care Provider [phone] Encounter Details Date Type Department Care Team (Late st Contact Info) Description 01/14/2024 Orders Only Hematology [place] [address] Tg Burrows APRN [facility] [place] [address] Social History Tobacco Use Types Packs/Day Years Used Date Smoking Tobacco: Never Smokeless Tobacco: Never Alcohol Use Standard Drinks/Week Comments Yes 1 (1 standard drink = 0.6 oz pur e alcohol) Sex and Gender Information Value Date Recorded Sex Assigned at Not on file Gender Identity Not on file Sexual Orientation Not on file documented as of this encounter Progress Notes * Tg Burrows APRN - 01/14/2024 12:33 PM EST Zytiga 250 mg dose sent to [facility] per pt request for cost * Daylin Francisco RN - 01/14/2024 12:33 PM EST Oral Chemotherapy Check Note 01/15/2024 Usman Carver, 1955 Prescriptions for oral chemotherapy were reviewed as follows: Oral Chemotherapy Order abiraterone (Zytiga): Order details: Dose: 1000 mg This is NOT a change in dose but is a Change in Tablet strength. Zytiga 250 mg 4 tablets (1000 mg) daily. Route: oral Quantity to be dispensed #: 120 tablets Number of refills: eleven (11) Instructions: : Take 4 tablets (1,000 mg) by mouth daily. Take medication on empty stomach at least1 hour before or 2 hours after meals. Cycle number and length: Daily Start date: when received Plan of care compared to information in the medical record, including note from provider on 01/15/2024 (date). The prescription was found To be complete and accurate. [facility] documented in this encounter Plan of Treatment Upcoming Encounters Date Type Department Care Team (Late st Contact Info) Description 04/13/2024 3:00 PM EST Telephone Radiation Oncology at [address] [phone] Jose Nurse, [facility] 04/20/2024 8:30 AM EDT Scheduled View Only Radiation Oncology at [address] [phone] Jose Nurse, [facility] 04/20/2024 9:00 AM EDT Procedure visit Radiation Oncology at [address] [phone] David Barker MD [address] [place] [address] [place] [address] 04/20/2024 9:00 AM EDT Scheduled View Only Radiation Oncology at [address] [address] 04/22/2024 3:30 PM EDT Infusion Hematology Oncology at [address] [address] 04/25/2024 10:10 AM [place] [address] David Barker MD [address] [place] [address] [place] [address] 04/25/2024 11:30 AM EDT Scheduled View [place] [address] 04/25/2024 12:00 PM EDT Ancillary Appointment [place] [address] David Barker MD [address] [place] [address] DR RADIATION ONCOLOGY [place], [place] [address] 04/25/2024 12:00 PM EDT Scheduled View [place] [address] documented as of this encounter Visit Diagnoses Not on filedocumented in this encounter Care Teams Ldr Nurse Relationship Specialty Start Date End Date Georgette Mercedes APRN [address] [place] [address] PCP - General Internal Medicine 10/23/23 02/15/24 documented as of this encounter
--- OUTSIDE RECORDS SUMMARY | 2024-02-16 16:33 | XMS_ITS | Encounter Summary ---
Author Organization [facility] [place] [address] Care Team Providers Care Superintendent Menagerie Name Role Phone Mago Georgette Thor GRANT Primary Care Provider Encounter Details Date Type Department Care Team (Latest Contact Info) Description 01/13/2024 Travel Social History Tobacco Use Types Packs/Day [...] 3:00 PM EST Telephone Radiation Oncology at [address] [phone] Jose Nurse, [facility] 04/20/2024 8:30 AM EDT Scheduled View Only Radiation Oncology at [address] [phone] Jose Nurse, [facility] 04/20/2024 9:00 AM EDT Procedure visit Radiation Oncology at [address] [phone] David Barker MD [address] [place] [address] [place] [address] 04/20/2024 9:00 AM EDT Scheduled View Only Radiation Oncology at [address] [phone] 04/22/2024 3:30 PM EDT Infusion Hematology Oncology at [address] [phone] 04/25/2024 10:10 AM ED[place] [address] David Barker MD [address] [place] [address] [place] [address] 04/25/2024 11:30 AM EDT Scheduled View Only [place] [address] 04/25/2024 12:00 PM EDT Ancillary Appointment [place] [address] David Barker MD [address] [place] [address] [place] [address] 04/25/2024 12:00 PM EDT Scheduled View [place] [address] documented as of this encounter Visit Diagnoses Not on filedocumented in this encounter Care Teams Superintendent Menagerie Relationship Specialty Start Date End Date Georgette Mercedes APRN [address] [place] [address] PCP - General Internal Medicine 10/23/23 02/15/24 documented as of this encounter
--- OUTSIDE RECORDS SUMMARY | 2024-02-16 16:33 | XMS_ITS ---
Author Organization [facility] [place] [address] Care Team Providers Care Steam Shovel Runner Name Role Phone ChiJarret amezquita Primary Care Provider [phone] Active Problems Problem Noted Date Diagnosed Date Malignant neoplasm of prostate 12/23/2023 Cancer Staging:Clinical:Stage IIIC(cT1c, cN0, cM0, PSA: 28, Grade Group: 5) - Signed by David Barker MD on 12/23/2023 Current Oncology Plans Leuprolide (Lupron Depot) Injection ([facility], [facility], [facility]) Adult* Plan Start Date:04/26/2024 Plan Provider:Agusto Duarte MD Linked Problems Malignant neoplasm of prosta te Treatment Medications No medications scheduled. Past Plans Therapy Plan 1 Plan Name Start Date Discontinue Date Treatment Medications Discontinue Reason Plan Provider Degarelix (Firmagon) Injection ([facility] HemOnc) New Patient Induction 01/01/2024 02/16/2024 No medications scheduled. Therapy Complete David Barker MD Therapy Plan 2 Plan Name Start Date Discontinue Date Treatment Medications Discontinue Reason Plan Provider Leuprolide (Lupron Depot) Injection ([facility], [facility], [facility], [facility], [facility]) Adult 01/29/2024 02/16/2024 No medications scheduled. Change In Level Of Care David Barker MD Radiation Treatments * No radiation treatments are documented for this patient in [facility]. Treatments may have been administered in another system.
--- OUTSIDE RECORDS SUMMARY | 2024-02-16 16:33 | XMS_ITS | Encounter Summary ---
Author Organization [facility] [place] [address] Care Team Providers Care Court Interpreter Name Role Phone Georgette Mercedes JUANITA Primary Care Provider [phone] Encounter Details Date Type Department Care Team (Late st Contact Info) Description 11/24/2023 Telephone Radiation Oncology at [address] [phone] Renee Cerda Social History Tobacco Use Types Packs/Day Years Used Date Smoking Tobacco: Never Assessed Sex and Gender Information Value Date Recorded Sex Assigned at Not on file Gender Identity Not on file Sexual Orientation Not on file documented as of this encounter Miscellaneous Notes * Telephone Encounter - Renee Cerda - 11/24/2023 4:39 PM EDT I spoke with Usman in regards to getting him scheduled with Dr. Barker for Radiation Oncology. Usman informed me that he was seeing his urologist tomorrow morning and wanted to discuss it with him prior to making an appointment here. I gave Usman our phone number to call us with his decision on pursuing radiation treatment. documented in this encounter Plan of Treatment Upcoming Encounters Date Type Department Care Team (Late st Contact Info) Description 04/13/2024 3:00 PM EST Telephone Radiation Oncology at [address] [address] Jose Ferraro [facility] 04/20/2024 8:30 AM EDT Scheduled View Only Radiation Oncology at [address] [address] [facility] 04/20/2024 9:00 AM EDT Procedure visit Radiation Oncology at [address] [address] David Barker MD [address] [place] [address] [place] [address] 04/20/2024 9:00 AM EDT Scheduled View Only Radiation Oncology at [address] [address] 04/22/2024 3:30 PM EDT Infusion Hematology Oncology at [address] [address] 04/25/2024 10:10 AM EDT [place] [address] David Barker MD [address] [place] [address] [place] [address] 04/25/2024 11:30 AM EDT Scheduled View Only [place] [address] 04/25/2024 12:00 PM EDT Ancillary Appointment [place] [address] aDvid Barker MD [address] [place] [address] [place] [address] 04/25/2024 12:00 PM EDT Scheduled View [place] [address] documented as of this encounter Visit Diagnoses Not on filedocumented in this encounter Care Teams Court Interpreter Relationship Specialty Start Date End Date Georgette Mercedes APRN [address] [place] [address] PCP - General Internal Medicine 10/23/23 02/15/24 documented as of this encounter
--- OUTSIDE RECORDS SUMMARY | 2024-02-16 16:33 | XMS_ITS | Encounter Summary ---
Author Organization [facility] [place] [address] Care Team Providers Care Metal Drilling Machine Operator Name Role Phone Georgette Mercedes JUANITA Primary Care Provider Encounter Details Date Type Department Care Team (Late st Contact Info) Description 12/01/2023 Telephone Radiation Oncology at [address] [phone] Renee Cerda Social History Tobacco Use Types Packs/Day Years Used Date Smoking Tobacco: Never Assessed Sex and Gender Information Value Date Recorded Sex Assigned at Not on file Gender Identity Not on file Sexual Orientation Not on file documented as of this encounter Miscellaneous Notes * Telephone Encounter - Renee Cerda - 12/01/2023 2:07 PM EDT Radiation Oncology New Patient Scheduling Note I called Usman to inform him that Dr. Chiu has referred him to see Dr. Barker for a radiation new patient consultation. I have confirmed his appointments on 12/24/23 will include a 30 minute visit at 1:30p to see our clinic nurse, followed by a [address] Barker. I have requested that he arrive 15 minutes early in order to complete paperwork. I confirmed our address and answered all of his questions, and our contact information should any further questions or concerns arise. documented in this encounter Plan of Treatment Upcoming Encounters Date Type Department Care Team (Late st Contact Info) Description 04/13/2024 3:00 PM EST Telephone Radiation Oncology at [address] [phone] St [facility] 04/20/2024 8:30 AM EDT Scheduled View Only Radiation Oncology at [address] [address] Rad Nurse, [facility] 04/20/2024 9:00 AM EDT Procedure visit Radiation Oncology at [address] [phone] David Barker MD [address] [place] [address] [place] [address] 04/20/2024 9:00 AM EDT Scheduled View Only Radiation Oncology at [address] [phone] 04/22/2024 3:30 PM EDT Infusion Hematology Oncology at [address] [phone] 04/25/2024 10:10 AM EDT [place] [phone] David Barker MD [address] [place] [address] [place] [address] 04/25/2024 11:30 AM EDT Scheduled View Only [place] [address] 04/25/2024 12:00 PM EDT Ancillary Appointment [place] [address] David Barker MD [address] [place] [address] [place] [address] 04/25/2024 12:00 PM EDT Scheduled View Only [place] [phone] documented as of this encounter Visit Diagnoses Not on filedocumented in this encounter Care Teams Metal Drilling Machine Operator Relationship Specialty Start Date End Date Georgette Mercedes APRN [address] [place] [address] PCP - General Internal Medicine 10/23/23 02/15/24 documented as of this encounter
--- OUTSIDE RECORDS SUMMARY | 2024-02-16 16:33 | XMS_ITS | Encounter Summary ---
Author Organization [facility] [place] [address] Care Team Providers Care Trash Truck Driver Name Role Phone Adonisearl Jarret Nino Primary Care Provider [phone] Encounter Details Date Type Department Care Team (Late st Contact Info) Description 02/16/2024 1:30 PM EST Office Visit Hematology/Oncology at [address] [phone] Agusto Duarte MD [facility] [address] [place] [address] Dawn Lehman APRN [facility] [place] [address] Malignant neoplasm of prostate; Androgen deprivation therapy; Prostate cancer metastatic to intrapelvic lymph node Social History Tobacco Use Types Packs/Day Years [...] Sign Reading Time Taken Comments Blood Pressure 171/98 02/16/2024 1:49 PM EST Pulse 78 02/16/2024 1:49 PM EST Temperature 36.4 ??C (97.5 ??F) 02/16/2024 1:49 PM ES T Respiratory Rate 16 02/16/2024 1:49 PM EST Oxygen Saturation 100% 02/16/2024 1:49 PM EST Inhaled Oxygen Concentration - - Weight 92.5 kg (204 lb) 02/16/2024 1:49 PM EST Height 185.4 cm (6' 0.99) 02/16/2024 1:49 PM ES T Body Mass Index 26.92 02/16/2024 1:49 PM EST documented in this encounter Progress Notes * Sierra Santana RN - 02/16/2024 1:[address] New Patient Medical Oncology Note SOCIAL ASSESSMENT: See [facility] social assessment information entered. 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 [ ] yes [ ] no Local Pharmacy: [facility] FUNCTIONAL SCREENING: Balance difficulty: [ x ]no [ ]yes At risk for fall: [ x] no [ ] yes If yes, actions implemented to prevent fall. Patient/family instructed to avoid independent ambulation. Use wheelchair and ask for assistance of staff while in the clinic. 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 referred by Dr. Barker for consultation on prostate cancer. He initially presented with elevated PSA Collected from Dr. Barker notes Presenting Symptoms / Duration: ePSA Prior consultations / recommendations: Dr Chiu - 11/12/23 biopsy visit - Rectal exam: prostate is smooth, no nodules, approx 40g. Dr Chiu - 11/20/23 phone call - rec PSMA/PET and rad/onc consult PSA History: 11/2022 18.8 05/2023 28.3 Pertinent Imaging Studies: mpMRI 10/13/23 39cc gland P5 right mid gland PZ P4 left anterior apex P3 left base TZ Gr2 JUWAN No SVI / LAD PSMA PET/CT 12/28/23 - 1. PSMA positive prostatic malignancy. 2. Small armando metastases in the left external iliac, presacral, and bilateral mesorectal regions. Started degarelix on January 01, 2024. Interval history:Usman Carver is in clinic for follow-up appointment on prostate cancer and abiraterone/prednisone toxicity check. He started abiraterone on February 07. Tolerates it well. Denies any new pain. Hot flashes are mild PMH: Hypertension Past Medical History: Diagnosis Date Hypertension Patient Active Problem List Diagnosis Malignant neoplasm of prostate Social History: No changes Family History: No changes OBGYN History: Allergies: Reviewed Medications: Reviewed Review of Systems: Constitutional: Negative for fever, chills, activity change, fatigue and unexpected weight change. HEENT: Negative for sore throat, mouth sores and trouble swallowing. Eyes: Negative. Respiratory: Negative for cough, shortness of breath and wheezing. Cardiovascular: Negative for chest pain, palpitations and leg swelling. Gastrointestinal: Negative for nausea, vomiting, abdominal pain, diarrhea, constipation and abdominal distention. Genitourinary: Negative for dysuria and difficulty urinating. Musculoskeletal: Negative. Skin: Negative. Neurological: Negative. Hematological: Negative for adenopathy. PE: Constitutional: NAD HENT: Head: NCAT Eyes: Non-injected, anicteric. Neck: Normal ROM, supple. Cardiovascular: RRR, no murmur. Resp: Effort normal. No respiratory distress. Wheezes bilat lobes, no rales or rhonchi. Lymph: No palpable lymph nodes in cervical, supraclavicular, axillary areas. Abdominal: Soft, NT, ND, BS+ : no CVA tenderness. Skin: Skin is warm and dry. No rash or lesions noted on limited exam. No pallor. Musculoskeletal: No spinal tenderness. Normal range of motion, ambulatory. Extremities: No distal edema noted. Neurological: Alert & oriented, no focal deficits. Psych: Conversant, normal mood and affect. BP (!) 171/98 (Patient Position: Sitting) Pulse 78 Temp 36.4 ??C (97.5 ??F) (Temporal) Resp 16 Ht 185.4 cm (6' 0.99) Wt 92.5 kg (204 lb) SpO2 100% BMI 26.92 kg/m?? Pathology: 11/12/23 Prostatic adenocarcinoma, Grade Group 5 (Mio score 4+5=9), with cribriform features, involving 80% of a single core. - [place] pattern 5 represents 10% of tumor. Labs: 02/16/2024 sodium 142, potassium 4.3, BUN 15, creatinine 0.9, calcium 9.8, TB 0.39, AST 23, ALT 39, alkaline phosphatase 99, total protein 8.1, albumin 3.8. WBC 5.83, hemoglobin 14, platelet count 283, ANC 4.32. PSA testosteron 02/16/24 pending 06/16/23 28.3 PSA History: 11/2022 18.8 05/2023 28.3 Imagin12/28/23 PSMA PET scan IMPRESSION 1. PSMA positive prostatic malignancy. 2. Small armando metastases in the left external iliac, presacral, and bilateral mesorectal regions as detailed above. 3. CT visualized sub-6 mm right lower lobe pulmonary nodule. If priors are available, comparison could be made for stability. Otherwise, consider follow-up with low-dose non-contrast CT chest in 6 months. Assessment and Plan: Diagnosis: Stage SHELBI , cT1c, cN1, cM0, PSA: 28, Treatment: -01/01/24 started degarelix 240 mg -01/29/2024 Lupron 22.5 mg -02/08/24 started abiraterone 1000 mg of prednisone 5 mg a day Usman Carver is 68 y.o. gentleman with minimal comorbidities and new diagnosis of very high riskprostate cancer with local lymph nodes metastases. He already was seen by radiation oncologist Dr. Barker and started on ADT. He tolerated first injection well. We discussed other options including treatment with abiraterone and prednisone along with ADT for total of 2-3 years based on data from clinical phase 3 STAMPEDE trial, with aging abiraterone to radiation ADT demonstrated improvement in overall survival. We discussed side effects of Abirateron including fatigue, joint swelling or discomfort, edema, hotflush, diarrhea, vomiting, cough, hypertension, dyspnea, urinary tract infection, and contusion. The most common laboratory abnormalities included anemia, elevated alkaline phosphatase, hypertriglyceridemia, lymphopenia, hypercholesterolemia, hyperglycemia, elevated aspartate aminotransferase , hypophosphatemia, elevated alanine aminotransferase and hypokalemia. Grade 3-4 increases in ALT or AST occurred in 4 percent of patients treated with abiraterone acetate. Grade 3-4 cardiac failure occurred more commonly in patients treated with abiraterone acetate compared with those receiving placebo (1.6 percent vs. 0.2 percent). Adrenal insufficiency occurred in 0.5 percent of patients taking abiraterone acetate and in 0.2 percent of those receiving placebo All questions were answered to patient's satisfaction. He is interested to proceed with abirateroneand prednisone. Informed verbal consent was obtained. He would like to see us at [facility]. Will make arrangements. He will continue to follow with Dr. Barker for radiation therapy and ADT 02/16/24 Usman started abiraterone and prednisone on February 07. Tolerated that well. Labs reviewed. PSA is pending. Will continue current regimen Repeat CMP in 2 weeks. Next visit with blood work in 6 weeks Plan: Continue abiraterone 1000 mg and prednisone 5 mg a day, continue Lupron 22.5 mg every 12 weeks Check CMP in 2 weeks Next visit with CBC, CMP, PSA, testosterone 6 weeks F/u with Dr. Barker The plan was discussed with the patient in details. All questions were answered to patient's satisfaction. I would like to thank Dr. Barker for allowing me participate in the care of this wonderful gentleman documented in this encounter Plan of Treatment Upcoming Encounters Date Type Department Care Team (Late st Contact Info) Description 04/13/2024 3:00 PM EST Telephone Radiation Oncology at [address] [phone] Rad Nurse [facility] 04/20/2024 8:30 AM EDT Scheduled View Only Radiation Oncology at [address] [phone] Rad Nurse, [facility] 04/20/2024 9:00 AM EDT Procedure visit Radiation Oncology at [address] [phone] David Barker MD [address] [place] [address] [place] [address] 04/20/2024 9:00 AM EDT Scheduled View Only Radiation Oncology at [address] [phone] 04/22/2024 3:30 PM EDT Infusion Hematology Oncology at [address] [phone] 04/25/2024 10:10 AM EDT [place] [phone] David Barker MD [address] [place] [address] [place] [address] 04/25/2024 11:30 AM EDT Scheduled View Only [place] [phone] 04/25/2024 12:00 PM EDT Ancillary Appointment [place] [phone] David Barker MD [address] [place] [address] [place] [address] 04/25/2024 12:00 PM EDT Scheduled View [place] [phone] documented as of this encounter Goals Goal Patient Goal Type Associated Problems Recent Progress Patient-Stated? Author Patient's specific desired goal: Patient Facing Action Plan Misael Alegria, [facility] Note: Goal(s): 95%+ adherence to abiraterone / prednisone regimen Measured by: MPR or similar adherence monitoring Time-frame: assessed annually by pharmacy documented as of this encounter Visit Diagnoses Diagnosis Malignant neoplasm of prostate Androgen deprivation therapy Encounter for therapeutic drug monitoring Prostate cancer metastatic to intrapelvic lymph node documented in this encounter Care Teams Trash Truck Driver Relationship Specialty Start Date End Date Jarret Patton DO [address] [place] [address] PCP - General Family Medicine 02/16/24 documented as of this encounter
--- OUTSIDE RECORDS SUMMARY | 2024-02-16 16:33 | XMS_ITS | Encounter Summary ---
[facility] [place] [address] Care Team Providers Care Diabetes Territory Manager Name Role Phone Mago Georgette Thor GRANT Primary Care Provider [phone] Encounter Details Date Type Department Care Team (Latest Contact Info) Description 01/01/2024 Travel Social History Tobacco Use Types Packs/Day [...] 3:00 PM EST Telephone Radiation Oncology at [address] [phone] Jose Ferraro, [facility] 04/20/2024 8:30 AM EDT Scheduled View Only Radiation Oncology at [address] [phone] Jose Nurse [facility] 04/20/2024 9:00 AM EDT Procedure visit Radiation Oncology at [address] [phone] David Barker MD [address] [place] [address] [place] [address] 04/20/2024 9:00 AM EDT Scheduled View Only Radiation Oncology at [address] [phone] 04/22/2024 3:30 PM EDT Infusion Hematology Oncology at [address] [phone] 04/25/2024 10:10 AM [place] [address] David Barker MD [address] [place] [address] [place] [address] 04/25/2024 11:30 AM EDT Scheduled View [place] [address] 04/25/2024 12:00 PM EDT Ancillary Appointment [place] [address] David Barker MD [address] [place] [address] [place] [address] 04/25/2024 12:00 PM EDT Scheduled View Only [place] [address] documented as of this encounter Visit Diagnoses Not on filedocumented in this encounter Care Teams Diabetes Territory Manager Relationship Specialty Start Date End Date Georgette Mercedes APRN [address] [place] [address] PCP - General Internal Medicine 10/23/23 02/15/24 documented as of this encounter
--- OUTSIDE RECORDS SUMMARY | 2024-02-16 16:33 | XMS_ITS | Encounter Summary ---
Author Organization [facility] Address [facility] [place] [address] Care Team Providers Care Electric Accounting Machine Operator Name Role Phone Georgette Mercedes APRN Primary Care Provider [phone] Reason for Visit * Reason Comments Chemotherapy * Treatment/Therapy Plan Authorization (Routine) - Closed Specialty Diagnoses / Procedures Referred By Yaneli sepulveda Referred To Contact Hematology and Oncology Diagnoses Malignant neoplasm of prostate Procedures TC LEUPROLIDE ACETATE 7.5MG, FOR DEPOST SUSPENSION (LUPRON DEPOT) David Barker MD [address] [place] [address] [place] [address] [facility] [address] [place] [phone] Referral ID Status Reason Start Date Expiration Date Visits Re quested Visits Authorized [id number] Closed 12/24/2023 12/23/2024 99 99 Encounter Details Date Type Department Care Team (Late st Contact Info) Description 01/29/2024 3:30 PM EST Infusion Hematology Oncology at [address] [phone] Malignant neoplasm of prostate Social History Tobacco [...] Sign Reading Time Taken Comments Blood Pressure 156/76 01/29/2024 3:20 PM EST Pulse 87 01/29/2024 3:20 PM EST Temperature 36.8 ??C (98.2 ??F) 01/29/2024 3:20 PM ES T Respiratory Rate 18 01/29/2024 3:20 PM EST Oxygen Saturation 96% 01/29/2024 3:20 PM EST Inhaled Oxygen Concentration - - Weight 90.5 kg (199 lb 9.6 oz) 01/29/2024 3:20 P M EST Height 185.4 cm (6' 1) 01/29/2024 3:20 PM EST Body Mass Index 26.33 01/29/2024 3:20 PM EST documented in this encounter Progress Notes * Henri Greene, RN - 01/29/2024 3:30 PM EST Infusion Note Diagnosis:Prostate Cancer Treatment: Lupron Injection Lupron 22.5 mg injected in RIGHT gluteal Patient instructed on side effects of Lupron. Patient states understanding of teaching, Patient aware to call clinic with any questions or concerns. Plan: Return to clinic as scheduled. documented in this encounter Plan of Treatment Upcoming Encounters Date Type Department Care Team (Late st Contact Info) Description 04/13/2024 3:00 PM EST Telephone Radiation Oncology at [address] [phone] Jose Nurse, [facility] 04/20/2024 8:30 AM EDT Scheduled View Only Radiation Oncology at [address] [phone] Jose Nurse [facility] 04/20/2024 9:00 AM EDT Procedure visit Radiation Oncology at [address] [phone] David Barker MD [address] [place] [address] [place] [address] 04/20/2024 9:00 AM EDT Scheduled View Only Radiation Oncology at [address] [phone] 04/22/2024 3:30 PM EDT Infusion Hematology Oncology at [address] [phone] 04/25/2024 10:10 AM [place] [address] David Barker MD [address] [place] [address] [place] [address] 04/25/2024 11:30 AM EDT Scheduled View [place] [address] 04/25/2024 12:00 PM EDT Ancillary Appointment [place] [address] David Barker MD [address] [place] [address] DR RADIATION ONCOLOGY [place], [place] [address] 04/25/2024 12:00 PM EDT Scheduled View [place] [address] documented as of this encounter Visit Diagnoses Diagnosis Malignant neoplasm of prostate documented in this encounter Administered Medications Inactive Administered Medications - up to 3 most recent administrations Medication Order MAR Action Action Date Dose Rate Site leuprolide (Lupron Depot) 22.5 mg (3 month) intramuscular syringe kit 22.5 mg 22.5 mg, Intramuscular, ONCE, 1 dose, On Thu01/29/24 at 1545, Routine, This agent is restricted to outpatient use. Is this drug being given as an outpatient? Yes Given 01/29/2024 3:38 PM EST 22.5 mg Right Gluteal documented in this encounter Care Teams Electric Accounting Machine Operator Relationship Specialty Start Date End Date Georgette Mercedes APRN [address] [place] [address] PCP - General Internal Medicine 10/23/23 02/15/24 documented as of this encounter
--- OUTSIDE RECORDS SUMMARY | 2024-02-16 16:33 | XMS_ITS | Encounter Summary ---
Author Organization [facility] [place] [address] Care Team Providers Care Horticultural Technical Officer Name Role Phone Mago Georgette Thor GRANT Primary Care Provider Encounter Details Date Type Department Care Team (Latest Contact Info) Description 01/29/2024 Travel Social History Tobacco Use Types Packs/Day [...] 3:00 PM EST Telephone Radiation Oncology at [address] [phone] Jose Ferraro, [facility] 04/20/2024 8:30 AM EDT Scheduled View Only Radiation Oncology at [address] [phone] Jose Nurse [facility] 04/20/2024 9:00 AM EDT Procedure visit Radiation Oncology at [address] [phone] David Barker MD [address] [place] [address] [place] [address] 04/20/2024 9:00 AM EDT Scheduled View Only Radiation Oncology at [address] [phone] 04/22/2024 3:30 PM EDT Infusion Hematology Oncology at [address] [phone] 04/25/2024 10:10 AM [place] [address] David Barker MD [address] [place] [address] [place] [address] 04/25/2024 11:30 AM EDT Scheduled View [place] [address] 04/25/2024 12:00 PM EDT Ancillary Appointment [place] [address] David Barker MD [address] [place] [address] [place] [address] 04/25/2024 12:00 PM EDT Scheduled View Only [place] [address] documented as of this encounter Visit Diagnoses Not on filedocumented in this encounter Care Teams Horticultural Technical Officer Relationship Specialty Start Date End Date Georgette Mercedes APRN [address] [place] [address] PCP - General Internal Medicine 10/23/23 02/15/24 documented as of this encounter
--- OUTSIDE RECORDS SUMMARY | 2024-02-16 16:33 | XMS_ITS | Encounter Summary ---
Author Organization [facility] [address] Care Team Providers Care Hot Packer Name Role Phone Georgette Mercedes JUANITA Primary Care Provider [phone] Encounter Details Date Type Department Care Team (Late st Contact Info) Description 01/14/2024 Specialty [place] [address] Dalton Boyer CPHT Benefits Investigation for HemOnc Social History Tobacco Use Types [...] as of this encounter Progress Notes * Dalton Boyer CPHT - 01/14/2024 8:03 AM EST [facility] Benefits Investigation The [facility] has completed a benefits investigation for Usman Carver to review their eligibility to fill at [facility]. 01/14/2024 8:04 AM Benefits Investigation Medication Abiraterone Acetate Prescription Status New Dispense Quantity 60 Dispense Units tablet Day Supply 30 Insurance Status Uninsured Can patient fill with [facility]? Yes Anticipated Pharmacy Cost Plus Drugs Is this a conversion opportunity? No Expected Copay Unknown BI Notes PT has no insurance - PT would like to fill with [facility] - Wants to fill Abiraterone 250mg tablets for affordability Result of Benefits Investigation: No further work-up is required at this time Expected Copay Unknown Referral for copay assistance will be completed No For any questions relating to this Benefits Investigation please reach out directly to your section's specialty pharmacist, or the specialty pharmacy team at [facility] Thank you, Dalton Boyer CPHT 01/14/24 8:05 AM documented in this encounter Plan of Treatment Upcoming Encounters Date Type Department Care Team (Late st Contact Info) Description 04/13/2024 3:00 PM EST Telephone Radiation Oncology at [address] [phone] Rad Nurse, [facility] 04/20/2024 8:30 AM EDT Scheduled View Only Radiation Oncology at [address] [phone] Rad Nurse, [facility] 04/20/2024 9:00 AM EDT Procedure visit Radiation Oncology at [address] [phone] David Barker MD [address] [place] [address] DR RADIATION ONCOLOGY [place] [id number] 04/20/2024 9:00 AM EDT Scheduled View Only Radiation Oncology at [address] [phone] 04/22/2024 3:30 PM EDT Infusion Hematology Oncology at [address] [phone] 04/25/2024 10:10 AM EDT [place] [address] David Barker MD [address] [place] [address] [place] [address] 04/25/2024 11:30 AM EDT Scheduled View Only [place] [phone] 04/25/2024 12:00 PM EDT Ancillary Appointment [place] [address] David Barker MD [address] [place] [address] DR RADIATION ONCOLOGY [place] [phone] 04/25/2024 12:00 PM EDT Scheduled View Only [place] [phone] documented as of this encounter Goals Goal Patient Goal Type Associated Problems Recent Progress Patient-Stated? Author Patient's specific desired goal: Patient Facing Action Plan No Misael Weiss, [facility] Note: Goal(s): 95%+ adherence to abiraterone / prednisone regimen Measured by: MPR or similar adherence monitoring Time-frame: assessed annually by pharmacy documented as of this encounter Visit Diagnoses Not on filedocumented in this encounter Care Teams Hot Packer Relationship Specialty Start Date End Date Georgette Mercedes APRN [address] [place] [address] PCP - General Internal Medicine 10/23/23 02/15/24 documented as of this encounter
--- OUTSIDE RECORDS SUMMARY | 2024-02-16 16:33 | XMS_ITS | Clinical Summary ---
Author Organization [facility] [place] [address] Care Team Providers Care Brake Lining Driller Name Role Phone Jarret Patton Primary Care Provider [phone] Allergies No known active allergies Medications Medication Sig Dispensed Refills Start Date End Date Status amLODIPine (Norvasc) 5 mg tablet Take 5 mg by mouth daily. 10/02/2023 Active lisinopriL (Zestril) 40 mg tablet Take 40 mg by mouth daily. 10/02/2023 Active predniSONE (Deltasone) 5 mg tablet Take 1 tablet by mouth daily. 30 tablet 11 01/13/2024 Active abiraterone (Zytiga) 250 mg tabletIndications:m etastatic castration-sensitiv e prostate cancer Take 4 tablets (1,000 mg) by mouth daily. Take medication on empty stomach at least 1 hour before or 2 hours after meals. Call clinic before starting medication. Indications: metastatic castration-sensiti ve prostate cancer 120 tablet 11 02/01/2024 Active Active Problems Problem Noted Date Diagnosed Date Malignant neoplasm of prostate 12/23/2023 Cancer Staging:Clinical:Stage IIIC(cT1c, cN0, cM0, PSA: 28, Grade Group: 5) - Signed by David Barker MD on 12/23/2023 Encounters Date Type Department Care Team Description 02/16/2024 1:30 PM EST Office Visit Hematology/Oncolog y at [address] [phone] Agusto Duarte MD Burns, Kimberly A, APRN Malignant neoplasm of prostate; Androgen deprivation therapy; Prostate cancer metastatic to intrapelvic lymph node 02/16/2024 Travel 02/08/2024 Telephone Hematology [place] [address] Funmi Tobar RN Chemotherapy Teaching 02/06/2024 Telephone Hematology [place] [address] Sid Mix MD 02/06/2024 Specialty [place] [address] Sangeetha Abernathy [facility] 02/05/2024 Telephone Hematology and Oncology at [place] [phone] Katelin Cruz RN 02/02/2024 Specialty [place] [address] Misael Weiss, [facility] Initial Clinical Assessment/Patient Education (abiraterone acetate) for HemOnc 02/01/2024 Refill Hematology and Oncology at [place] [phone] Funmi Tobar RN 01/29/2024 3:30 PM EST Infusion Hematology Oncology at [address] [phone] Malignant neoplasm of prostate 01/29/2024 Telephone Hematology and Oncology at [place] [phone] Funmi Tobar RN Chemotherapy Teaching 01/29/2024 Travel 01/14/2024 Orders Only Hematology and Oncology at [place] [phone] Tg Burrows, HOME HEALTH CARE RESPIRATORY THERAPIST 01/14/2024 Specialty [place] [address] Dalton Boyer, SOCK [employer] Benefits Investigation for HemOnc 01/13/2024 2:30 PM EST Office Visit Hematology [place] [address] Agusto Duarte MD 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); Malignant neoplasm of prostate; Androgen deprivation therapy 01/13/2024 Travel 01/01/2024 9:00 AM EST Infusion Hematology Oncology at [address] [phone] Malignant neoplasm of prostate 01/01/2024 8:30 AM EST Office Visit Radiation Oncology at [address] [phone] David Barker MD Malignant neoplasm of prostate 01/01/2024 Travel 12/28/2023 6:02 AM EST - 12/28/2023 11:59 PM EST Hospital Encounter [place] [address] Mingo Chiu MD Discharge Disposition: Home 12/28/2023 6:02 AM EST - 12/28/2023 11:59 PM EST Hospital Encounter [place] [address] Mingo Chiu MD Malignant neoplasm of prostate Discharge Disposition: Home 12/28/2023 Travel 12/24/2023 2:00 PM EST Office Visit Radiation Oncology at [address] [phone] David Barker MD Malignant neoplasm of prostate 12/24/2023 Travel 12/01/2023 Telephone Radiation Oncology at [address] [phone] Renee Cerda 11/24/2023 Telephone Radiation Oncology at [address] [phone] Renee Cerda 11/20/2023 [place] [address] Mingo Chiu MD from Last 3 Months Family History Medical History Relation Comments Lymphoma Father Lung Cancer Paternal Uncle Lung Cancer Sister Relation Status Comments Father Paternal Uncle Sister Alive Social History Tobacco Use Types Packs/Day Years Used Date Smoking Tobacco: Never Smokeless Tobacco: Never Tobacco Cessation:Counseling Given: Not Answered Alcohol Use Standard Drinks/Week Comments Yes 1 (1 standard drink = 0.6 oz pur e alcohol) Sex and Gender Information Value Date Recorded Sex Assigned at Not on file Gender Identity Not on file Sexual Orientation Not on file Last Filed Vital Signs Vital Sign Reading [...] Mass Index 26.92 02/16/2024 1:49 PM EST Plan of Treatment Upcoming Encounters Date Type Department Care Team (Late st Contact Info) Description 04/13/2024 3:00 PM EST Telephone Radiation Oncology at [address] [phone] [facility] Nurse [facility] 04/20/2024 8:30 AM EDT Scheduled View Only Radiation Oncology at [address] [phone] Jose Nurse [facility] 04/20/2024 9:00 AM EDT Procedure visit Radiation Oncology at [address] [phone] David Barker MD [address] [place] [address] [place] [address] 04/20/2024 9:00 AM EDT Scheduled View Only Radiation Oncology at [address] [phone] 04/22/2024 3:30 PM EDT Infusion Hematology Oncology at [address] [phone] 04/25/2024 10:10 AM [place] [address] David Barker MD [address] [place] [address] DR RADIATION ONCOLOGY [place], [place] [id number] 04/25/2024 11:30 AM EDT Scheduled View Only [place] [phone] 04/25/2024 12:00 PM EDT Ancillary Appointment [place] [address] David Barker MD [address] [place] [address] DR RADIATION ONCOLOGY [place], [place] [id number] 04/25/2024 12:00 PM EDT Scheduled View [place] [phone] Health Maintenance Due Date Last Done Comments CT Colonography 1955 Colonoscopy 1955 Colorectal Cancer Screening 1955 FIT DNA 1955 FIT 1955 Sigmoidoscopy (10 year) with FIT yearly 1955 Sigmoidoscopy 1955 Hepatitis C Screening 12/11/1971 Lipid Screening 12/11/1971 Tetanus/Diphtheria/Pertussis Vaccines (1 - Tdap) 12/10 Diabetes Screening (HgbA1C or Glucose) 1993 Pneumoccocal Vaccine: 65+ (1 of 1 - PCV) 12/11/2003 Zoster vaccine (1 of 2) 12/11/2003 Advance Directive 2008 Covid-19 Vaccine ( - 2023- season) 2023 Influenza (Flu) vaccine (1 o f 1 - Influenza standard series) 10/11/2023 Goals Goal Patient Goal Type Associated Problems Recent Progress Patient-Stated? Author Patient's specific desired goal: Patient Facing Action Plan Misael Alegria, [facility] Note: Goal(s): 95%+ adherence to abiraterone / prednisone regimen Measured by: MPR or similar adherence monitoring Time-frame: assessed annually by pharmacy Procedures Procedure Name Priority Date/Time Associated Diagnosis Comments NM PET CT PSMA PROSTATE (ILLUCCIX) Routine 12/28/2023 8:14 AM EST Malignant neoplasm of prostate from Last 3 Months Results * NM PET CT PSMA Prostate (Illuccix) (12/28/2023 8:14 AM EST) WORKSTATION ID [id number] RAD Anatomical Region Laterality Modality Positron Emissio n [...] Thank you for referring this patient to [facility]. I have personally reviewed the [...] who have questions please contact the health childcare administrator that requested your imaging first. ? Narrative 12/30/2023 11:47 AM EST EXAMINATION: NM [...] nodule in the posterior right lower lobe ([id number]). No adenopathy. Aortic calcifications. ABDOMEN/PELVIS: Heterogeneous tracer [...] Thank you for referring this patient to [facility]. I have personally reviewed the image(s) and the resident's interpretationand agree with the findings, Jose Mehta MD at 12/30/2023 11:47 AM Thank you for letting us participate in the care of this patient. If youare a health care provider and have any questions regarding this report,please contact the number below. For patients who have questions please contactthe health childcare administrator that requested your imaging first. Mingo Chiu MD IMG PET ORDERABLES from Last 3 Months Care Teams Brake Lining Driller Relationship Specialty Start Date End Date Jarret Patton DO [address] [place] [address] PCP - General Family Medicine 02/16/24
--- OUTSIDE RECORDS SUMMARY | 2024-02-16 16:33 | XMS_ITS | Encounter Summary ---
Author Organization [facility] Address [facility] [place] [address] Care Team Providers Care Efficiency Clerk Name Role Phone Georgette Mercedes JUANITA Primary Care Provider Reason for Referral * Consultation (Routine) - Closed Specialty Diagnoses / Procedures Referred By Yaneli sepulveda Referred To Contact Hematology and Oncology Diagnoses Malignant neoplasm of prostate David Barker MD [address] [place] [address] [place] [address] [facility] Hem Onc Office [address] [place] [phone] Referral ID Status Reason Start Date Expiration Date V isits Requested Visits Authorized [id number] Closed Consult, Test & Treat 12/24/2023 12/23/2024 1 1 Reason for Visit * Consultation (Urgent) - Closed Specialty Diagnoses / Procedures Referred By Yaneli sepulveda Referred To Contact Radiation Oncology Diagnoses Malignant neoplasm of prostate Mingo Chiu MD [facility] [place] [address] St Rad Onc Office [address] [place] [phone] Referral ID Status Reason Start Date Expiration Date V isits Requested Visits Authorized [id number] Closed Consult, Test & Treat 11/20/2023 11/19/2024 1 1 Encounter Details Date Type Department Care Team (Late st Contact Info) Description 12/24/2023 2:00 PM EST Office Visit Radiation Oncology at [address] [phone] David Barker MD [address] [place] [address] [place] [address] Malignant neoplasm of prostate Social History Tobacco [...] Sign Reading Time Taken Comments Blood Pressure 172/98 12/24/2023 1:47 PM EST Pulse 59 12/24/2023 1:47 PM EST Temperature 37.2 ??C (99 ??F) 12/24/2023 1:47 PM EST Respiratory Rate 16 12/24/2023 1:47 PM EST Oxygen Saturation 100% 12/24/2023 1:47 PM EST Inhaled Oxygen Concentration - - Weight 91 kg (200 lb 9.6 oz) 12/24/2023 1:47 PM EST Height - - Body Mass Index 26.47 11/12/2023 10:08 AM EDT documented in this encounter Patient Instructions * Patient Instructions* David Barker MD - 12/24/2023 2:00 PM EST Images from the original note were not included. Dear Mr. Carver, Dr. Chiu asked for me to see you to discuss how radiation therapy can be used to treat your prostate cancer and this note is to recap our discussion regarding use of radiation treatments. As your radiation oncologist, I work closely with your other healthcare providers and most importantly, with you to make sure that the treatments we discuss and offer keep your personal preferences and goals in mind. We discussed the following next steps as part of your cancer evaluation and/or treatment: 1. The aggressiveness of your prostate cancer: You technically have very high risk prostate cancer, which is a risk given to your cancer of coming back after treatment. This is based on two things: 1. Your PSA (the blood test) was 28. PSA values below 10 are considered low risk and 10-20 are considered medium risk and above 20 are considered high risk. 2. Your highest [employer] score was 5 (this is how aggressive your prostate cancer looks under the microscope). Suffolk scores for cancer range from 1-5, and 1 is considered lowest risk, while 5 is highest risk. The scans you have had so far do not show any cancer outside of the prostate. Your PET scan next week is looking to make sure there is no cancer anywhere else. 2. Radiation Treatment Options: There are a few ways radiation can be given here in [place]. Either: 5.5 weeks of daily radiation (M-F) with external beam radiation alone (moderately hypofractionated RT) 5 days of radiation total It is important to know that for higher risk prostate cancer such as yours the effectiveness of shorter courses of radiation are not as well studied and may have higher, possibly severe urinary or bowel side effects that requires surgery to repair. Another option is a radioactive seed implant, possibly in addition to a 5 week course of standard pelvic radiation to treat the nearby lymph nodes. If you'd like to consider this option, I can refer you to Dr. Korey Larsen at the [facility], who does these implants routinely. 3. Fiducial marker implants: If you decide to choose external beam radiation by itself, the first step will be for you to return to our clinic so that we can place small gold markers (called fiducials) into the prostate, which help us visualize the prostate on a daily basis prior to treating you with radiation. These small gold seeds are about the size of a grain of rice, and we will place one into each side of the prostate. These procedures will be performed here in our clinic, and our nursingteam will provide you instructions with how to prepare yourself. It takes approximately 2 hours from when you arrive to when you leave the building. 4. Radiation Therapy and Planning: Radiation therapy involves using high energy radiation which kills cancer but also normal healthy tissues. In order to make sure the radiation goes to the canceroustissues and to also avoid radiating the normal tissues, we design radiation beams beams into special shapes which come from various different directions. Because no two people and no two cancers are completely identical, the radiation plan we create for you will be unique to you and your body. In order to figure out how many beams to use, how much radiation to give, which angles they should come from, and how they should be shaped, we have asked you to undergo 2 mapping scans: one is done here in our department known as a CT simulation, or CT sim, for short. This is essentially a CAT-scan similar to scans which you may have received before, but slightly different in a few ways: First, it allows us to place you in the exact same position which you should expect to be placed during each of your radiation treatment sessions. Second, it lets us better understand where the radiation targets and the normal tissues that we want to avoid exist, in relation to each other and the radiation beams. The second scan is a prostate MRI which will show us the position of the markers and improve our ability to see your prostate. Following these scans, we then perform additional calculations and measurements to create the absolute best plan possible for you. Depending on the complexity of the plan, these processes can take from just few hours to several days, and for that we ask for your patience. If you have any questions about the planning process or your custom radiation plan, I would be more than happy to review the plan with you during your first week of treatment. During your radiation treatments, you can expect to see me once per week so that I can examine you to make sure you are tolerating radiation treatments and so that we can monitor your response to treatment. 5. SIDE EFFECTS - Short Term: We discussed some common temporary side effects that you may experience during radiation. Common side effects may include irritative symptoms of the bladder or prostate,which can result in more frequent urination or defecation. Other common side effects mahy include weakened urinary stream or burning with urination. If you experience any of these, please let us knowso that we can help to treat them. These typically resolve within 4-6 weeks of completion radiation. 6. SIDE EFFECTS - Care Home: These can include be permanent damage of the radiated tissues, including the rectum/bowel, bladder, prostate and surrounding tissues. Potential serious injury is rare, but can include poor wound healing, bleeding, or destruction of healthy tissue that may require surgery to repair and may result in a colostomy (bag for defecation) or urostomy (bag for urination). There may be a slow, long term care social worker decrease in your sexual function as well, which is partly due to the aging process but also partly due to radiation side effects. This is typically responsive to medicationslike Viagra. Finally, there is a risk that radiation to your prostate increases the chance of getting another cancer caused by radiation, possibly of the prostate, bladder, rectum or surrounding tissues. This risk is overall quite low (approximately 1% above your normal risk for each 10 years you are alive), but is something to be aware of. 7. Hormone therapy: For high risk prostate cancers such as yours, I recommend a course of anti-testosterone therapy for at least 24 months (typically starting 2 months before radiation, contiuing for2 months during radiation and ongoing after radiation is completed). This is usually given as a shot that lasts for 3 months at a time. The reason we recommend this is that the male hormone testosterone is used by prostate cancer as a fuel. By decreasing the body's production of testosterone, we can 'starve' the prostate cancer. The main side effects of hormone therapy include hot flashes, night sweats, weight gain, depressed mood, loss of sexual interest and impotence. There is also a very low risk of heart attack among men who have recently had a heart attack. These side effects usually reverse within 3-6 months of stopping the hormone therapy when testosterone recovers, although it can take up to a full year. I also recommend you meet with our medical oncologists to discuss possible additional hormonal therpay given how advanced your prostate cancer seems to be. 8. Clinical Trials: you may be eligible for 2 clinical trials here at [facility] Trial #1 is titled NRG--013 / High Five is testing whether a shorter course of radiation (5 treatments, every other day) is as effective as our standard longer course of 28 treatments (5.5 weeks). If you sign up for this trial, there is a coin flip which will decide whether you get the shorter orlonger course of radiation. Trial #2 is titled NRG--009 / PREDICT-RT which tests the genetics of your previous biopsy sample to see if we should adjust hormone treatments described above. If your cancer does not have aggressive genetics, then there is a coin flip to assign you to either 1 year vs the standard 2 years of hormone therapy. If on the other hand your biopsy sample does have aggressive genetics, then there is adifferent coin flip that assigns you to either the standard 2 years of hormone therapy, or the samehormone therapy PLUS a newer oral (pill) medication called Apalutamide (the trademark name is Erleada), that you would also for 2 years. To go on these trial, you would need to have no evidence of cancer outside your prostate on the PETscan, and some labwork. You are able to go on either one, or both trials - it is up to you! Please do not hesitate to call me at [phone] with any other questions or concerns you have. IfI am not here, one of our radiation oncology nurses can assist you or help you get in touch with me. A Radiation Oncology doctor is also sanitation laborer after our normal hours and on weekends for urgent questions or concerns related to radiation treatments that can not wait until normal business hours. To reach the on-call doctor after-hours, just call and have the carding machine operator page the Radiation Oncologist sanitation laborer. And, as always, if you experience any life-threatening emergencies which any include the following,you need to seek emergency care immediately by calling 911: 1. Sudden and unexpected breathing difficulty without any exertion 2. Sudden onset of chest pain 3. Sudden onset of severe pain or uncontrolled pain 4. Sudden onset of severe weakness and/or unable to walk 5. Sudden new onset of a seizure 6. Fall resulting in injury 7. Uncontrollable bleeding Sincerely, David Barker MD, MS Radiation Oncology documented in this encounter Progress Notes * David Barker MD - 12/24/2023 2:00 PM EST Images from the original note were not included. Radiation Oncology Prostate Cancer Consult Note David Barker MD, MS [facility] [phone] PATIENT IDENTIFICATION: PATIENT NAME: Usman Carver DATE OF : 1955 REFERRING PROVIDER: Dr Chiu PRIMARY CARE PROVIDER: Georgette Mercedes NP REASON FOR CONSULTATION : Cancer Staging Malignant neoplasm of prostate Staging form: Prostate, AJCC 8th Edition - Clinical: Stage IIIC (cT1c, cN0, cM0, PSA: 28, Grade Group: 5) - Signed by David Barker MD on 12/23/2023 HISTORY OF PRESENT ILLNESS: Usman Carver is a 68 y.o. male recently diagnosed with a high -risk prostate cancer. Presenting Symptoms / Duration: ePSA Prior consultations [...] Gr2 JUWAN No SVI / LAD PSMA PET 12/28/23 PENDING Pathology Results / Location: [facility] - Dr Chiu - 11/12/23 GG5 x 10 of 17 (incl 5 of 7 targeted biopsies) GG3 x 4 GG2 x 5 Usman is here today to discuss radiation therapy for treatment of his recently diagnosed prostatecancer. REVIEW OF SYSTEMS: 12/24/2023 2:08 PM REVIEW OF SYSTEMS Constitutional None of the above Ear / nose / throat / mouth Don't know Eyes None of the above Respiratory None of the above Cardiovascular None of the above Gastrointestinal None of the above Skin, hair None of the above Musculoskeletal None of the above Neurological None of the above Hematologic / Lymphatic None of the above Genitourinary None of the above Most recent colonoscopy was 2022. A comprehensive 14 point review of systems was conducted with this patient and is otherwise negative except as documented above. Baseline KIRSTIE and IPSS are as below: 12/24/2023 2:12 PM KIRSTIE Responses Sexual Health Inventory for Men 1 (Severe ED) KIRSTIE: Confidence, level - past 6 months Very low KIRSTIE: Penetration - past 6 months No sexual activity KIRSTIE: Penetration, maintain - past 6 months Did not attempt intercourse KIRSTIE: Erection, maintain - past 6 months Did not attempt intercourse KIRSTIE: Sexual satisfaction - past 6 months Did not attempt intercourse 12/24/2023 2:11 PM IPSS Responses International Prostate Symptom Score 9 (Moderate LUTS) IPSS: ncomplete emptying Not at all IPSS: Frequency About half the time IPSS: Intermittency Less than 1 time in 5 IPSS: Urgency Less than 1 time in 5 IPSS: Weak Stream Less than 1 time in 5 IPSS: Straining Not at all IPSS: Nocturia 3 times IPSS: Quality of life Mostly satisfied PAST MEDICAL HISTORY Past Medical History: Diagnosis Date Hypertension Past Surgical History: Procedure Laterality Date COLONOSCOPY 2022 REVISION TOTAL HIP ARTHROPLASTY Right 2021 US GUIDED BIOPSY PROSTATE WITH URONAV FUSION 11/12/2023 US Guided Biopsy Prostate with Uronav Fusion 11/12/2023 [facility] RAD ULTRASOUND CONTRAINDICATIONS TO RADIATION THERAPY: None Prior radiation therapy: No Active Lupus: No Systemic Scleroderma: No MEDICATIONS: Medications 12/24/23 1324 Medication Sig Taking? amLODIPine (Norvasc) 5 mg tablet Take 5 mg by mouth daily. Yes lisinopriL (Zestril) 40 mg tablet Take 40 mg by mouth daily. Yes ALLERGIES: No Known Allergies SOCIAL HISTORY: [place]: [place], [place] Living Situation: Lives alone No nearby supports Transit time to 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 General: appears younger than stated age, sitting in exam room alone CORNEL: deferred TODAY'S PERFORMANCE STATUS: KPS Score ECOG Grade [...] to bed or chair ASSESSMENT / PLAN: Usman Carver is a 68 y.o. man diagnosed with high-risk prostate cancer (cT1c, GG5, PSA 23). Staging PSMA PET is pending 12/27. Assuming he has localized (or at least locoregional only) disease, we reviewed the risks, benefits,rationale of radiation therapy. Active surveillance and surgery were not reviewed in detail, given advanced histology. With regard to his radiation options, I reviewed the following: SBRT to the prostate Moderately hypofractionated RT to the prostate + pelvic RT Brachytherapy to the prostate + pelvic RT In the short term, I reviewed the common irritative bowel and bladder side effects associated with all forms of radiotherapy. In the senior care, I explained there is an approximately 2% chance of serious bladder or rectal toxicity as well as a very low risk of inducing a secondary malignancy. I alsoreviewed that with radiation there are few reliable salvage curative options. Logistics of external beam treatment were also reviewed, including the role of fiducial marker placement, simulation, and treatment. Logistics of HDR brachytherapy were also reviewed, including the fact that I would refer his case to Dr Korey Larsen at [facility] who routinely performs these implants. I also reviewed the role of long-term ADT and side effects associated with this treatment. He understands there is an overall survival when ADT is added to radiotherapy, including also a decreased risk for salvage therapies. We reviewed side effects which can occur, including diminished libido, hotflashes, weight gain, mood swings, depression and/or osteoporosis. I also reviewed the role for ADTintensification given very high risk status. A referral was placed today. Clinical trials were also reviewed briefly. Pending staging, he may be a candidate for HIGH-FIVE (NRG 013), a randomized study for high risk prostate cancer patients comparing standard of care external beam RT vs SBRT (5 fractions). On balance, Usman wishes to proceed with PSMA PET staging and I will see him afterwards to reviewresults and start ADT w [employer]. Follow-up appointments will be made accordingly. All of his questions were answered to his satisfaction, and we have provided him with our contact information should any further questions or concerns arise. SUMMARY OF PLAN / RECOMMENDATION: Intent of therapy: Curative Clinical Trial Availability: Yes - possibly NRG 013 PSMA PET 12/27 --> review results same day as starting ADT next week Refer to med/onc re: ADT intensification Time Attestation: I certify spending at least 60 minutes in providing care to this patient today, 12/24/23 as reflected by the following activities: - review of his medical record in the chart, including interpretation of imaging, laboratory and pathologic studies referenced above - discussion of the above with the patient as part of shared medical decision making - documenting the outcome of today's visit as above DAVID BARKER MD, MS * Bernie Sondra Nino RN - 12/24/2023 2:00 PM EST RADIATION ONCOLOGY NURSING INITIAL NURSING ASSESSMENT Chief complaint: Prostate CA ADVANCE DIRECTIVES: did not discuss today PRESENTING SYSTEMS and PATHOLOGY: No sx; elevated PSA REVIEW OF SYSTEMS: see questionnaire Medical history: Past Medical History: Diagnosis Date Hypertension Surgical history: Last colonoscopy - 2022 Past Surgical History: Procedure Laterality Date REVISION TOTAL HIP ARTHROPLASTY Right 2021 US GUIDED BIOPSY PROSTATE WITH URONAV FUSION 11/12/2023 US Guided Biopsy Prostate with Uronav Fusion 11/12/2023 [facility] RAD ULTRASOUND Social History: Driving from [place], [place] Lives with - Alone Occupation - Retired [employer] Alcohol/Drug/Tobacco use - Never smoke/drugs; occasional beer Social History Socioeconomic History Marital status: Single Spouse name: Not on file Number of children: Not on file Years of education: Not on file Highest education level: Not on file Occupational History Not on file Tobacco Use Smoking status: Never Smokeless tobacco: Never Vaping Use Vaping status: Never Used Substance and Sexual Activity Alcohol use: Yes Alcohol/week: 1.0 standard drink of alcohol Types: 1 Cans of beer per week Drug use: Never Sexual activity: Not on file Other Topics Concern Not on file Social History Narrative Not on file Social Determinants of Health Financial Resource Strain: Not on file Food Insecurity: Not on file Transportation Needs: Not on file Physical Activity: Not on file Intimate Partner Violence: Not on file Housing Stability: Not on file Family History of cancer: Family History Problem Relation Age of Onset Lymphoma Father Lung Cancer Paternal Uncle Prior Radiotherapy: No Site: Date: Facility: Prior Chemotherapy: No Drug: Oncologist- LastTreatment: Prior hormone treatment/medications: No Drug: LastTreatment: RADIATION SPECIFIC REVIEW: NO: YES: Claustrophobia or requires sedation for MRIs X Allergy to CT or MRI contrast agent or iodine or shellfish X Diabetic and on metformin X Metal in body, implanted device, worked with metal, body piercings,braces Right hip replacement hearing device X Dentures X Pacemaker X Difficulty breathing while lying flat X H/O Sclera derma X Currently X Active lupus X Kidney problems/creatinine X Balance difficulty: No At risk for fall: No If yes, actions implemented to prevent fall: Patient/family instructed to avoid independent ambulation. Use wheelchair and ask for assistance of staff while in the clinic. ADL [ X ] no limits [ ] needs dressing assistance [ ] needs meal assistance Assistive device:[ X ]none [ ]cane [ ]walker [ ]wheelchair [ ]other: explain PAIN ASSESSMENT: [ ] out of 10 Location: Description: [ ] Dull [ ] Sharp [ ] Burning [ ] Throbbing [ ] Radiating [ ] Continuous [ ]Intermittent Aggravating Factors: [ ] Movement [ ] Position [ ]Immobility [ ]Other Alleviating Factors: [ ]Medication [ ] Positioning [ ] Other Current Pain Management Plan: [ ]Satisfied [ ] Not satisfied SOCIAL ASSESSMENT: See EDH social assessment information entered. Support Systems: Sister in [place], Sister & brother in [place]; no one nearby transportation plan: [X ]private vehicle [ ] RCT needs Social Work referral [ ] Unknown at this time needs Social Work referral Barriers to treatment: None Referrals/Interventions: Will see TURF AND GROUNDS SUPERVISOR per routine during SIM appointment. TEACHING: LEARNING STYLE: [ ] Visual [ X ] verbal [ ] wants written material and verbal discussion. Language barriers: [ X ] no [ ] yes [ ] see learning needs assessment Education material provided: Will be provided during SIM appointment per routine documented in this encounter Plan of Treatment Upcoming Encounters Date Type Department Care Team (Late st Contact Info) Description 04/13/2024 3:00 PM EST Telephone Radiation Oncology at [address] [phone] Jose Ferraro [place] 04/20/2024 8:30 AM EDT Scheduled View Only Radiation Oncology at [address] [phone] Jose Ferraro Waqas 04/20/2024 9:00 AM EDT Procedure visit Radiation Oncology at [address] [phone] David Barker MD [address] [place] [address] [place] [address] 04/20/2024 9:00 AM EDT Scheduled View Only Radiation Oncology at [address] [phone] 04/22/2024 3:30 PM EDT Infusion Hematology Oncology at [address] [phone] 04/25/2024 10:10 AM EDT [place] [phone] David Barker MD [address] [place] [address] [place] [address] 04/25/2024 11:30 AM EDT Scheduled View Only [place] [phone] 04/25/2024 12:00 PM EDT Ancillary Appointment [place] [phone] David Barker MD [address] [place] [address] [place] [address] 04/25/2024 12:00 PM EDT Scheduled View [place] [phone] Scheduled Referrals Name Type Priority Associated Diagnoses Order Schedule Referral to Hematology and Oncology Outpatient Referral Routine Malignant neoplasm of prostate Ordered: 12/24/2023 documented as of this encounter Visit Diagnoses Diagnosis Malignant neoplasm of prostate documented in this encounter Care Teams Efficiency Clerk Relationship Specialty Start Date End Date Georgette Mercedes APRN [address] [place] [address] PCP - General Internal Medicine 10/23/23 02/15/24 documented as of this encounter
--- OUTSIDE RECORDS SUMMARY | 2024-02-16 16:33 | XMS_ITS | Encounter Summary ---
Author Organization [facility] [place] [address] Care Team Providers Care Corporate Real Estate Manager Name Role Phone Georgette Mercedes JUANITA Primary Care Provider [phone] Reason for Visit * Reason Onset Date Comments Medication Problem 02/01/2024 Encounter Details Date Type Department Care Team (Late st Contact Info) Description 02/01/2024 Refill Hematology [place] [phone] Funmi Tobar INSPECTOR BOILER ROOM Social History Tobacco Use Types Packs/Day Years [...] Telephone Encounter - Funmi Tobar RN - 02/02/2024 10:55 AM EST Oral Chemotherapy Rx Refill Note (No Rx Change) 02/02/2024 Usman Carver, 1955 Prescription for oral chemotherapy xtandi was written by provider without any changes and e-prescribed to pharmacy to be filled. * Telephone Encounter - Funmi Tobar RN - 02/01/2024 4:29 PM EST Message received from guidance secretary: [phone] - patient called - he spoke with [employer] today regarding his Abiraterone. The problem is, he doesn't have internet at his house, and he doesn't have an email address. They won't take his credit card information over the phone - has to be done via the internet. He's not sure what to do to get his medication Discussed w/ Tova Lee RPH. If no friends/family who have internet/ email he can use, and no local library he can get a 30 day supply of abiraterone 250 mg through our pharmacy's discount card for $148 Spoke w/ pt and reviewed above options. Pt stated he doesn't have any family/friends that have internet who can help with the internet/email issue. He was able to get his prednisone w/o issue through . He would like to obtain through [facility]. Pt is aware to call clinic once he receives medication, prior to starting. documented in this encounter Plan of Treatment Upcoming Encounters Date Type Department Care Team (Late st Contact Info) Description 04/13/2024 3:00 PM EST Telephone Radiation Oncology at [address] [address] Jose Nurse, [facility] 04/20/2024 8:30 AM EDT Scheduled View Only Radiation Oncology at [address] [phone] Jose Nurse, [facility] 04/20/2024 9:00 AM EDT Procedure visit Radiation Oncology at [address] [address] David Barker MD [address] [place] [address] [place] [address] 04/20/2024 9:00 AM EDT Scheduled View Only Radiation Oncology at [address] [address] 04/22/2024 3:30 PM EDT Infusion Hematology Oncology at [address] [address] 04/25/2024 10:10 AM [place] [address] David Barker MD [address] [place] [address] [place] [address] 04/25/2024 11:30 AM EDT Scheduled View [place] [address] 04/25/2024 12:00 PM EDT Ancillary Appointment [place] [address] David Barker MD [address] [place] [address] [place] [address] 04/25/2024 12:00 PM EDT Scheduled View Only [place] [address] documented as of this encounter Goals Goal Patient Goal Type Associated Problems Recent Progress Patient-Stated? Author Patient's specific desired goal: Patient Facing Action Plan Misael Alegria, [facility] Note: Goal(s): 95%+ adherence to abiraterone / prednisone regimen Measured by: MPR or similar adherence monitoring Time-frame: assessed annually by pharmacy documented as of this encounter Visit Diagnoses Not on filedocumented in this encounter Care Teams Corporate Real Estate Manager Relationship Specialty Start Date End Date Georgette Mercedes APRN [address] [place] [address] PCP - General Internal Medicine 10/23/23 02/15/24 documented as of this encounter
--- OUTSIDE RECORDS SUMMARY | 2024-02-16 16:33 | XMS_ITS | Encounter Summary ---
Author Organization [facility] Address [facility] [place] [address] Care Team Providers Care Diesel Mechanic Name Role Phone MagoGeorgette APRN Primary Care Provider [phone] Reason for Visit * Reason Comments Chemotherapy Degarelix * Treatment/Therapy Plan Authorization (Routine) - Closed Specialty Diagnoses / Procedures Referred By Yaneli sepulveda Referred To Contact Hematology and Oncology Diagnoses Malignant neoplasm of prostate Procedures INFUSION David Barker MD [address] [place] [address] [place] [address] St Hem Onc Infusion [address] [place] [phone] Referral ID Status Reason Start Date Expiration Date Visits Re quested Visits Authorized [id number] Closed 12/24/2023 12/23/2024 1 99 Encounter Details Date Type Department Care Team (Late st Contact Info) Description 01/01/2024 9:00 AM EST Infusion Hematology Oncology at [address] [address] Malignant neoplasm of prostate Social [...] as of this encounter Progress Notes * Adela Bauer RN - 01/01/2024 9:00 AM EST Infusion Note Diagnosis:Prostate Cancer Treatment: Degarelix Injection Degarelix injected in right and left sides of abdomen. Patient instructed on side effects of degarelix. Patient states understanding of teaching, Patient aware to call clinic with any questions or concerns. Plan: Return to clinic as scheduled. documented in this encounter Plan of Treatment Upcoming Encounters Date Type Department Care Team (Late st Contact Info) Description 04/13/2024 3:00 PM EST Telephone Radiation Oncology at [address] [address] Rad Nurse, [facility] 04/20/2024 8:30 AM EDT Scheduled View Only Radiation Oncology at [address] [phone] Jose Nurse, [facility] 04/20/2024 9:00 AM EDT Procedure visit Radiation Oncology at [address] [phone] David Barker MD [address] [place] [address] [place] [address] 04/20/2024 9:00 AM EDT Scheduled View Only Radiation Oncology at [address] [phone] 04/22/2024 3:30 PM EDT Infusion Hematology Oncology at [address] [address] 04/25/2024 10:10 AM EDT [place] [address] David Barker MD [address] [place] [address] [place] [address] 04/25/2024 11:30 AM EDT Scheduled View Only [place] [address] 04/25/2024 12:00 PM EDT Ancillary Appointment [place] [address] David Barker MD [address] [place] [address] [place] [address] 04/25/2024 12:00 PM EDT Scheduled View [place] [address] documented as of this encounter Visit Diagnoses Diagnosis Malignant neoplasm of prostate documented in this encounter Administered Medications Inactive Administered Medications - up to 3 most recent administrations Medication Order MAR Action Action Date Dose Rate Site degarelix (Firmagon) (240 mg/6 mL) injection 240 mg 240 mg, Subcutaneous, ONCE, 1 dose, On Thu01/01/24 at 0945, Routine, This agent is restricted to outpatient use. Is this drug being given as an outpatient? Yes Given 01/01/2024 9:20 AM EST 240 mg Abdominal Tissue documented in this encounter Care Teams Diesel Mechanic Relationship Specialty Start Date End Date Georgette Mercedes APRN [address] [place] [address] PCP - General Internal Medicine 10/23/23 02/15/24 documented as of this encounter
--- OUTSIDE RECORDS SUMMARY | 2024-02-16 16:33 | XMS_ITS | Encounter Summary ---
Author Organization [facility] Address [facility] [place] [address] Care Team Providers Care Flight Attendant Ramp Name Role Phone MagoGeorgette APRN Primary Care Provider Reason for Visit * Reason Comments Advice Only * Consultation (Routine) - Closed Specialty Diagnoses / Procedures Referred By Yaneli sepulveda Referred To Contact Hematology and Oncology Diagnoses Malignant neoplasm of prostate David Barker MD [address] [place] [address] [place] [address] [facility] Hem Onc Office [address] [place] [phone] Referral ID Status Reason Start Date Expiration Date V isits Requested Visits Authorized [id number] Closed Consult, Test & Treat 12/24/2023 12/23/2024 1 1 Encounter Details Date Type Department Care Team (Late st Contact Info) Description 01/13/2024 2:30 PM EST Office Visit [place]ematology [place] [address] Agusto Duarte MD [facility] DR [place] [address] 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); Malignant neoplasm of prostate; Androgen deprivation therapy Social History Tobacco Use Types Packs/Day Years [...] Sign Reading Time Taken Comments Blood Pressure 152/94 01/13/2024 2:20 PM EST Pulse 97 01/13/2024 2:20 PM EST Temperature 36.5 ??C (97.7 ??F) 01/13/2024 2:20 PM ES T Respiratory Rate 18 01/13/2024 2:20 PM EST Oxygen Saturation 97% 01/13/2024 2:20 PM EST Inhaled Oxygen Concentration - - Weight 89.9 kg (198 lb 3.2 oz) 01/13/2024 2:20 P M EST Height 184 cm (6' 0.44) 01/13/2024 2:20 PM EST Body Mass Index 26.55 01/13/2024 2:20 PM EST documented in this encounter Progress Notes * Agusto Duarte MD - 01/13/2024 2:30 PM EST Diagnosis: Prostatic adenocarcinoma, grade group 5, [place] 4+5 with metastases to local lymph nodes CC: I feel fine HPI:Usman Carver is 68 y[address] Dr[address] Barker for consultation on prostate cancer. He initially presented with elevated PSA PMH: Social History: No changes Family History: No [...] deficits. Psych: Conversant, normal mood and affect. Pathology: 11/12/23 Prostatic adenocarcinoma, Grade Group 5 ([place] score 4+5=9), with cribriform features, involving 80% of a single core. - [place] pattern 5 represents 10% of tumor. Labs: PSA testosteron 06/16/23 28.3 PSA History: 11/2022 18.8 05/2023 [...] 28, Treatment: -01/01/24 started degarelix 240 mg Usman Carver is 68 y.o. gentleman with [...] He would like to see us at [facility]. Will make arrangements. He will continue to follow with Dr. Barker for radiation therapy and ADT Plan: Start abiraterone 1000 mg and prednisone 5 mg a day Next visit with CBC, CMP, PSA, testosterone on February 15 at [facility] F/u with Dr. Barker The plan was discussed with the patient in details. All questions were answered to patient's satisfaction. I would like to thank Dr. Barker for allowing me participate in the care of this wonderful gentleman * Funmi Tobar RN - 01/13/2024 2:30 PM EST Oral Chemotherapy Check Note 01/14/2024 Usman Carver, 1955 Prescriptions for oral chemotherapy were reviewed as follows: Oral Chemotherapy Order Zytiga: Order details: Dose: 1000 mg Route: Oral Quantity to be dispensed #: # 60-500 mg Number of refills: 11 Instructions: Take 2 tablets by mouth daily on an empty stomach Cycle number and length: Not applicable, continuous Start date: When received Plan of care compared to information in the medical record, including note from provider on 01/12 (date). The prescription was found to be complete and accurate. It will be escribe to the appropriate pharmacy following pharmacist verification. documented in this encounter Plan of Treatment Upcoming Encounters Date Type Department Care Team (Late st Contact Info) Description 04/13/2024 3:00 PM EST Telephone Radiation Oncology at [address] [phone] Jose Nurse, [facility] 04/20/2024 8:30 AM EDT Scheduled View Only Radiation Oncology at [address] [address] Jose Nurse, [facility] 04/20/2024 9:00 AM EDT Procedure visit Radiation Oncology at [address] [phone] David Barkre MD [address] [place] [address] [place] [address] 04/20/2024 9:00 AM EDT Scheduled View Only Radiation Oncology at [address] [phone] 04/22/2024 3:30 PM EDT Infusion Hematology Oncology at [address] [phone] 04/25/2024 10:10 AM [place] [address] David Barker MD [address] [place] [address] [place] [address] 04/25/2024 11:30 AM EDT Scheduled View [place] [phone] 04/25/2024 12:00 PM EDT Ancillary Appointment [place] [phone] David Barker MD [address] [place] [address] [place] [address] 04/25/2024 12:00 PM EDT Scheduled View [place] [phone] Scheduled Orders Name Type Priority Associated Diagnoses Orde r Schedule PSA (Ultrasensitive) Lab Routine Malignant neoplasm of prostate Prostate cancer metastatic to intrapelvic lymph node Every 4 Weeks for 4 Occurrences starting 01/13/2024 until 01/12/2025 CBC (with Diff) Lab Routine Malignant neoplasm of prostate Prostate cancer metastatic to intrapelvic lymph node Every 4 Weeks for 4 Occurrences starting 01/13/2024 until 01/12/2025 Comprehensive metabolic panel Lab Routine Malignant neoplasm of prostate Prostate cancer metastatic to intrapelvic lymph node Every 4 Weeks for 4 Occurrences starting 01/13/2024 until 01/12/2025 Testosterone, total Lab Routine Malignant neoplasm of prostate Prostate cancer metastatic to intrapelvic lymph node Every 4 Weeks for 4 Occurrences starting 01/13/2024 until 01/12/2025 documented as of this encounter Visit Diagnoses Diagnosis Prostate cancer metastatic to intrapelvic lymph node- Primary Malignant neoplasm of prostate Androgen deprivation therapy Encounter for therapeutic drug monitoring documented in this encounter Care Teams Flight Attendant Ramp Relationship Specialty Start Date End Date Georgette Mercedes APRN [address] [place] [address] PCP - General Internal Medicine 10/23/23 02/15/24 documented as of this encounter
--- OUTSIDE RECORDS SUMMARY | 2024-02-16 16:33 | XMS_ITS | Encounter Summary ---
[place] [address] Care Team Providers Care Long Distance Operator Name Role Phone Georgette Mercedes JUANITA Primary Care Provider [phone] Reason for Referral * Diagnostic Test (Routine) - Closed Specialty Diagnoses / Procedures Referred By Contac t Referred To Contact Radiology Diagnoses Malignant neoplasm of prostate Procedures NM PET CT PSMA Prostate (Illuccix) Mingo Chiu MD [facility] [place] [address] [place] [address] Referral ID Status Reason Start Date Expiration Date V isits Requested Visits Authorized [id number] Closed Specialty Service Requested 11/20/2023 05/20/2025 1 1 Reason for Visit * Diagnostic Test (Routine) - Closed Specialty Diagnoses / Procedures Referred By Contac t Referred To Contact Radiology Diagnoses Malignant neoplasm of prostate Procedures NM PET CT PSMA Prostate (Illuccix) Mingo Chiu MD [facility] [place] [address] [place] [address] Referral ID Status Reason Start Date Expiration Date V isits Requested Visits Authorized [id number] Closed Specialty Service Requested 11/20/2023 05/20/2025 1 1 Encounter Details Date Type Department Care Team (Latest Contact Info) Description 12/28/2023 6:02 AM EST - 12/28/2023 11:59 PM EST Hospital Encounter [place] [address] Mingo Chiu MD [facility] [place] [address] Malignant neoplasm of prostate Discharge Disposition: Home Social History Tobacco Use [...] 3:00 PM EST Telephone Radiation Oncology at [address] [phone] Jose Nurse [facility] 04/20/2024 8:30 AM EDT Scheduled View Only Radiation Oncology at [address] [phone] Jose Ferraro [facility] 04/20/2024 9:00 AM EDT Procedure visit Radiation Oncology at [address] [phone] David Barker MD [address] [place] [address] [place] [address] 04/20/2024 9:00 AM EDT Scheduled View Only Radiation Oncology at [address] [address] 04/22/2024 3:30 PM EDT Infusion Hematology Oncology at [address] [address] 04/25/2024 10:10 AM EDT [place] [address] David Barker MD [address] [place] [address] DR RADIATION [place]COLOGY [place] [address] 04/25/2024 11:30 AM EDT Scheduled View Only [place] [phone] 04/25/2024 12:00 PM EDT Ancillary Appointment [place] [phone] David Barker MD [address] [place] [address] DR RADIATION ONCOLOGY [place] [address] 04/25/2024 12:00 PM EDT Scheduled View [place] [phone] documented as of this encounter Procedures Procedure Name Priority Date/Time Associated Diagnosis Comments NM PET CT PSMA PROSTATE (ILLUCCIX) Routine 12/28/2023 8:14 AM EST Malignant neoplasm of prostate documented in this encounter Results * NM PET CT PSMA Prostate (Illuccix) (12/28/2023 8:14 AM EST) WORKSTATION ID [id number] RAD Anatomical Region Laterality Modality Positron Emissio [...] Thank you for referring this patient to [facility]. I have personally reviewed the [...] who have questions please contact the health nursing care attendant that requested your imaging first. ? Narrative [...] nodule in the posterior right lower lobe ([id number]). No adenopathy. Aortic calcifications. ABDOMEN/PELVIS: Heterogeneous tracer [...] Thank you for referring this patient to [facility]. I have personally reviewed the image(s) and the resident's interpretationand agree with the findings, Jose Mehta MD at 12/30/2023 11:47 AM Thank you for letting us participate in the care of this patient. If youare a health care provider and have any questions regarding this report,please contact the number below. For patients who have questions please contactthe health nursing care attendant that requested your imaging first. Mingo Chiu MD IMG PET ORDERABLES documented in this encounter Visit Diagnoses Diagnosis Malignant neoplasm of prostate documented in this encounter Administered Medications Inactive Administered Medications - up to 3 most recent administrations Medication Order MAR Action Action Date Dose Rate Site Ga 68 psma-11 (Illuccix) injection 4-10 mCi 4-10 mCi, Intravenous, ONCE, 1 dose, On 12/28/23 at 0730, Radiology Contrast, Routine Given 12/28/2023 6:31 AM EST 4.7 mCi documented in this encounter Care Teams Long Distance Operator Relationship Specialty Start Date End Date Georgette Mercedes APRN [address] [facility] [place] [address] PCP - General Internal Medicine 10/23/23 02/15/24 documented as of this encounter
--- OUTSIDE RECORDS SUMMARY | 2024-02-16 16:33 | XMS_ITS | Encounter Summary ---
Author Organization [facility] [place] [address] Care Team Providers Care Screening Specialist Name Role Phone Mago Georgette Thor GRANT Primary Care Provider [phone] Encounter Details Date Type Department Care Team (Latest Contact Info) Description 12/24/2023 Travel Social History Tobacco Use Types Packs/Day [...] PM EST Telephone Radiation Oncology at [address] [phone] Jose Ferraro, [facility] 04/20/2024 8:30 AM EDT Scheduled View Only Radiation Oncology at [address] [phone] Jose Nurse [facility] 04/20/2024 9:00 AM EDT Procedure visit Radiation Oncology at [address] [phone] David Barker MD [address] [place] [address] [place] [address] 04/20/2024 9:00 AM EDT Scheduled View Only Radiation Oncology at [address] [phone] 04/22/2024 3:30 PM EDT Infusion Hematology Oncology at [address] [phone] 04/25/2024 10:10 AM EDT [place] [address] David Barker MD [address] [place] [address] [place] [address] 04/25/2024 11:30 AM EDT Scheduled View Only [place] [address] 04/25/2024 12:00 PM EDT Ancillary Appointment [place] [address] David Barker MD [address] [place] [address] [place] [address] 04/25/2024 12:00 PM EDT Scheduled View [place] [address] documented as of this encounter Visit Diagnoses Not on filedocumented in this encounter Care Teams Screening Specialist Relationship Specialty Start Date End Date Georgette Mercedes APRN [address] [place] [address] PCP - General Internal Medicine 10/23/23 02/15/24 documented as of this encounter
--- OUTSIDE RECORDS SUMMARY | 2024-02-16 16:33 | XMS_ITS | Encounter Summary ---
Author Organization [facility] [place] [address] Care Team Providers Care Ripper Operator Name Role Phone Georgette Mercedes JUANITA Primary Care Provider [phone] Encounter Details Date Type Department Care Team (Late st Contact Info) Description 02/06/2024 Specialty [place] [phone] Sangeetha Abernathy [facility] Social History Tobacco Use Types Packs/Day Years Used Date Smoking Tobacco: Never Smokeless Tobacco: Never Alcohol Use Standard Drinks/Week Comments Yes 1 (1 standard drink = 0.6 oz pur e alcohol) Sex and Gender Information Value Date Recorded Sex Assigned at Not on file Gender Identity Not on file Sexual Orientation Not on file documented as of this encounter Progress Notes * Sangeetha Abernathy [facility] - 02/06/2024 11:53 AM EST Usman Carver called the [facility] after hours line to let us know he had received his abiraterone. I informed Usman that he should contact his provider's office as they typically like to review the medication before starting. Usman already contacted [facility] and is waiting for their call back before starting the medication. Electronically signed by Sangeetha Abernathy [facility] at 02/06/2024 11:55 AM EST documented in this encounter Plan of Treatment Upcoming Encounters Date Type Department Care Team (Late st Contact Info) Description 04/13/2024 3:00 PM EST Telephone Radiation Oncology at [address] [phone] St [facility] 04/20/2024 8:30 AM EDT Scheduled View Only Radiation Oncology at [address] [phone] Rad Nurse, [facility] 04/20/2024 9:00 AM EDT Procedure visit Radiation Oncology at [address] [phone] David Barker MD [address] [place] [address] [place] [address] 04/20/2024 9:00 AM EDT Scheduled View Only Radiation Oncology at [address] [phone] 04/22/2024 3:30 PM EDT Infusion Hematology Oncology at [address] [phone] 04/25/2024 10:10 AM [place] [phone] David Barker MD [address] [place] [address] DR RADIATION ONCOLOGY [place], [place] [address] 04/25/2024 11:30 AM EDT Scheduled View [place] [phone] 04/25/2024 12:00 PM EDT Ancillary Appointment [place] [phone] David Barker MD [address] [place] [address] DR RADIATION ONCOLOGY [place], [place] [address] 04/25/2024 12:00 PM EDT Scheduled View Only [place] [phone] documented as of this encounter Goals Goal Patient Goal Type Associated Problems Recent Progress Patient-Stated? Author Patient's specific desired goal: Patient Facing Action Plan Misael Alegria, [facility] Note: Goal(s): 95%+ adherence to abiraterone / prednisone regimen Measured by: MPR or similar adherence monitoring Time-frame: assessed annually by pharmacy documented as of this encounter Visit Diagnoses Not on filedocumented in this encounter Care Teams Ripper Operator Relationship Specialty Start Date End Date Georgette Mercedes APRN [address] [place] [address] PCP - General Internal Medicine 10/23/23 02/15/24 documented as of this encounter
--- OUTSIDE RECORDS SUMMARY | 2024-02-16 16:33 | XMS_ITS | Encounter Summary ---
[facility] Organization [facility] [place] [address] Care Team Providers Care Duplicator Punch Set Up Operator Name Role Phone Mago Georgette Thor GRANT Primary Care Provider Encounter Details Date Type Department Care Team (Latest Contact Info) Description 12/28/2023 Travel Social History Tobacco Use Types Packs/Day [...] 3:00 PM EST Telephone Radiation Oncology at [address] [phone] Jose Ferraro, [facility] 04/20/2024 8:30 AM EDT Scheduled View Only Radiation Oncology at [address] [phone] Jose Nurse [facility] 04/20/2024 9:00 AM EDT Procedure visit Radiation Oncology at [address] [phone] David Barker MD [address] [place] [address] [place] [address] 04/20/2024 9:00 AM EDT Scheduled View Only Radiation Oncology at [address] [phone] 04/22/2024 3:30 PM EDT Infusion Hematology Oncology at [address] [phone] 04/25/2024 10:10 AM [place] [address] David Barker MD [address] [place] [address] [place] [address] 04/25/2024 11:30 AM EDT Scheduled View [place] [address] 04/25/2024 12:00 PM EDT Ancillary Appointment [place] [address] David Barker MD [address] [place] [address] [place] [address] 04/25/2024 12:00 PM EDT Scheduled View [place] [phone] documented as of this encounter Visit Diagnoses Not on filedocumented in this encounter Care Teams Duplicator Punch Set Up Operator Relationship Specialty Start Date End Date Georgette Mercedes APRN [address] [place] [address] PCP - General Internal Medicine 10/23/23 02/15/24 documented as of this encounter
--- OUTSIDE RECORDS SUMMARY | 2024-02-16 16:33 | XMS_ITS | Encounter Summary ---
Author Organization [facility] [place] [address] Care Team Providers Care Energy Broker Name Role Phone Georgette Mercedes JUANITA Primary Care Provider Reason for Visit * Reason Onset Date Comments Chemotherapy Teaching 01/29/2024 Encounter Details Date Type Department Care Team (Late st Contact Info) Description 01/29/2024 Telephone [place] [phone] Funmi Tobar WAREHOUSE ANALYST ROOM Chemotherapy Teaching Social History Tobacco Use [...] Telephone Encounter - Funmi Tobar RN - 01/29/2024 3:18 PM EST Spoke w/ pt who stated has received his prednisone, has not heard from Vikram Merino. Phone # for Vikram Merino provided. Pt agreed to call pharmacy. He is aware to call clinic once zytigais received. documented in this encounter Plan of Treatment Upcoming Encounters Date Type Department Care Team (Late st Contact Info) Description 04/13/2024 3:00 PM EST Telephone Radiation Oncology at [address] [phone] St Waqas Hamm 04/20/2024 8:30 AM EDT Scheduled View Only Radiation Oncology at [address] [phone] Rad Nurse, Waqas 04/20/2024 9:00 AM EDT Procedure visit Radiation Oncology at [address] [phone] David Barker MD [address] [place] [address] [place] [address] 04/20/2024 9:00 AM EDT Scheduled View Only Radiation Oncology at [address] [phone] 04/22/2024 3:30 PM EDT Infusion Hematology Oncology at [address] [phone] 04/25/2024 10:10 [place] [address] David Barker MD [address] [place] [address] DR RADIATION ONCOLOGY [place], [place] [phone] 04/25/2024 11:30 AM EDT Scheduled View [place] [address] 04/25/2024 12:00 PM EDT Ancillary Appointment [place] [address] David Barker MD [address] [place] [address] DR RADIATION ONCOLOGY [place], [place] [address] 04/25/2024 12:00 PM EDT Scheduled View [place] [address] documented as of this encounter Visit Diagnoses Not on filedocumented in this encounter Care Teams Energy Broker Relationship Specialty Start Date End Date Georgette Mercedes APRN [address] [place] [address] PCP - General Internal Medicine 10/23/23 02/15/24 documented as of this encounter
--- OUTSIDE RECORDS SUMMARY | 2024-02-16 16:34 | XMS_ITS | Encounter Summary ---
Author Organization [facility] Address [address] [place] [address] Care Team Providers Care Marketing Communications Leader Name Role Phone None, Provider Primary Care Provider Unavailabl e Encounter Details Date Type Department Care Team (Late st Contact Info) Description 10/30/2022 Lab Requisition [facility] Pathology & Laboratory Medicine - [facility] [address] [place] [address] Kushal Gracia MD [address] [place] [address], [address] [place] [address] Encounter for screening for malignant neoplasm of colon Social History Tobacco Use Types Packs/Day Years Used Date Smoking Tobacco: Never Alcohol Use Standard Drinks/Week Comments Yes 0 (1 standard drink = 0.6 oz pur e alcohol) Interpersonal Safety Answer Date Record ed Physically Hurt Never 09/11/2019 Verbally Threaten Not on file 09/11/2019 Sex and Gender Information Value Date Recorded Sex Assigned at Not on file Legal Sex Male 12:14 EST Gender Identity Not on file Sexual Orientation Not on file documented as of this encounter Plan of Treatment Not on file documented as of this encounter Procedures Procedure Name Priority Date/Time Associated Diagnosis Comments SURGICAL PATHOLOGY Today 10/30/2022 7:36 EDT Encounter for screening for malignant neoplasm of colon documented in this encounter Results * SURGICAL PATHOLOGY (10/30/2022 7:36 EDT) Note to Patient The following pathology results have been interpreted by your pathologist and may be available to you before your health provider has had the opportunity to review them. Please allow time for your provider to receive these results and explore management options, if applicable. 10/31/2022 14:32 [facility] Final Diagnosis A. COLON, 45 CM, POLYP, BIOPSY: - Tubular adenoma. 10/31/2022 14:32 [facility] Attestation By the signature below, the attending physician certifies that they have 1) personally conducted a gross and/or microscopic examination of the described specimen(s), and/or personally interpreted the results of laboratory testing of the described specimen(s), and 2) personally rendered or confirmed the above diagnosis. 10/31/2022 14:32 [facility] at 1432 Clinical History Screening 10/31/2022 14:32 [facility] Gross Description A. Received in formalin labelled with proper patient identification (initials B, R) and colon polyp at 45 cm is a zee lobulated polyp, 0.6 x 0.5 x 0.2 cm. Bisected and entirely submitted in A1. JEAN PAUL PATEL(ASCP) 10/30/2022 17:45 10/31/2022 14:32 [facility] Performing Lab [facility] 10/31/2022 14:32 [facility] Scanned Images 10/31/2022 14:32 [facility] Tissue COLON STRUCTURE / Unknown 10/30/2022 7:36 EDT 10/30/2022 17:29 EDT us Kushal Gracia MD PATHOLOGY ORDERABLES Final Resu lt [facility] [address] [place] [address] documented in this encounter Visit Diagnoses Diagnosis Encounter for screening for malignant neoplasm of colon Special screening for malignant neoplasms, colon documented in this encounter Care Teams Marketing Communications Leader Relationship Specialty Start Date End Date None, Provider PCP - General 03/30/12 documented as of this encounter
--- OUTSIDE RECORDS SUMMARY | 2024-02-16 16:34 | XMS_ITS | Encounter Summary ---
Author Organization [facility] Address [address] [place] [address] Care Team Providers Care Litigation Docket Manager Name Role Phone None, Provider Primary Care Provider Unavailabl e Encounter Details Date Type Department Care Team (Late st Contact Info) Description 06/02/2022 Lab Requisition [facility] Pathology & Laboratory Medicine - [facility] [address] [place] [address] Yecenia Jones PA-C [address] [place] [address] Neoplasm of uncertain behavior of skin Social History Tobacco Use Types Packs/Day Years [...] Date/Time Associated Diagnosis Comments SURGICAL PATHOLOGY Today 06/02/2022 11 :32 EDT Neoplasm of uncertain behavior of skin documented in this encounter Results * SURGICAL PATHOLOGY (06/02/2022 11:32 EDT) Note to Patient The following pathology results have been interpreted by your pathologist and may be available to you before your health provider has had the opportunity to review them. Please allow time for your provider to receive these results and explore management options, if applicable. 06/03/2022 9:18 [facility] Final Diagnosis A. SKIN OF CHEEK, RIGHT CENTRAL BUCCAL, SHAVE BIOPSY: - Seborrheic keratosis, irritated. 06/03/2022 9:18 [facility] Attestation By the signature below, the attending physician certifies that they have 1) personally conducted a gross and/or microscopic examination of the described specimen(s), and/or personally interpreted the results of laboratory testing of the described specimen(s), and 2) personally rendered or confirmed the above diagnosis. 06/03/2022 9:18 [facility] at 0918 Microscopic Description The stratum corneum is thickened by laminated orthohyperkeratos is. The epidermis is hyperplastic with papillomatosis and acanthosis. There is formation of horn pseudocysts. The keratinocytes have a basaloid appearance with round regular nuclei and a moderate amount of cytoplasm. 06/03/2022 9:18 [facility] Clinical History 0.5 cm verrucous papule with central exophytic papule; DDx: Squamous cell carcinoma versus SK; clinical diagnosis code: D48.5 06/03/2022 9:18 [facility] Gross Description A. Received in formalin labelled with proper patient identification (initials B, R) and right central buccal cheek is a shave biopsy of an irregular pink verrucous papule (0.9 x 0.6 x 0.2 cm). The margin is inked blue, the specimen is bisected and entirely submitted in A1. Meghana Gutierrez 06/02/2022 15:26 06/03/2022 9:18 [facility] Performing Lab [facility] 06/03/2022 9:18 [facility] Scanned Images 06/03/2022 9:18 [facility] Tissue TISSUE SPECIMEN FROM SKIN / Unknown 06/02/2022 11:32 EDT 06/02/2022 14:58 EDT Yecenia Jones PA-C PATHOLOGY ORDERABLES Final Result [facility] [address] [place] [address] documented in this encounter Visit Diagnoses Diagnosis Neoplasm of uncertain behavior of skin documented in this encounter Care Teams Litigation Docket Manager Relationship Specialty Start Date End Date None, Provider PCP - General 03/30/12 documented as of this encounter
--- OUTSIDE RECORDS SUMMARY | 2024-02-16 16:34 | XMS_ITS | Encounter Summary ---
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 Pt was wearing glasses with safety wraps. Continues to have FB sensation, no photobhobia, or dec. vision. Encounter Details Date Type Department Care Team (Late st Contact Info) Description 03/30/2012 13:00 EST Office Visit [facility] Ophthalmology - [facility] [address] [place] [address] Jose Purvis MD [address] [facility] [place] [address] Social History Tobacco Use Types Packs/Day Years Used Date Smoking Tobacco: Never Assessed Sex and Gender Information Value Date Recorded Sex Assigned at Not on file Legal Sex Male 12:14 EST Gender Identity Not on file Sexual Orientation Not on file documented as of this encounter Ordered Prescriptions Prescription Sig Dispense Quantity Refills Last Filled Start Date End Date erythromycin (ROMYCIN) 5 mg/gram (0.5 %) ophthalmic ointment Place 1 cm into the left eye 4 times daily. 2 Tube 1 03/30/2012 04/08/2012 documented in this encounter Progress Notes * Dawn Christiansen - 03/30/2012 1438 EST Chief Complaint Patient presents with ??? 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 Pt was wearing glasses with safety wraps. Continues to have FB sensation, no photobhobia,or dec. vision. HPI The patient is a 56 y.o. male presents for acute visit with FBS of the left eye for 4 days. 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 Denies loss of vision, flashes floaters or other vision related complaints. Right Eye: NL Left Eye: Gritty/Foreign Body sensation Visual Aid: Glasses Current Rx Age 1 years Location: Left eye Pain: 0 - No pain Quality: Severity: Mild Duration: Days Timing: Constant Lasts: Continuous Context: while working on car Modifying factors: tried to wash out Associated Signs & Symptoms: foriegn body sensation Attestation: ROS Constitutional: NL ENT/Mouth NL Cardiovascular: NL Respiratory: NL Gastrointestinal: NL Genitourinary: NL Musculoskeletal: NL Integumentary: NL Neurologic: NL Psychiatric: NL Endocrine: NL Hematologic: Immunologic: NL Power Barker Operator: Exposures: None Other: Attestation: Allergies include: Review of patient's allergies indicates not on file. There is no problem list on file for this patient. No outpatient prescriptions have been marked as taking for the 03/30/12 encounter (Office Visit) with Jose Purvis MD. No past medical history on file. No past surgical history on file. No family history on file. Patient does not have a smoking history on file. He does not have any smokeless tobacco history on file. Recent HbA1c: No results found for this basename: HGBA1C Base Ophthalmology Exam Visual Acuity Right Left Both Dist cc 20/20 +1 20/20 -1 Method: Snellen - Linear Correction: Glasses Tonometry Right Left Pressure 16 12 Method: Applanation Time: 13:47 Pupils Dark React APD Right 4 Brisk None Left 3 Brisk None Visual Veloz Right Left Result Full Full Extraocular Movement Right Left Result Full Full Main Ophthalmology Exam External Exam Right Left External neoplasn brow RUL Normal Slit Lamp Exam Right Left Lids/Lashes Normal Normal, upper and lower fornicies swept. Conjunctiva/Sclera White and quiet 2+ Injection Cornea Clear metal foriegn body at 10:00 close to limbus, jeronimo neg Anterior Chamber Deep and quiet Trace Cell, Trace Flare Iris Round and reactive Round and reactive Lens Clear Clear Vitreous Normal Normal Fundus Exam Right Left Disc Normal Normal C/D Ratio 0.4 0.4 Macula Normal Normal Vessels Normal Normal Neuro/Psych Oriented x3: Yes Mood/Affect: Normal DIAGNOSTIC TESTS: IMPRESSION & PLAN: Usman was seen today for eye problem. Diagnoses and associated orders for this visit: Corneal foreign body: Removed at slit lamp with needle and monica. Start erythromycin QID. 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 Pt elects to observe. Other Orders - erythromycin (ROMYCIN) 5 mg/gram (0.5 %) ophthalmic ointment; Place 1 cm into the left eye 4 times daily. I have reviewed the patient's past medical, family, social and surgical history. I have also reviewed the patient's medications, allergies, and problem list. I performed my own HPI and have reviewed the tech's ROS as well. I personally completed this exam myself. Jose Purvis MD Signature: Dawn Christiansen The patient was instructed to call our office or go to emergency room if worse vision, worse symptoms, or new/other concerns arise. documented in this encounter Miscellaneous Notes * Scanned Note-Null - OSTEOPATHIC RESIDENT, SCAN 2 - 03/31/2012 1016 EST documented in this encounter Plan of Treatment Not on file documented as of this encounter Visit Diagnoses Diagnosis Corneal foreign body- Primary Foreign body in cornea Senile nuclear sclerosis documented in this encounter Eye Exam Visual Acuity (Snellen - Linear) Right eye Left eye Dist cc 20/20 +1 20/20 -1 Correction: Glasses Tonometry (Applanation, 13:47) Right eye Left eye Pressure 16 12 Pupils Dark React APD Right eye 4 Brisk None Left eye 3 Brisk None Visual Veloz Right eye Left eye Full Full Extraocular Movement Right eye Left eye Full Full Neuro/Psych Oriented x3: Yes Mood/Affect: Normal External Exam Right eye Left eye External neoplasn brow RUL Normal Slit Lamp Exam Right eye Left eye Lids/Lashes Normal Normal, upper an d lower fornicies swept. Conjunctiva/Sclera White and quiet 2+ Injection Cornea Clear metal foriegn lexie dy at 10:00 close to limbus, jeronimo neg Anterior Chamber Deep and quiet Trace Cell, Tra ce Flare Iris Round and reactive Round and ashley ctive Lens Clear Clear Vitreous Normal Normal Fundus Exam Right eye Left eye Disc Normal Normal C/D Ratio 0.4 0.4 Macula Normal Normal Vessels Normal Normal Care Teams Airport Planner Relationship Specialty Start Date End Date None, Provider PCP - General 03/30/12 documented as of this encounter
--- OUTSIDE RECORDS SUMMARY | 2024-02-16 16:34 | XMS_ITS | Encounter Summary ---
Author Organization [facility] Address [facility] [place] [address] Care Team Providers Care Visual Specialist Name Role Phone Georgette Mercedes APRN Primary Care Provider + [phone] Reason for Visit * Consultation (Urgent) - Authorized Specialty Diagnoses / Procedures Referred By Contlexx t Referred To Contact Urology Diagnoses Elevated prostate specific antigen (PSA) PATIENT NOW NEEDS TARGETED [place]SI[place] [facility] [place] Arabella Neal APRN [address] [place] [address] [facility] [place] [address] Referral ID Status Reason Start Date Expiration Date Visits Requested Visits Authorized [id number] Authorized Consult, Test & Treat PCP Updated and/or Approved 10/15/2023 10/14/2024 6 6 Encounter Details Date Type Department Care Team (Late st Contact Info) Description 11/12/2023 10:30 AM EDT Procedure [place] [address] Frantz Chiu MD [facility] [place] [address] Elevated PSA Social History Tobacco Use Types Packs/Day Years Used Date Smoking Tobacco: Never Assessed Sex and Gender Information Value Date Recorded Sex Assigned at Not on file Gender Identity Not on file Sexual Orientation Not on file documented as of this encounter Last Filed Vital Signs Vital Sign Reading Time Taken Comments Blood Pressure 158/95 11/12/2023 10:08 AM EDT Pulse - - Temperature - - Respiratory Rate - - Oxygen Saturation - - Inhaled Oxygen Concentration - - Weight 93 kg (205 lb) 11/12/2023 10:08 AM EDT Height 185.4 cm (6' 1) 11/12/2023 10:08 AM EDT Body Mass Index 27.05 11/12/2023 10:08 AM EDT documented in this encounter Patient Instructions * Patient Instructions* Stephanie Danielle, RN - 11/12/2023 10:30 AM EDT PROSTATE BIOPSY DISCHARGE INFORMATION You will get a call next week with your biopsy pathology. Your pathology result may be released to your [facility] account before we have had a chance to contact you. You should feel free to check your [facility] if you would like to see if your pathology has been release. However, by doing so, you may receive your prostate biopsy results PRIOR to us discussing them with you. If you are not comfortable with receiving your pathology prior to our discussion, please de mansoor from looking at your biopsy results until we can contact you. You should call your doctor if you experience any of the following: You see blood in your urine, bowel movements, or semen outside of the timeframe listed below. You have a temperature greater than 101.5 degrees. You start to pass large clots of blood in your urine or it turns the color of tomato juice. You are having increasing pain. Your doctor may be reached at weekdays from 8 AM to 5 PM. If you should develop any of these symptoms after these hours, please call the hospital cardiograph operator at and ask to have the Urology Resident paged or report to the Emergency Department. What do I need to watch out for after the biopsy? You will almost certainly have some blood in your urine. This will generally be gone within 48 hours. However, it may last on and off for up to two weeks. You will almost certainly have some blood in your bowels. This will generally be gone within 48 hours. However, it may last on and off for up to two weeks. You will almost certainly have some blood in your semen or sperm. This may last on and off for up to six weeks. If you have been instructed to take an antibiotic in addition to the antibiotic given to you on theclinic day, please finish the remainder of any prescription ordered. Are there any restrictions after the prostate biopsy? You should take it easy after the biopsy until the blood clears in your urine and stool. Drink extra fluids. We suggest no heavy lifting, straining, or sports until after you stop seeing blood in theurine or stool. You should not have sexual activity for 48 hours after the biopsy. As long as you feel okay, you should be able to drive yourself home from the biopsy. We recommend that you bring someone with you but this is not absolutely necessary. You may resume aspirin and other medications containing aspirin or NSAIDS (Motrin, Advil, naprosyn,etc.) one week after your biopsy. If you are on a blood thinner, such as Coumadin, heparin, or fragmin, please contact your Primary Care Provider after the procedure to see when they wish you to resume medications. It is important you do this because some medications will require a blood test as well. When will I get the results of the biopsy? The biopsy needs to be processed and examined by a pathologist. In general, this takes about a week. Your doctor will then either see you in the office or call you on the telephone to give you the results. If you have not heard a result within 10 days of your biopsy, please call your doctor. What happens if I am found to have prostate cancer? If you are found to have prostate cancer, your doctor will discuss what this means for you. Prostate cancer is very treatable and, in most cases, there are several good treatment options. You will begiven or sent a package of information about the treatment of prostate cancer. An appointment will be made for a follow-up visit one to two weeks after the biopsy result is given to you in order to discuss all the issues in more detail and arrange a treatment plan. What happens if the biopsy does not show prostate cancer? Your doctor will discuss the results of the biopsy with you. Your doctor will give you a recommendation regarding any necessary follow up. documented in this encounter Progress Notes * Frantz Chiu MD - 11/12/2023 10:30 AM EDT UROLOGY NEW PATIENT VISIT CC: elevated PSA HPI: 67 yo male referred to me by Arabella Neal APRN for an elevated PSA and suspicious MRI findingsconcerning for prostate cancer. He denies any bothersome LUTS or hematuria. He is not sexually active for the last 10 years. No family history of prostate cancer. PSA hx: 06/02 - 28.3 12/01 - 18.8 PMH: HTN, basal cell cancer PSH: Right hip replacement, colonoscopy, tonsillectomy Allergies: NKDA SH: single (). No children. 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 FH: father had Hodgkin's Lymphoma ROS: General Health: GENERAL: Denies fevers, sweats, chills, anorexia, denies weight changes. 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 HEENT: Denies headaches and vision changes. RESP: Denies cough or breathing difficulties. CVS: Denies chest pain and GRULLON. No claudication. GI: Denies nausea/vomiting/diarrhea/constipation. Normal appetite and bowels. : see hpi MUSCULOSKELETAL: Denies joint or muscle aches. Denies back pain. SKIN: Denies rashes. HEME: Denies bleeding tendencies, bruisability. EXAMINATION: Patient Vitals for the past 24 hrs: BP 11/12/23 1008 (!) 158/95 GENERAL: Well appearing male in NAD. Healthy appearance. HEENT: Atraumatic, normocephalic. Anicteric sclera. MMM. RESPIRATORY: Unlabored respirations with no audible wheezing. RECTAL: The anus and perineum are normal. Rectal sphincter tone is normal. Prostate is smooth, no nodules, approximately 40g NEUROLOGIC: Alert and oriented x 3. EXTREMITIES: Warm and well perfused with no pitting edema. LABS: Urine dip negative IMAGING: EXAMINATION: MRI PELVIS WWO (PROSTATE) CLINICAL HISTORY: elevated psa R97.20, Elevated prostate specific antigen (PSA) HAS PATIENT HAD PREVIOUS BIOPSY?: No MOST RECENT PSA LEVEL: 28.3 on 06/02/2023 TECHNIQUE: Multiparametric MRI of the prostate prior to and following IV administration of 20mL of Dotarem contrast. QUALITY: Limited by susceptibility artifact, compromising the diffusion sequence. COMPARISON: None FINDINGS: Prostate dimensions: 5.0 x 3.3 x 4.5 cm. Estimated prostate volume: 39cc (X x Y x Z x 0.52) PSA density: 0.72 (PSA/prostate volume >0.15 susp, 0.25 highly susp) Peripheral zone: Lesion 1. The base and mid gland, right greater than left (3.0 x 2.5 x 0.9 cm) T2: Circumscribed, homogenous moderately hypointense mass PI-RADs: 5. DWI: Focal markedly hypointense on ADC and markedly hyperintense on high b-value DWI PI-RADs: 5. DCE-MRI: (+) focal early enhancement which corresponds to the suspicious finding on T2WI and/or DWI. Combined PI-RADs: 5. Lesion 2. Left anterior apex (0.7 cm) T2: Circumscribed, homogenous moderately hypointense focus PI-RADs: 4. DWI: Focal markedly hypointense on ADC and markedly hyperintense on high b-value DWI PI-RADs: 4. DCE-MRI: (+) focal enhancement contemporaneous with enhancement of adjacent normal prostatic tissues, corresponds to the suspicious finding on T2WI and/or DWI. Combined PI-RADs: 4. Transition zone: Lesion 3: Left base (1.1 x 0.9 x 0.9 cm) T2: Mostly encapsulated nodule PI-RADs: 2. DWI: Focal markedly hypointense on ADC and markedly hyperintense on high b-value DWI PI-RADs: 4. DCE-MRI: (+) focal early enhancement which corresponds to the suspicious finding on T2WI and DWI. Combined PI-RADs: 3. Extraprostatic disease: Seminal vesicle involvement:No Lymphadenopathy:No Sphincter involvement:No Bladder involvement:No Osseous metastases: No MRI-derived Extraprostatic extension risk: Lesion 1: Grade 2: 38.2% (Curvilinear contact length and capsular bulge/irregularity) Other findings: right hip arthroplasty IMPRESSION Lesion 1 PZ: PI-RADS 5. T2 location: axial series 8001, image 20; sagittal series 65521, image 19. Lesion 2 PZ: PI-RADS 4. T2 location: axial series 8001, image 26; sagittal series 44756, image 15. Lesion 3 TZ: PI-RADS 3. T2 location: axial series 8001, image 16; sagittal series 59392, image 15. ASSESSMENT/PLAN: Elevated PSA and suspicious MRI findings concerning for prostate cancer. I explained to him the findings and the role of targeted prostate biopsy. I explained the risks of biopsy, including bleeding,infection and pain/discomfort. He opted to proceed with a biopsy. Procedure Note Procedure: Transrectal ultrasound and prostate biopsy, URONAV guided Surgeon: Frantz Chiu MD Preoperative Diagnosis: Abnormal PSA/Free PSA Abnormal Rectal Exam Post Operative Diagnosis: Successful Biopsy Complications: None Estimated Blood Loss: <10cc Procedure: A time out procedure was completed using the standard checklist. It was confirmed the patient had a urinanalysis that did not show evidence of a urinary infection prior to the biopsy. It was confirmed that the patient took Levaquin 500mg po ~ 1 hour ago. The TRUS probe was inserted into the rectum and the prostate imaged in the sagittal and transverse dimensions. Prostate volume was []cc. The prostate was homogeneous. Prostate calcifications were observed at the junction of the peripheral and transition zones. Hypoechoic areas: PZ right base/mid, PZ left apex, TZ left base Rectum, periprostatic structures, visualized areas of the bladder, vas deferens and seminal vesicles all appeared normal Prostatic anaesthesia was achieved in the standard fashion. A series of prostatic biopsies were obtained from the lateral apex, mid,and base as well as mid sagittal apex, mid and base. Biopsies were obtained from both the right and left side of the prostate. Additional biopsies: 3, 2, 2 from each targeted area A total of 19 biopsies were obtained. The patient tolerated the procedure without difficulty. I will contact him in about a weeks time with the results. He understands that if he does not hear from me or has any problems to contact my office. documented in this encounter Plan of Treatment Upcoming Encounters Date Type Department Care Team (Late st Contact Info) Description 04/13/2024 3:00 PM EST Telephone Radiation Oncology at [address] [phone] Jose Ferraro [facility] 04/20/2024 8:30 AM EDT Scheduled View Only Radiation Oncology at [address] [phone] Jose Nurse [facility] 04/20/2024 9:00 AM EDT Procedure visit Radiation Oncology at [address] [phone] David Barker MD [address] [place] [address] DR RADIATION ONCOLOGY [place], [place] [address] 04/20/2024 9:00 AM EDT Scheduled View Only Radiation Oncology at [address] [phone] 04/22/2024 3:30 PM EDT Infusion Hematology Oncology at [address] [phone] 04/25/2024 10:10 AM EDT [place] [phone] David Barker MD [address] [place] [address] DR RADIATION ONCOLOGY [place], [place] [address] 04/25/2024 11:30 AM EDT Scheduled View Only [place] [phone] 04/25/2024 12:00 PM EDT Ancillary Appointment [place] [phone] David Barker MD [address] [place] [address] DR RADIATION ONCOLOGY [place], [place] [id number] 04/25/2024 12:00 PM EDT Scheduled View [place] [phone] Scheduled Orders Name Type Priority Associated Diagnoses Orde r Schedule PSA (Ultrasensitive) Lab Routine Elevated PSA Expected: 10/23/2023 (Approximate), Expires: 10/22/2024 documented as of this encounter Results * US Guided Biopsy Prostate with Uronav Fusion (11/12/2023 11:57 AM EDT) WORKSTATION ID [id number] [facility] Anatomical Region Laterality Modality Pelvis Ultrasound 11/12/2023 11:2 3 AM EDT Impressions 11/12/2023 1:03 PM EDT Prostate Summary Transrectal ultrasound of the prostate was performed. Hypoechoic area seen: base and mid gland peripheral zone, ??left anterior apex peripheral zone, left base transitional zone Prostate Biopsy Summary Ultrasound guidance was provided for Dr. Chiu of the section of Urology who performed multiple biopsies in the [address] [place] [address] location. UroNav fusion was used for this procedure. Please see above. Electronically signed by: Harvinder Carlton MD, [facility] ([phone]), at 11/12/2023 12:54 PM Thank you for letting us participate in the care of this patient. If you are a health care provider and have any questions regarding this report, please contact the number above. For patients who have questions, please contact the health post anesthesia care unit nurse that requested your imaging first. ?Harvinder Carlton, Staff Physician Electronically Signed Final Report ?? 11/12/2023 01:02 pm Narrative 11/12/2023 1:03 PM EDT Male Pelvis ? (Signed Final 11/12/2023 01:02 pm) PATIENT INFO: ID #: ? [id number] ?: ??[birth year] (67 yrs)(M) Name: ? USMAN HAY ?Visit Date: 11/12/2023 11:23 am PERFORMED BY: Attending: ?Brandt LAMBERT, Harvinder Padilla Performed By: ? Aishwarya Bernal RDMS Referred By: ?FRANTZ CHIU Location: ? [facility] SERVICE(S) PROVIDED: UTRBXURO - Prostate Biopsy with UroNav Fusion ? [id number], [id number] - [id number] INDICATIONS: PI-RADS 5, 4, 3 TECHNIQUE/SCAN QUALITY: Technique: ?Transducer #:[id number] COMPARISON: MRI Pelvis: 10/13/23 --------- PROSTATE: --------- Size (cm) ?L: ??6.2 ? AP: ??3.4 ? TV: ??4.1 Vol (ml): ?45.3 Comment: ?Hypoechoic area seen: base and mid gland ? peripheral zone, ??left anterior apex peripheral zone, ? left base transitional zone ADDITIONAL FINDINGS: Template biopsies were performed: 6 biopsies from the right; 6 biopsies from the left Additional biopsies were obtained through the suspicious area(s) using UroNav fusion: ??3 biopsies from lesion 1, 2 biopsies from lesion 2, 2 biopsies from lesion 3 Procedure Note Harvinder Carlton MD - 11/12/2023 Male Pelvis (Signed Final 11/12/2023 01:02 pm) PATIENT INFO: ID #: [id number] : 53 (67 yrs)(M) Name: USMAN HAY Visit Date: 11/12/2023 11:23 am PERFORMED BY: Attending: Harvinder Carlton MD Performed By: Aishwarya Bernal RDMS Referred By: FRANTZ CHIU Location: [facility] SERVICE(S) PROVIDED: UTRBXURO - Prostate Biopsy with UroNav Fusion [id number], [id number] - [id number] INDICATIONS: PI-RADS 5, 4, 3 TECHNIQUE/SCAN QUALITY: Technique: Transducer #:[id number] COMPARISON: MRI Pelvis: 10/13/23 --------- PROSTATE: --------- Size (cm) L: 6.2 AP: 3.4 TV: 4.1 Vol (ml): 45.3 Comment: Hypoechoic area seen: base and mid gland peripheral zone, left anterior apex peripheral zone, left base transitional zone ADDITIONAL FINDINGS: Template biopsies were performed: 6 biopsies from the right; 6 biopsies from the left Additional biopsies were obtained through the suspicious area(s) using UroNav fusion: 3 biopsies from lesion 1, 2 biopsies from lesion 2, 2 biopsies from lesion 3 IMPRESSION Prostate Summary Transrectal ultrasound of the prostate was performed. Hypoechoic area seen: base and mid gland peripheral zone, left anterior apex peripheral zone, left base transitional zone Prostate Biopsy Summary Ultrasound guidance was provided for Dr. Chiu of the section of Urology who performed multiple biopsies in the clinic location. UroNav fusion was used for this procedure. Please see above. Electronically signed by: Harvinder Carlton MD, [facility] ([phone]), at 11/12/2023 12:54 PM Thank you for letting us participate in the care of this patient. If you are a health care provider and have any questions regarding this report, please contact the number above. For patients who have questions, please contact the health post anesthesia care unit nurse that requested your imaging first. Harvinder Carlton, Staff Physician Electronically Signed Final Report 11/12/2023 01:02 pm Frantz Chiu MD IM US PROC ORDERA BLES documented in this encounter Visit Diagnoses Diagnosis Elevated PSA Elevated prostate specific antigen (PSA) Elevated PSA Elevated prostate specific antigen (PSA) documented in this encounter Administered Medications Inactive Administered Medications - up to 3 most recent administrations Medication Order MAR Action Action Date Dose Rate Site levoFLOXacin (Levaquin) tablet 500 mg 500 mg, Oral, ONCE, 1 dose, On Dolores 11/12/23 at 1030, Give this medication 2 hours BEFORE, or 6 hours AFTER products with multivalent cations (e.g. Calcium, Iron, Zinc, Magnesium, Aluminum). Do not coadminister, Routine Given 11/12/2023 10:08 AM EDT 500 mg documented in this encounter Care Teams Visual Specialist Relationship Specialty Start Date End Date Georgette Mercedes APRN [address] [place] [address] PCP - General Internal Medicine 10/23/23 02/15/24 documented as of this encounter
--- OUTSIDE RECORDS SUMMARY | 2024-02-16 16:34 | XMS_ITS | Encounter Summary ---
[place] [address] Care Team Providers Care Forestry Pilot Name Role Phone Georgette Mercedes APRN Primary Care Provider Reason for Referral * Consultation (Urgent) - Authorized Specialty Diagnoses / Procedures Referred By Contac t Referred To Contact Urology Diagnoses Elevated prostate specific antigen (PSA) PATIENT NOW NEEDS TARGETED PROSTATE BIOPSIES AT [facility] [place] Arabella Neal, CLINICAL MASSAGE THERAPIST [address] [place] [address] [facility] [place] [address] Referral ID Status Reason Start Date Expiration Date Visits Requested Visits Authorized [id number] Authorized Consult, Test & Treat PCP Updated and/or Approved 10/15/2023 10/14/2024 6 6 Encounter Details Date Type Department Care Team (Latest Contact Info) Description 10/23/2023 Transcribe Orders eDH Incoming Referrals [phone] Georgette Mercedes APRN [address] [place], [place] [id number] Elevated prostate specific antigen (PSA) Social History Tobacco Use Types Packs/Day Years [...] PM EST Telephone Radiation Oncology at [address] [phone] Rad Nurse Waqas 04/20/2024 8:30 AM EDT Scheduled View Only Radiation Oncology at [address] [phone] Rad Nurse Waqas 04/20/2024 9:00 AM EDT Procedure visit Radiation Oncology at [address] [phone] David Barker MD [address] [place] [address] [place] [address] 04/20/2024 9:00 AM EDT Scheduled View Only Radiation Oncology at [address] [phone] 04/22/2024 3:30 PM EDT Infusion Hematology Oncology at [address] [phone] 04/25/2024 10:10 AM [place] [address] David Barker MD [address] [place] [address] [place] [address] 04/25/2024 11:30 AM EDT Scheduled View [place] [address] 04/25/2024 12:00 PM EDT Ancillary Appointment [place] [address] David Barker MD [address] [place] [address] [place] [address] 04/25/2024 12:00 PM EDT Scheduled View [place] [address] Scheduled Referrals Name Type Priority Associated Diagnoses Orde r Schedule Referral to Urology Outpatient Referral Urgent Elevated prostate specific antigen (PSA) Ordered: 10/23/2023 documented as of this encounter Visit Diagnoses Diagnosis Elevated prostate specific antigen (PSA) documented in this encounter Care Teams Forestry Pilot Relationship Specialty Start Date End Date Georgette Mercedes APRN [address] [place] [address] PCP - General Internal Medicine 10/23/23 02/15/24 documented as of this encounter
--- OUTSIDE RECORDS SUMMARY | 2024-02-16 16:34 | XMS_ITS | Encounter Summary ---
Author Organization [facility] Address [facility] [place] [address] Care Team Providers Care Sorority Mother Name Role Phone Georgette Mercedes JUANITA Primary Care Provider Encounter Details Date Type Department Care Team (Latest Contact Info) Description 11/12/2023 9:38 AM EDT - 11/12/2023 11:59 PM EDT Hospital Encounter [place] [phone] Frantz Chiu MD [facility] [place] [address] Elevated PSA Discharge Disposition: Home Social History Tobacco Use [...] 3:00 PM EST Telephone Radiation Oncology at [address] [phone] Jose Ferraro Waqas 04/20/2024 8:30 AM EDT Scheduled View Only Radiation Oncology at [address] [phone] St Waqas Hamm 04/20/2024 9:00 AM EDT Procedure visit Radiation Oncology at [address] [phone] David Barker MD [address] [place] [address] [place] [address] 04/20/2024 9:00 AM EDT Scheduled View Only Radiation Oncology at [address] [phone] 04/22/2024 3:30 PM EDT Infusion Hematology Oncology at [address] [phone] 04/25/2024 10:10 AM EDT App[place] [phone] David Barker MD [address] [place] [address] [place] [address] 04/25/2024 11:30 AM EDT Scheduled View Only Radiation [place] [address] 04/25/2024 12:00 PM EDT Ancillary Appointment Radiation [place] [address] David Barker MD [address] [place] [address] [place] [address] 04/25/2024 12:00 PM EDT Scheduled View Only [place] [address] documented as of this encounter Procedures Procedure Name Priority Date/Time Associated Diagnosis Comments US GUIDED BIOPSY PROSTATE WITH URONAV FUSION Routine 11/12/2023 11:57 AM EDT Elevated PSA SURGICAL PATHOLOGY, PROSTATE BIOPSIES Routine 11/12/2023 11:12 AM EDT documented in this encounter Results * US Guided Biopsy Prostate with Uronav Fusion (11/12/2023 11:57 AM EDT) WORKSTATION ID [id number] RAD Anatomical Region Laterality Modality Pelvis Ultrasound 11/12/2023 [...] Urology who performed multiple biopsies in the [address] [place] [address] location. UroNav fusion was used for this procedure. Please see above. Electronically signed by: Harvinder Carlton MD, [facility] ([phone]), at 11/12/2023 12:54 PM Thank you for letting us participate in the care of this patient. If you are a health care provider and have any questions regarding this report, please contact the number above. For patients who have questions, please contact the health animal care service worker that requested your imaging first. ?Harvinder Carlton, Staff Physician Electronically Signed Final Report ?? 11/12/2023 01:02 pm Narrative 11/12/2023 1:03 PM EDT Male Pelvis ? (Signed Final 11/12/2023 01:02 pm) PATIENT INFO: ID #: ? [id number] ?: ??[birth year] (67 yrs)(M) Name: ? FREDERICK HAY ?Visit Date: 11/12/2023 11:23 am PERFORMED BY: Attending: ?Harvinder Cralton MD Performed By: ? Dolores OWENS Aishwarya Referred By: ?FRANTZ CHIU Location: ? [place] SERVICE(S) PROVIDED: [id number] - Prostate Biopsy with UroNav Fusion ? [id number] - [id number] INDICATIONS: PI-RADS 5, 4, 3 TECHNIQUE/SCAN QUALITY: [...] 11/12/2023 01:02 pm) PATIENT INFO: ID #: [id number] : [birth year] (67 yrs)(M) Name: FREDERICK HAY Visit Date: 11/12/2023 11:23 am PERFORMED BY: Attending: Harvinder Carlton MD Performed By: Aishwarya Bernal RDMS Referred By: FRANTZ CHIU Location: [place] SERVICE(S) PROVIDED: UTRBXURO - Prostate Biopsy with UroNav Fusion [id number] - [id number] INDICATIONS: PI-RADS 5, 4, 3 TECHNIQUE/SCAN QUALITY: [...] Urology who performed multiple biopsies in the [address] [place] [address] location. UroNav fusion was used for this procedure. Please see above. Electronically signed by: Harvinder Carlton MD, [facility] ([phone]), at 11/12/2023 12:54 PM Thank you for letting us participate in the care of this patient. If you are a health care provider and have any questions regarding this report, please contact the number above. For patients who have questions, please contact the health animal care service worker that requested your imaging first. Harvinder Carlton, Staff Physician Electronically Signed Final Report 11/12/2023 01:02 pm Frantz Chiu MD IMG US PROC ORDERA BLES * (ABNORMAL) Surgical Pathology, Prostate Biopsies (11/12/2023 11:12 AM EDT) Case Report Surgical Pathology Report ? Case: [id number] ? Authorizing Provider: ??Frantz Chiu MD ?Collected: ? 11/12/2023 1112 ? Ordering Location: ? Ultrasound at [facility] ? Received: ?11/12/2023 1226 ? Pathologist: ? Dinora, Carpenter, MD ? Specimens: ?? A) - Prostate, Right Lateral Base ? B) - Prostate, Right Lateral Mid ? C) - Prostate, Right Lateral [place] ? D) - Prostate, Right Medial Base ? E) - Prostate, Right Medial Mid ? F) - Prostate, Right Medial [place] ? G) - Prostate, Left Lateral Base ? H) - Prostate, Left Lateral Mid ? I) - Prostate, Left Lateral [place] ? J) - Prostate, Left Medial Base ? K) - Prostate, Left Medial Mid ? L) - Prostate, Left Medial [place] ? M) - Prostate, MRI Lesion Number 1, X3 ? N) - Prostate, MRI Lesion Number 2, X3 ? O) - Prostate, MRI Lesion Number 3, X3 ? 11/18/2023 4:[address] [facility] Final Diagnosis A. Prostate, Right Lateral Base, Biopsy: - Prostatic adenocarcinoma, Grade Group 3 ([place] score 4+3=7), with cribriform features, involving 90% of a single core. - Mio pattern 4 represents 80% of tumor. - Perineural invasion is present. B. Prostate, Right Lateral Mid, Biopsy: - Prostatic adenocarcinoma, Grade Group 5 ([place] score 4+5=9), with cribriform features, involving 80% of a single core. - [place] pattern 5 represents 10% of tumor. C. Prostate, Right Lateral [place], Biopsy: - Prostatic adenocarcinoma, Grade Group 2 ([place] score 3+4=7), involving 50% of the single core. - Mio pattern 4 represents 10% of tumor. - Perineural invasion is present. D. Prostate, Right Medial Base, Biopsy: - Prostatic adenocarcinoma, Grade Group 3 ([place] score 4+3=7), with cribriform features, discontinuously involving 80% of a single core. - Mio pattern 4 represents 60% of tumor. - Perineural invasion present. E. Prostate, Right Medial Mid, Biopsy: - Prostatic adenocarcinoma, Grade Group 5 (Mio score 4+5=9), with cribriform features, involving 100% of a single core. - [place] pattern 5 represents 20% of tumor. F. Prostate, Right Medial [place], Biopsy: - Prostatic adenocarcinoma, Grade Group 5 ([place] score 4+5=9), with cribriform features, involving 60% of the single core. - Mio pattern 5 represents 10% of tumor. - Perineural invasion present. G. Prostate, Left Lateral Base, Biopsy: - Prostatic adenocarcinoma, Grade Group 2 ([place] score 3+4=7), with cribriform features, involving 70% of the single core. - Mio pattern 4 represents 40% of tumor. - Perineural invasion present. H. Prostate, Left Lateral Mid, Biopsy: - Prostatic adenocarcinoma, Grade Group 3 ([place] score 4+3=7), with cribriform features, involving 80% of a single core. - Mio pattern 5 represents 10% of tumor. I. Prostate, Left Lateral [place], Biopsy: - Prostatic adenocarcinoma, Grade Group 5 ([place] score 4+5=9), with cribriform features, involving 80% of a single core. - [place] pattern 5 represents 10% of tumor. J. Prostate, Left Medial Base, Biopsy: - Prostatic adenocarcinoma, Grade Group 3 ([place] score 4+3=7), with cribriform features, involving 90% of a single core. - Mio pattern 4 represents 70% of tumor. - Perineural invasion is present. K. Prostate, Left Medial Mid, Biopsy: - Prostatic adenocarcinoma, Grade Group 5 ([place] score 4+5=9), involving 90% of two core fragments. - [place] pattern 5 represents 10% of tumor. - Perineural invasion is present. L. Prostate, Left Medial [place], Biopsy: - Prostatic adenocarcinoma, Grade Group 2 (Mio score 3+4=7), with cribriform features, involving 60% of the single core. - Mio pattern 4 represents 30% of tumor. M. Prostate, MRI Lesion Number 1, X3 Biopsy: - Prostatic adenocarcinoma, Grade Group 5 (Mio score 4+5=9), with cribriform features, involving 3 out of 3 cores. (100%, 90% and 90%). - [place] pattern 5 represents 10% of tumor. - Perineural invasion is present. N. Prostate, MRI Lesion Number 2, X3 Biopsy: - Prostatic adenocarcinoma, Grade Group 5 ([place] score 4+5=9), with cribriform features, involving 2 out of 2 cores. (70%, 20%). - [place] pattern 5 represents 20% of tumor. - Perineural invasion is present. O. Prostate, MRI Lesion Number 3, X3 Biopsy: - Prostatic adenocarcinoma, Grade Group 2 (Mio score 3+4=7), involving two of two cores (20%, 20%). - [place] pattern 4 represents 30% of tumor. 11/18/2023 4:[address] [facility] Clinical Information ELEVATED PSA 11/18/2023 4:[address] [facility] Gross Description A. Prostate, Right Lateral Base, . A - Labeled/Fixative: Prostate right lateral base, formalin. Quantity/Size: Single, 1.6 x 0.1 cm Tissue Description: Barber-pink needle core biopsy. Sections/Processin g: Entirely submitted in 1 cassette labeled A1. pps B. Prostate, Right Lateral Mid, . B - Labeled/Fixative: Prostate right lateral mid, formalin. Quantity/Size: Single, 1.6 x 0.1 cm Tissue Description: Barber-pink needle core biopsy. Sections/Processin g: Entirely submitted in 1 cassette labeled B1. pps C. Prostate, Right Lateral [place], . C - Labeled/Fixative: Prostate right lateral apex, formalin. Quantity/Size: Single, 1.6 x 0.1 cm Tissue Description: Barber-pink needle core biopsy. Sections/Processin g: Entirely submitted in 1 cassette labeled C1. pps D. Prostate, Right Medial Base, . D - Labeled/Fixative: Prostate right medial base, formalin. Quantity/Size: Single, 1.8 x 0.1 cm Tissue Description: Barber-pink needle core biopsy. Sections/Processin g: Entirely submitted in 1 cassette labeled D1. pps E. Prostate, Right Medial Mid, . E - Labeled/Fixative: Prostate right medial mid, formalin. Quantity/Size: Single, 1.8 x 0.1 cm Tissue Description: Barber-pink needle core biopsy. Sections/Processin g: Entirely submitted in 1 cassette labeled E1. pps F. Prostate, Right Medial [place], . F - Labeled/Fixative: Prostate right medial apex, formalin. Quantity/Size: Single, 1.6 x 0.1 cm Tissue Description: Barber-pink needle core biopsy. Sections/Processin g: Entirely submitted in 1 cassette labeled F1. pps G. Prostate, Left Lateral Base, . G - Labeled/Fixative: Prostate left lateral base, formalin. Quantity/Size: Single, 2 x 1.0 cm Tissue Description: Barber-pink needle core biopsy. Sections/Processin g: Entirely submitted in 1 cassette labeled G1. pps H. Prostate, Left Lateral Mid, . H - Labeled/Fixative: Prostate left lateral mid, formalin. Quantity/Size: Single, 1.8 x 0.1 cm Tissue Description: Barber-pink needle core biopsy. Sections/Processin g: Entirely submitted in 1 cassette labeled H1. pps I. Prostate, Left Lateral [place], . I - Labeled/Fixative: Prostate left lateral apex, formalin. Quantity/Size: Single, 1.4 x 0.1 cm Tissue Description: Barber-pink needle core biopsy. Sections/Processin g: Entirely submitted in 1 cassette labeled I1. pps J. Prostate, Left Medial Base, . J - Labeled/Fixative: Prostate left medial base, formalin. Quantity/Size: Single, 1.4 x 0.1 cm Tissue Description: Barber-pink needle core biopsy. Sections/Processin g: Entirely submitted in 1 cassette labeled J1. pps K. Prostate, Left Medial Mid, . K - Labeled/Fixative: Prostate left medial mid, formalin. Quantity/Size: Single, 2.2 x 0.1 cm Tissue Description: Barber-pink needle core biopsy. Sections/Processin g: Entirely submitted in 1 cassette labeled K1. pps L. Prostate, Left Medial [place], . L - Labeled/Fixative: Prostate left medial apex, formalin. Quantity/Size: Single, 1.6 x 0.1 cm Tissue Description: Barber-pink needle core biopsy. Sections/Processin g: Entirely submitted in 1 cassette labeled L1. pps M. Prostate, MRI Lesion Number 1, X3. M - Labeled/Fixative: Prostate, MRI lesion #1, formalin. Quantity/Size: Three, ranging from 1.2 x 0 point centimeters to 1.6 x 0.1 cm Tissue Description: Barber-pink needle core biopsies. Sections/Processin g: Entirely submitted in 1 cassette labeled M1. pps N. Prostate, MRI Lesion Number 2, X3. N - Labeled/Fixative: Prostate MRI lesion #2, formalin. Quantity/Size: Two, averaging 1.8 x 0.1 cm Tissue Description: Barber-pink needle core biopsies. Sections/Processin g: Entirely submitted in 1 cassette labeled N1. pps O. Prostate, MRI Lesion Number 3, X3. O - Labeled/Fixative: Prostate, MRI lesion #3, formalin. Quantity/Size: Two, averaging 1.4 x 0.1 cm Tissue Description: Barber-pink needle core biopsies. Sections/Processin g: Entirely submitted in 1 cassette labeled O1. pps 11/18/2023 4:[address] [facility] Result Note THIS RESULT REQUIRES PHYSICIAN/VIET FOLLOW UP(A) 11/18/2023 4:[address] [facility] Tissue LESION OF PROSTATE / Unknown 11/12/2023 11:12 AM EDT 11/12/2023 12:26 PM EDT Tissue specimen (specimen) RIGHT LATERAL MIDDLE PERIPHERAL ZONE OF PROSTATE / Unknown 11/12/2023 11:12 AM EDT 11/12/2023 12:26 PM EDT Tissue specimen (specimen) STRUCTURE OF APEX OF PROSTATE / Unknown 11/12/2023 11:12 AM EDT 11/12/2023 12:26 PM EDT Tissue specimen (specimen) RIGHT POSTERIOR BASAL TRANSITION ZONE OF PROSTATE / Unknown 11/12/2023 11:12 AM EDT 11/12/2023 12:26 PM EDT Tissue specimen (specimen) RIGHT POSTERIOR MIDDLE TRANSITION ZONE OF PROSTATE / Unknown 11/12/2023 11:12 AM EDT 11/12/2023 12:26 PM EDT Tissue specimen (specimen) RIGHT POSTERIOR APICAL PART OF TRANSITION ZONE OF PROSTATE / Unknown 11/12/2023 11:12 AM EDT 11/12/2023 12:26 PM EDT Tissue specimen (specimen) STRUCTURE OF LEFT LATERAL LOBE OF PROSTATE / Unknown 11/12/2023 11:12 AM EDT 11/12/2023 12:26 PM EDT Tissue specimen (specimen) STRUCTURE OF LEFT LATERAL LOBE OF PROSTATE / Unknown 11/12/2023 11:12 AM EDT 11/12/2023 12:26 PM EDT Tissue specimen (specimen) STRUCTURE OF LEFT LATERAL LOBE OF PROSTATE / Unknown 11/12/2023 11:12 AM EDT 11/12/2023 12:26 PM EDT Tissue specimen (specimen) LEFT POSTERIOR BASAL TRANSITION ZONE OF PROSTATE / Unknown 11/12/2023 11:12 AM EDT 11/12/2023 12:26 PM EDT Tissue specimen (specimen) LEFT POSTERIOR MIDDLE TRANSITION ZONE OF PROSTATE / Unknown 11/12/2023 11:12 AM EDT 11/12/2023 12:26 PM EDT Tissue specimen (specimen) LEFT POSTERIOR APICAL PART OF TRANSITION ZONE OF PROSTATE / Unknown 11/12/2023 11:12 AM EDT 11/12/2023 12:26 PM EDT Tissue specimen (specimen) LESION OF PROSTATE / Unknown 11/12/2023 11:12 AM EDT 11/12/2023 12:26 PM EDT Tissue specimen (specimen) LESION OF PROSTATE / Unknown 11/12/2023 11:12 AM EDT 11/12/2023 12:26 PM EDT Tissue specimen (specimen) LESION OF PROSTATE / Unknown 11/12/2023 11:12 AM EDT 11/12/2023 12:26 PM EDT Frantz Chiu MD PATHOLOGY/[place] [address] documented in this encounter Visit Diagnoses Diagnosis Elevated PSA Elevated prostate specific antigen (PSA) documented in this encounter Care Teams Sorority Mother Relationship Specialty Start Date End Date Georgette Mercedes APRN [address] [place] [address] PCP - General Internal Medicine 10/23/23 02/15/24 documented as of this encounter
--- OUTSIDE RECORDS SUMMARY | 2024-02-16 16:34 | XMS_ITS | Encounter Summary ---
Author Organization [facility] [place] [address] Care Team Providers Care Brazer Helper Induction Name Role Phone Georgette Mercedes JUANITA Primary Care Provider Reason for Referral * Diagnostic Test (Routine) - Closed Specialty Diagnoses / Procedures Referred By Contac t Referred To Contact Radiology Diagnoses Malignant neoplasm of prostate Procedures NM PET CT PSMA Prostate (Illuccix) Mingo Chiu MD [facility] [place] [address] [place] [address] Referral ID Status Reason Start Date Expiration Date V isits Requested Visits Authorized [id number] Closed Specialty Service Requested 11/20/2023 05/20/2025 1 1 * Consultation (Urgent) - Closed Specialty Diagnoses / Procedures Referred By Contlexx t Referred To Contact Radiation Oncology Diagnoses Malignant neoplasm of prostate Mingo Chiu MD [facility] [place] [address] [facility] Onc Office [address] [place] [phone] Referral ID Status Reason Start Date Expiration Date V isits Requested Visits Authorized [id number] Closed Consult, Test & Treat 11/20/2023 11/19/2024 1 1 Encounter Details Date Type Department Care Team (Late st Contact Info) Description 11/20/2023 [place] [address] Mingo Chiu MD [facility] [place] [address] Social History Tobacco Use Types Packs/Day Years Used Date Smoking Tobacco: Never Assessed Sex and Gender Information Value Date Recorded Sex Assigned at Not on file Gender Identity Not on file Sexual Orientation Not on file documented as of this encounter Miscellaneous Notes * Telephone Encounter - Mingo Chiu MD - 11/20/2023 12:40 PM EDT I contacted the patient to inform him about the pathology which showed GG5 prostate cancer. I recommended to schedule a PET CT scan and Rad Onc appointment. He will also f/u with local Urology. Final Diagnosis A. Prostate, Right Lateral Base, Biopsy: - Prostatic adenocarcinoma, Grade Group 3 (Mio score 4+3=7), with cribriform features, involving 90% of a single core. - Mio pattern 4 represents 80% of tumor. - Perineural invasion is present. B. Prostate, Right Lateral Mid, Biopsy: - Prostatic adenocarcinoma, Grade Group 5 (Mio score 4+5=9), with cribriform features, involving 80% of a single core. - [place] pattern 5 represents 10% of tumor. C. Prostate, Right Lateral [place], Biopsy: - Prostatic adenocarcinoma, Grade Group 2 ([place] score 3+4=7), involving 50% of the single core. - Mio pattern 4 represents 10% of tumor. - Perineural invasion is present. D. Prostate, Right Medial Base, Biopsy: - Prostatic adenocarcinoma, Grade Group 3 ([place] score 4+3=7), with cribriform features, discontinuously involving 80% of a single core. - Mio pattern 4 represents 60% of tumor. - Perineural invasion present. E. Prostate, Right Medial Mid, Biopsy: - Prostatic adenocarcinoma, Grade Group 5 (Mio score 4+5=9), with cribriform features, involving 100% of a single core. - [place] pattern 5 represents 20% of tumor. F. Prostate, Right Medial [place], Biopsy: - Prostatic adenocarcinoma, Grade Group 5 (Mio score 4+5=9), with cribriform features, involving 60% of the single core. - [place] pattern 5 represents 10% of tumor. - Perineural invasion present. G. Prostate, Left Lateral Base, Biopsy: - Prostatic adenocarcinoma, Grade Group 2 ([place] score 3+4=7), with cribriform features, involving 70% of the single core. - Mio pattern 4 represents 40% of tumor. - Perineural invasion present. H. Prostate, Left Lateral Mid, Biopsy: - Prostatic adenocarcinoma, Grade Group 3 (Mio score 4+3=7), with cribriform features, involving 80% of a single core. - Mio pattern 5 represents 10% of tumor. I. Prostate, Left Lateral [place], Biopsy: - Prostatic adenocarcinoma, Grade Group 5 (Mio score 4+5=9), with cribriform features, involving 80% of a single core. - [place] pattern 5 represents 10% of tumor. J. Prostate, Left Medial Base, Biopsy: - Prostatic adenocarcinoma, Grade Group 3 (Mio score 4+3=7), with cribriform features, involving 90% of a single core. - Mio pattern 4 represents 70% of tumor. - Perineural invasion is present. K. Prostate, Left Medial Mid, Biopsy: - Prostatic adenocarcinoma, Grade Group 5 ([place] score 4+5=9), involving 90% of two core fragments. - Mio pattern 5 represents 10% of tumor. - Perineural invasion is present. L. Prostate, Left Medial [place], Biopsy: - Prostatic adenocarcinoma, Grade Group 2 (Mio score 3+4=7), with cribriform features, involving 60% of the single core. - [place] pattern 4 represents 30% of tumor. M. Prostate, MRI Lesion Number 1, X3 Biopsy: - Prostatic adenocarcinoma, Grade Group 5 (Mio score 4+5=9), with cribriform features, involving 3 out of 3 cores. (100%, 90% and 90%). - Mio pattern 5 represents 10% of tumor. - Perineural invasion is present. N. Prostate, MRI Lesion Number 2, X3 Biopsy: - Prostatic adenocarcinoma, Grade Group 5 (Mio score 4+5=9), with cribriform features, involving 2 out of 2 cores. (70%, 20%). - [place] pattern 5 represents 20% of tumor. - Perineural invasion is present. O. Prostate, MRI Lesion Number 3, X3 Biopsy: - Prostatic adenocarcinoma, Grade Group 2 ([place] score 3+4=7), involving two of two cores (20%, 20%). - Mio pattern 4 represents 30% of tumor. documented in this encounter Plan of Treatment Upcoming Encounters Date Type Department Care Team (Late st Contact Info) Description 04/13/2024 3:00 PM EST Telephone Radiation Oncology at [address] [phone] Rad Nurse, [facility] 04/20/2024 8:30 AM EDT Scheduled View Only Radiation Oncology at [address] [phone] Rad Nurse, [facility] 04/20/2024 9:00 AM EDT Procedure visit Radiation Oncology at [address] [phone] David Barker MD [address] [place] [address] DR [facility] [place], [place] [id number] 04/20/2024 9:00 AM EDT Scheduled View Only Radiation Oncology at [address] [phone] 04/22/2024 3:30 PM EDT Infusion Hematology Oncology at [address] [phone] 04/25/2024 10:10 AM [place] [address] David Barker MD [address] [place] [address] DR [facility] [place], [place] [id number] 04/25/2024 11:30 AM EDT Scheduled View [place] [address] 04/25/2024 12:00 PM EDT Ancillary Appointment [place] [phone] David Barker MD [address] [place] [address] [place] [address] 04/25/2024 12:00 PM EDT Scheduled View [place] [address] Scheduled Referrals Name Type Priority Associated Diagnoses Orde r Schedule Referral to Radiation Oncology Outpatient Referral Urgent Malignant neoplasm of prostate Ordered: 11/20/2023 documented as of this encounter Results * NM PET CT PSMA Prostate (Illuccix) (12/28/2023 8:14 AM EST) WORKSTATION ID [id number] [facility] Anatomical Region Laterality Modality Positron [...] Thank you for referring this patient to [facility]. I have personally reviewed the [...] who have questions please contact the health senior care provider that requested your imaging first. ? Narrative [...] nodule in the posterior right lower lobe ([id number]). No adenopathy. Aortic calcifications. ABDOMEN/PELVIS: Heterogeneous tracer [...] Thank you for referring this patient to [facility]. I have personally reviewed the image(s) and the resident's interpretationand agree with the findings, Jose Mehta MD at 12/30/2023 11:47 AM Thank you for letting us participate in the care of this patient. If youare a health care provider and have any questions regarding this report,please contact the number below. For patients who have questions please contactthe health senior care provider that requested your imaging first. Mingo Chiu MD IMG PET ORDERABLES documented in this encounter Visit Diagnoses Diagnosis Malignant neoplasm of prostate Malignant neoplasm of prostate documented in this encounter Care Teams Brazer Helper Induction Relationship Specialty Start Date End Date Georgette Mercedes APRN [address] [place] [address] PCP - General Internal Medicine 10/23/23 02/15/24 documented as of this encounter
--- OUTSIDE RECORDS SUMMARY | 2024-02-16 16:34 | XMS_ITS | Encounter Summary ---
Author Organization [facility] [place] [address] Care Team Providers Care Welfare Eligibility Interviewer Name Role Phone Unavailable Primary Care Provider Unavailabl e Encounter Details Date Type Department Care Team (Latest Contact Info) Description 10/13/2023 Travel Social History Tobacco Use Types Packs/Day [...] PM EST Telephone Radiation Oncology at [address] [phone] Jose Ferraro [facility] 04/20/2024 8:30 AM EDT Scheduled View Only Radiation Oncology at [address] [phone] Jose Ferraro [facility] 04/20/2024 9:00 AM EDT Procedure visit Radiation Oncology at [address] [phone] David Barker MD [address] [place] [address] [place] [address] 04/20/2024 9:00 AM EDT Scheduled View Only Radiation Oncology at [address] [phone] 04/22/2024 3:30 PM EDT Infusion Hematology Oncology at [address] [phone] 04/25/2024 10:10 AM EDT [place] [phone] David Barker MD [address] [place] [address] DR RADIATION ONCOLOGY [place], [place] [address] 04/25/2024 11:30 AM EDT Scheduled View Only [place] [address] 04/25/2024 12:00 PM EDT Ancillary Appointment [place] [phone] David Barker MD [address] [place] [address] DR RADIATION ONCOLOGY [place], [place] [address] 04/25/2024 12:00 PM EDT Scheduled View [place] [address] documented as of this encounter Visit Diagnoses Not on filedocumented in this encounter
--- OUTSIDE RECORDS SUMMARY | 2024-02-16 16:34 | XMS_ITS | Clinical Summary ---
Author Organization [facility] Address [address] [place] [address] Care Team Providers Care Retirement Sales Consultant Name Role Phone None, Provider Primary Care Provider Unavailabl e Allergies No known active allergies Medications No known medications Surgical History Surgery Date Site/Laterality Comments TONSILLECTOMY Family History Medical History Relation Comments Blindness Neg Hx Cancer Neg Hx Cataract Neg Hx Glaucoma Neg Hx Stroke Neg Hx Thyroid Disease Neg Hx Tuberculosis Neg Hx Social History Tobacco Use Types Packs/Day Years [...] on file Sexual Orientation Not on file Obstetrics History Plan of Treatment Health Maintenance Due Date Last Done Comments Fall Risk Screening 2018 COVID-19 Vaccine (2023- season) 2023 RSV Immunization ( o r 60+ Years) (1 - 1-dose 75+ series) 2028 Hepatitis C Screen Completed 02/27/2022 Procedures Procedure Name Priority Date/Time Associated Diagnosis Comments HEPATITIS C AB W REFLEX TO HCV RNA BY PCR Routine 02/27/2022 14:24 EST from Last 3 Months or Most Recently Relevant to Health Maintenance Results * HEPATITIS C AB W REFLEX TO HCV RNA BY PCR (02/27/2022 14:24 EST) Hep C Antibody Negative Negative 02/28/2022 10:11 EST [facility] Blood VENOUS BLOOD / Unknown 02/27/2022 14:24 EST 02/27/2022 21:54 EST us Provider Outr Resulting Lab CHEMISTRY & BLOOD GA S ORDERABLES Final Result [facility] [address] [place] [address] from Last 3 Months or Most Recently Relevant to Health Maintenance Insurance MEDICARE ACO [place] Care Teams Retirement Sales Consultant Relationship Specialty Start Date End Date None, Provider PCP - General 03/30/12
--- OUTSIDE RECORDS SUMMARY | 2024-02-16 16:34 | XMS_ITS | Encounter Summary ---
Author Organization [facility] Address [address] [place] [address] Care Team Providers Care Hunter Guide Name Role Phone None, Provider Primary Care Provider Unavailabl e Encounter Details Date Type Department Care Team (Latest Contact Info) Description 11/30/2018 7:54 EDT - 12/01/2018 14:52 EDT Hospital Encounter [address] [address] Clarissa Summers MD [address] [place] [address] Discharge Disposition: Home or Self Care Social History Tobacco Use Types Packs/Day Years Used Date Smoking Tobacco: Never Alcohol Use Standard Drinks/Week Comments Yes 0 (1 standard drink = 0.6 oz pur e alcohol) Sex and Gender Information Value Date Recorded Sex Assigned at Not on file Legal Sex Male 12:14 EST Gender Identity Not on file Sexual Orientation Not on file documented as of this encounter Discharge Diagnoses Diagnosis D48.5 Neoplasm of uncertain behavior of skin-D48.5[ICD-10-CM] documented in this encounter Discharge Disposition Disposition Code Departure Means Destination Home or Self Care documented in this encounter Plan of Treatment Not on file documented as of this encounter Visit Diagnoses Not on filedocumented in this encounter Care Teams Hunter Guide Relationship Specialty Start Date End Date None, Provider PCP - General 03/30/12 documented as of this encounter
--- OUTSIDE RECORDS SUMMARY | 2024-02-16 16:34 | XMS_ITS | Encounter Summary ---
Author Organization [facility] [place] [address] Care Team Providers Care Aging Department Supervisor Name Role Phone Unavailable Primary Care Provider Unavailabl e Encounter Details Date Type Department Care Team (Late Contact Info) Description 07/08/2023 [place] [phone] Zaida Moore Social History Tobacco Use Types Packs/Day Years [...] 3:00 PM EST Telephone Radiation Oncology at [address] [phone] Jose Ferraro [facility] 04/20/2024 8:30 AM EDT Scheduled View Only Radiation Oncology at [address] [address] Jose Ferraro [facility] 04/20/2024 9:00 AM EDT Procedure visit Radiation Oncology at [address] [address] David Barker MD [address] [place] [address] [place] [address] 04/20/2024 9:00 AM EDT Scheduled View Only Radiation Oncology at [address] [address] 04/22/2024 3:30 PM EDT Infusion Hematology Oncology at [address] [phone] 04/25/2024 10:10 AM ED[place] [address] David Barker MD [address] [place] [address] DR RADIATION ONCOLOGY [place], [place] [id number] 04/25/2024 11:30 AM EDT Scheduled View Only [place] [address] 04/25/2024 12:00 PM EDT Ancillary Appointment [place] [address] David Barker MD [address] [place] [address] DR RADIATION ONCOLOGY [place], [place] [id number] 04/25/2024 12:00 PM EDT Scheduled View Only Radiation [place] [address] documented as of this encounter Visit Diagnoses Not on filedocumented in this encounter
--- OUTSIDE RECORDS SUMMARY | 2024-02-16 16:34 | XMS_ITS | Encounter Summary ---
Author Organization [facility] [place] [address] Care Team Providers Care Screener And Blender Name Role Phone Georgette Mercedes APRN Primary Care Provider Encounter Details Date Type Department Care Team (Late st Contact Info) Description 10/23/2023 Telephone [place] [address] Stephanie Danielle RN Social History Tobacco Use Types Packs/Day Years Used Date Smoking Tobacco: Never Assessed Sex and Gender Information Value Date Recorded Sex Assigned at Not on file Gender Identity Not on file Sexual Orientation Not on file documented as of this encounter Miscellaneous Notes * Telephone Encounter - Stephanie Danielle RN - 10/23/2023 10:28 AM EDT Information letter mailed 10/26/23 Prostate Biopsy Date/Time: 11/12/23 1030 Meds/Allergies: (reviewed and charted) No Anticoagulant medications: (Coumadin, Plavix, ASA, NSAIDs, Eliquis, Farxiga, xarelto, tavenos, savaysa, arixtra, pradaxa, iprivask, angiomax, acora): NO If yes, review with PCP or furnace cleaner to discuss bridging OTC, herbal and vitamin supplements for potential anti-coag effect: (ginko, trey, feverfew, garlic, Vit E): NO If yes: stop 1 week prior to and after biopsy Labs: all patients to get PSA and % free within 30 days of prostate biopsy PSA: 28.3 - 06/02/23; will recheck [facility] Lab prior to biopsy MRI: 10/13/23 PI-RADS 5, 4, 3 Patient Hx: Joint replacement: Right Hip Feb Anyone in household work in healthcare: No Antibiotic use in the past 6 months: No Travel outside the [place] in the past 6 months: No Artificial heart valve: No If yes, need urine culture 1 week prior to prostate biopsy Performs CIC or has indwelling catheter: No If yes, need urine culture 1 week prior to prostate biopsy Other : Rectal swab (recommended if pt answers YES to living with a healthcare worker, flouroquinolone abx therapy in past 6 months, or foreign travel to 2nd or 3rd world country): Not indicated Patient Instructions/Information: [place] at Beater Engineer 5B Eat breakfast Administer fleet enema night before or morning of biopsy Stop NSAIDs 7 days prior to biopsy Stop anticoagulation or bridging as needed You will receive antibiotics the morning of the procedure, 1 hour prior to prostate biopsy We will ask you for a urine sample that morning Plan to be here for 2-3 hours Patient understands and is able to verbalize back to this nurse the above information. Patient agrees to the plan, knows when and how to call if need arises. documented in this encounter Plan of Treatment Upcoming Encounters Date Type Department Care Team (Late st Contact Info) Description 04/13/2024 3:00 PM EST Telephone Radiation Oncology at [address] [phone] Jose Ferraro [facility] 04/20/2024 8:30 AM EDT Scheduled View Only Radiation Oncology at [address] [address] Jose Ferraro [facility] 04/20/2024 9:00 AM EDT Procedure visit Radiation Oncology at [address] [address] David Barker MD [address] [place] [address] [place] [address] 04/20/2024 9:00 AM EDT Scheduled View Only Radiation Oncology at [address] [address] 04/22/2024 3:30 PM EDT Infusion Hematology Oncology at [address] [address] 04/25/2024 10:10 AM EDT [place] [address] David Barker MD [address] [place] [address] [place] [address] 04/25/2024 11:30 AM EDT Scheduled View Only [place] [address] 04/25/2024 12:00 PM EDT Ancillary Appointment [place] [address] David Barker MD [address] [place] [address] DR RADIATION ONCOLOGY [place], [place] [address] 04/25/2024 12:00 PM EDT Scheduled View [place] [address] documented as of this encounter Visit Diagnoses Not on filedocumented in this encounter Care Teams Screener And Blender Relationship Specialty Start Date End Date Georgette Mercedes APRN [address] [place] [address] PCP - General Internal Medicine 10/23/23 02/15/24 documented as of this encounter
--- OUTSIDE RECORDS SUMMARY | 2024-02-16 16:34 | XMS_ITS | Encounter Summary ---
Author Organization [facility] Address [address] [place] [address] Care Team Providers Care Arterial Embalmer Name Role Phone None, Provider Primary Care Provider Unavailabl e Encounter Details Date Type Department Care Team (Late st Contact Info) Description 01/09/2022 Lab Requisition [facility] Pathology & Laboratory Medicine - [facility] [address] [place], [place] [id number] Outr Resulting Lab, Provider Social History Tobacco Use Types Packs/Day Years Used Date Smoking Tobacco: Never Assessed Interpersonal Safety Answer Date Record ed Physically [...] Procedure Name Priority Date/Time Associated Diagnosis Comments PSA TOTAL, DIAGNOSTIC Routine 01/09/2022 9:18 EST documented in this encounter Results * (ABNORMAL) PSA TOTAL, DIAGNOSTIC (01/09/2022 9:18 EST) PSA 13.7(H) <=4.5 ng/mL 01/09/2022 19:41 EST [facility] Blood VENOUS BLOOD / Unknown 01/09/2022 9:18 EST 01/09/2022 17:29 EST Narrative [facility] - 01/09/2022 19:41 EST NOTE: Serum PSA concentration should not be interpreted as absolute evidence for the presence or absence of malignant disease. Assayed on Euphoria App ADVIA Affinity Edgeaur XPT using chemiluminescent technology.??Values obtained by using different assay methods cannot be used interchangeably. us Provider Outr Resulting Lab CHEMISTRY & BLOOD GA S ORDERABLES Final Result [facility] [address] [place] [address] documented in this encounter Visit Diagnoses Not on filedocumented in this encounter Care Teams Arterial Embalmer Relationship Specialty Start Date End Date None, Provider PCP - General 03/30/12 documented as of this encounter
--- OUTSIDE RECORDS SUMMARY | 2024-02-16 16:34 | XMS_ITS | Encounter Summary ---
Author Organization [facility] Address [address] [place] [address] Care Team Providers Care Parole Hearing Officer Name Role Phone None, Provider Primary Care Provider Unavailabl e Encounter Details Date Type Department Care Team (Late st Contact Info) Description 12/15/2018 Results Only [facility] [phone] Juliana Diop PA [address] [facility] [address], [address] [place], [place] [id number] Social History Tobacco Use Types Packs/Day Years [...] Priority Date/Time Associated Diagnosis Comments SURGICAL PATHOLOGY Routine 12/15/2018 16 :33 EST documented in this encounter Results * SURGICAL PATHOLOGY (12/15/2018 16:33 EST) Pathology Report: SURGICAL PATHOLOGY REPORT Reports generated via electronic interface contain original data; however they are lacking the format of the original report. Caution should be taken when reading/interpret ing unformatted reports. Name: ? FREDERICK HAY ? Accession #: ? [id number] ? : ? 1955 (Age: 63) ??M ? Collect Date: ? 12/15/2018 ? Location: ? [facility] ? Receive Date: ? 12/15/2018 ? Provider: JULIANA REAVES Copy to: KORIN RODRIGUEZ MD ? Final Pathologic Diagnosis: SKIN OF CHEST, LEFT MEDIAL INFERIOR, EXCISION: - Epidermal reparative change and dermal scar, consistent with biopsy site. - No residual basal cell carcinoma identified. Microscopic Description: The epidermis shows reparative changes with effacement of the rete ridge pattern. ??The underlying dermis has fibrosis with fibroblasts and collagen bundles oriented parallel to the epidermis. ??There is a reactive vascular pattern. ??(Dr. Barclay)/[facility] Document reviewed and electronically signed by: FLAVIO BARCLAY MD Report ??Date: 12/17/2018 16:07 By the signature above, the attending physician certifies that he/she has personally conducted a gross and/or microscopic examination of the described specimens and rendered or confirmed the above diagnosis. Specimen(s) Received: Left medial inferior chest excision Clinical History: Well healed biopsy site with evidence of residual; DDx: Basal cell carcinoma, please check margins; clinical diagnosis code: C44.519 Gross Description: ? Received in formalin labelled with proper patient identification (initials B, R) and left medial inferior chest is an unoriented elliptical excision of zee-pink skin (2.5 x 1.0 cm, and is excised to a depth of 0.5 cm). There is a central zee-brown encrusted raised healing biopsy site (0.7 x 0.4 x 0.1 cm) located on the skin surface. The margins are inked blue. The specimen is serially sectioned and entirely submitted as 1 tips, reverse en face and 2-4 central sections. JEAN PAUL Reese (ASCP) 12/15/2018 5:05 PM End of Report [facility] 12/15/2018 16:3 3 EST 12/15/2018 16:33 EST us Juliana REAVES PATHOLOGY ORDERABLES Final Res ult Performing Organization Address City/State/[facility] Co de Phone Number [facility] [address] [place] [address] documented in this encounter Visit Diagnoses Not on filedocumented in this encounter Care Teams Parole Hearing Officer Relationship Specialty Start Date End Date None, Provider PCP - General 03/30/12 documented as of this encounter
--- OUTSIDE RECORDS SUMMARY | 2024-02-16 16:34 | XMS_ITS | Encounter Summary ---
Author Organization [facility] Address [address] [place] [address] Care Team Providers Care Absorption Plant Operator Helper Name Role Phone None, Provider Primary Care Provider Unavailabl e Encounter Details Date Type Department Care Team (Late st Contact Info) Description 12/02/2022 Lab Requisition [facility] Pathology & Laboratory Medicine - [facility] [address] [place], [place] [id number] Outr Resulting Lab, Provider Social History Tobacco [...] Associated Diagnosis Comments PSA TOTAL, DIAGNOSTIC Routine 12/02/2022 13:38 EDT documented in this encounter Results * (ABNORMAL) PSA TOTAL, DIAGNOSTIC (12/02/2022 13:38 EDT) PSA 18.8(H) <=4.5 ng/mL 12/02/2022 22:56 EDT [facility] Blood VENOUS BLOOD / Unknown 12/02/2022 13:38 EDT 12/02/2022 21:36 EDT Narrative [facility] - 12/02/2022 22:56 EDT NOTE: Serum PSA concentration should not be interpreted as absolute evidence for the presence or absence of malignant disease. Assayed on Siemens ADVIA Centaur XPT using chemiluminescent technology.??Values obtained by using different assay methods cannot be used interchangeably. us Provider Outr Resulting Lab CHEMISTRY & BLOOD GA S ORDERABLES Final Result [facility] [address] [place] [address] documented in this encounter Visit Diagnoses Not on filedocumented in this encounter Care Teams Absorption Plant Operator Helper Relationship Specialty Start Date End Date None, Provider PCP - General 03/30/12 documented as of this encounter
--- OUTSIDE RECORDS SUMMARY | 2024-02-16 16:34 | XMS_ITS | Referral Summary ---
Author Organization [facility] Address [address] [place] [address] Care Team Providers Care Nursing Coordinator Name Role Phone None, Provider Primary Care Provider Unavailabl e Allergies No known active allergies Medications No known medications Social History Tobacco Use Types Packs/Day Years [...] on file Sexual Orientation Not on file Plan of Treatment Not on file Procedures Procedure Name Priority Date/Time Associated Diagnosis Comments HEPATITIS C AB W REFLEX TO HCV RNA BY PCR Routine 02/27/2022 14:24 EST from Last 3 Months or Most Recently Relevant to Health Maintenance Results * HEPATITIS C AB W REFLEX TO HCV RNA BY PCR (02/27/2022 14:24 EST) Hep C Antibody Negative Negative 02/28/2022 10:11 EST [facility] Blood VENOUS BLOOD / Unknown 02/27/2022 14:24 EST 02/27/2022 21:54 EST us Provider Outr Resulting Lab CHEMISTRY & BLOOD GA S ORDERABLES Final Result [facility] [address] [place] [address] from Last 3 Months or Most Recently Relevant to Health Maintenance Insurance MEDICARE ACO [place] Care Teams Nursing Coordinator Relationship Specialty Start Date End Date None, Provider PCP - General 03/30/12
--- OUTSIDE RECORDS SUMMARY | 2024-02-16 16:34 | XMS_ITS | Encounter Summary ---
Author Organization [facility] Address [facility] [place] [address] Care Team Providers Care Supervisor Mapping Name Role Phone Unavailable Primary Care Provider Unavailabl e Encounter Details Date Type Department Care Team (Latest Contact Info) Description 10/13/2023 10:00 AM EDT - 10/13/2023 10:37 AM EDT Hospital Encounter XRay at [address] [place] [phone] Daniel Charles MD [address] [place] [address] Elevated prostate specific antigen (PSA) Discharge Disposition: Home Social History Tobacco Use [...] 3:00 PM EST Telephone Radiation Oncology at [address] [phone] Jose Ferraro [facility] 04/20/2024 8:30 AM EDT Scheduled View Only Radiation Oncology at [address] [phone] St [facility] Hamm 04/20/2024 9:00 AM EDT Procedure visit Radiation Oncology at [address] [phone] David Barker MD [address] [place] [address] DR RADIATION [place], [place] [address] 04/20/2024 9:00 AM EDT Scheduled View Only Radiation Oncology at [address] [phone] 04/22/2024 3:30 PM EDT Infusion Hematology Oncology at [address] [phone] 04/25/2024 10:10 AM EDT Appointment MRI at [place] [phone] David Barker MD [address] [place] [address] [place] [address] 04/25/2024 11:30 AM EDT Scheduled View [place] [phone] 04/25/2024 12:00 PM EDT Ancillary Appointment [place] [phone] David Barker MD [address] [place] [address] [place] [address] 04/25/2024 12:00 PM EDT Scheduled View Only [place] [phone] documented as of this encounter Procedures Procedure Name Priority Date/Time Associated Diagnosis Comments XR PRE MRI ORBITS Routine 10/13/2023 10: 31 AM EDT Elevated prostate specific antigen (PSA) documented in this encounter Results * XR Pre MRI Orbits (Generic) (10/13/2023 10:31 AM EDT) WORKSTATION ID [id number] RAD Anatomical Region Laterality Modality Head N/A Digital Radiogra phy Impressions 10/13/2023 1:28 PM EDT No radiopaque foreign body within the orbits Thank you for letting us participate in the care of this patient. ??If you are a health care provider and have any questions regarding this report, please contact the number below. ??For patients who have questions please contact the health lpn care manager that requested your imaging first. ? Narrative 10/13/2023 1:28 PM EDT EXAMINATION: XR PRE MRI ORBITS (GENERIC) CLINICAL HISTORY: r/o foreign body in eyes prior to mri. R97.20, Elevated prostate specific antigen (PSA) TECHNIQUE: 2 views COMPARISON: None FINDINGS: No radiopaque foreign body detected within the orbits Nasal septum is midline. ??The major paranasal sinuses aerated and symmetric Dental amalgam, including tooth implant are noted. ??The calvarium is intact. Procedure Note Trip Shaw MD - 10/13/2023 EXAMINATION: XR PRE MRI ORBITS (GENERIC) CLINICAL HISTORY: r/o foreign body in eyes prior to mri. R97.20, Elevated prostate specific antigen (PSA) TECHNIQUE: 2 views COMPARISON: None FINDINGS: No radiopaque foreign body detected within the orbits Nasal septum is midline. The major paranasal sinuses aerated andsymmetric Dental amalgam, including tooth implant are noted. The calvarium isintact. IMPRESSION No radiopaque foreign body within the orbits Thank you for letting us participate in the care of this patient. If youare a health care provider and have any questions regarding this report,please contact the number below. For patients who have questions please contactthe health lpn care manager that requested your imaging first. Daniel [place] MD IMG DX ORDERABLES documented in this encounter Visit Diagnoses Diagnosis Elevated prostate specific antigen (PSA) documented in this encounter
--- OUTSIDE RECORDS SUMMARY | 2024-02-16 16:34 | XMS_ITS ---
Author Organization [facility] [place] [address] Care Team Providers Care Engraver Jewelry Name Role Phone Jarret Patton DO Primary Care Provider [phone] [facility] Status:Enrolled (Active) Start date:01/14/2024 Enrollment date:02/02/2024 Enrollment reason:Enrolled - Currently Fills with Specialty Current support & services provided:Clinical Management, Refill Management, Benefits Investigation Linked medications:abiraterone acetate (Active) Linked problems:Malignant neoplasm of prostate (Active) Continued Care and Services Coordination
--- OUTSIDE RECORDS SUMMARY | 2024-02-16 16:34 | XMS_ITS | Encounter Summary ---
Author Organization [facility] Address [address] [place] [address] Care Team Providers Care Water Ski Assembler Name Role Phone None, Provider Primary Care Provider Unavailabl e Encounter Details Date Type Department Care Team (Late st Contact Info) Description 06/16/2023 Lab Requisition [facility] Pathology & Laboratory Medicine - [facility] [address] [place], [place] [phone] Outr Resulting Lab, Provider Social History Tobacco [...] Associated Diagnosis Comments PSA TOTAL, DIAGNOSTIC Routine 06/16/2023 7:37 EDT documented in this encounter Results * (ABNORMAL) PSA TOTAL, DIAGNOSTIC (06/16/2023 7:37 EDT) PSA 28.4(H) <=4.5 ng/mL 06/16/2023 18:28 EDT [facility] Blood VENOUS BLOOD / Unknown 06/16/2023 7:37 EDT 06/16/2023 16:53 EDT Narrative [facility] - 06/16/2023 18:28 EDT NOTE: Serum PSA concentration should not be interpreted as absolute evidence for the presence or absence of malignant disease. Assayed on Siemens ADVIA Centaur XPT using chemiluminescent technology.??Values obtained by using different assay methods cannot be used interchangeably. us Provider Outr Resulting Lab CHEMISTRY & BLOOD GA S ORDERABLES Final Result [facility] [address] [place], [place] [phone] documented in this encounter Visit Diagnoses Not on filedocumented in this encounter Care Teams Water Ski Assembler Relationship Specialty Start Date End Date None, Provider PCP - General 03/30/12 documented as of this encounter
--- OUTSIDE RECORDS SUMMARY | 2024-02-16 16:34 | XMS_ITS | Encounter Summary ---
Author Organization [facility] Address [address] [place] [address] Care Team Providers Care Chief Gauger Name Role Phone None, Provider Primary Care Provider Unavailabl e Encounter Details Date Type Department Care Team (Late st Contact Info) Description 02/27/2022 Lab Requisition [facility] Pathology & Laboratory Medicine - [facility] [address], [place] [phone] Outr Resulting Lab, Provider Social History Tobacco [...] RNA BY PCR Routine 02/27/2022 14:24 EST documented in this encounter Results * HEPATITIS C AB W REFLEX TO HCV RNA BY PCR (02/27/2022 14:24 EST) Hep C Antibody Negative Negative 02/28/2022 10:11 EST [facility] Blood VENOUS BLOOD / Unknown 02/27/2022 14:24 EST 02/27/2022 21:54 EST us Provider Outr Resulting Lab CHEMISTRY & BLOOD GA S ORDERABLES Final Result [facility] [address] [place] [address] documented in this encounter Visit Diagnoses Not on filedocumented in this encounter Care Teams Chief Gauger Relationship Specialty Start Date End Date None, Provider PCP - General 03/30/12 documented as of this encounter
--- OUTSIDE RECORDS SUMMARY | 2024-02-16 16:34 | XMS_ITS | Encounter Summary ---
Author Organization [facility] Address [address] [place] [address] Care Team Providers Care Bowling Ball Grader Name Role Phone None, Provider Primary Care Provider Unavailabl e Reason for Visit * Reason Onset Date Comments Eye Problem 03/30/2012 FB (METAL) IN LT EYE Encounter Details Date Type Department Care Team (Late st Contact Info) Description 03/30/2012 Telephone [facility] Ophthalmology - Main [place] [address] [place] [address] Unknown, Provider, Eye Problem (FB (METAL) IN LT EYE) Social History Tobacco Use Types Packs/Day Years Used Date Smoking Tobacco: Never Assessed Sex and Gender Information Value Date Recorded Sex Assigned at Not on file Legal Sex Male 12:14 EST Gender Identity Not on file Sexual Orientation Not on file documented as of this encounter Miscellaneous Notes * Telephone Encounter - Katelin Slaughter - 03/30/2012 1333 EST PT has arrived in the office * Telephone Encounter - Jenny Ansari - 03/30/2012 1225 EST A nurse practitioner is calling from [facility] regarding a patient with embedded metallic foreign body left eye on examination. 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 Dr. Purvis is on-call, offered an appointment this afternoon. Patient is on their way documented in this encounter Plan of Treatment Not on file documented as of this encounter Visit Diagnoses Not on filedocumented in this encounter Care Teams Bowling Ball Grader Relationship Specialty Start Date End Date None, Provider PCP - General 03/30/12 documented as of this encounter
--- OUTSIDE RECORDS SUMMARY | 2024-02-16 16:34 | XMS_ITS | Encounter Summary ---
[place] [address] Care Team Providers Care Supervisor Assembly Name Role Phone Unavailable Primary Care Provider Unavailabl e Reason for Referral * Diagnostic Test (Routine) - Closed Specialty Diagnoses / Procedures Referred By Contac t Referred To Contact Radiology Diagnoses Elevated PSA Procedures MRI Pelvis wwo (Prostate) Daniel Charles MD [address] [place] [address] [place] [address] Referral ID Status Reason Start Date Expiration Date V isits Requested Visits Authorized [id number] Closed Specialty Service Requested PCP Updated and/or Approved 07/01/2023 12/31/2024 1 1 Reason for Visit * Diagnostic Test (Routine) - Closed Specialty Diagnoses / Procedures Referred By Contac t Referred To Contact Radiology Diagnoses Elevated PSA Procedures MRI Pelvis wwo (Prostate) Daniel Charles MD [address] [place] [address] [place] [address] Referral ID Status Reason Start Date Expiration Date V isits Requested Visits Authorized [id number] Closed Specialty Service Requested PCP Updated and/or Approved 07/01/2023 12/31/2024 1 1 Encounter Details Date Type Department Care Team (Latest Contact Info) Description 10/13/2023 10:38 AM EDT - 10/13/2023 11:59 PM EDT Hospital [place] [address] Daniel Charles MD [address] [place] [address] Elevated PSA Discharge Disposition: Home Social History [...] 3:00 PM EST Telephone Radiation Oncology at [address] [phone] Jose Ferraro [facility] 04/20/2024 8:30 AM EDT Scheduled View Only Radiation Oncology at [address] [phone] Jose Ferraro [facility] 04/20/2024 9:00 AM EDT Procedure visit Radiation Oncology at [address] [address] David Barker MD [address] [place] [address] [place] [address] 04/20/2024 9:00 AM EDT Scheduled View Only Radiation Oncology at [address] [phone] 04/22/2024 3:30 PM EDT Infusion Hematology Oncology at [address] [phone] 04/25/2024 10:10 AM [place] [address] David Barker MD [address] [place] [address] [place] [address] 04/25/2024 11:30 AM EDT Scheduled View Only [place] [phone] 04/25/2024 12:00 PM EDT Ancillary Appointment [place] [address] David Barker MD [address] [place] [address] [place] [address] 04/25/2024 12:00 PM EDT Scheduled View [place] [address] documented as of this encounter Procedures Procedure Name Priority Date/Time Associated Diagnosis Comments MRI PELVIS WWO (PROSTATE) Routine 10/13/2023 11:54 AM EDT Elevated PSA documented in this encounter Results * MRI Pelvis wwo (Prostate) (10/13/2023 11:54 AM EDT) WORKSTATION ID [id number] RAD Anatomical Region Laterality Modality Pelvis Magnetic Resonan ce Impressions 10/15/2023 5:18 PM EDT Lesion 1 PZ: PI-RADS 5. T2 location: axial series 8001, image 20; sagittal series 43053, image 19. Lesion 2 PZ: PI-RADS 4. T2 location: axial series 8001, image 26; sagittal series 60137, image 15. Lesion 3 TZ: PI-RADS 3. T2 location: axial series 8001, image 16; sagittal series 29519, image 15. Segmented in UroNav. PI-RADS v2.1 Assessment Categories PI-RADS 1 -- Very low (clinically significant cancer is highly unlikely to be present) PI-RADS 2 -- Low (clinically significant cancer is unlikely to be present) PI-RADS 3 -- Intermediate (the presence of clinically significant cancer is equivocal) PI-RADS 4 -- High (clinically significant cancer is likely to be present) PI-RADS 5 -- Very high (clinically significant cancer is highly likely to be present) References: Rebecca S1, John JH1, Murcia S1, Gracia C1, Rocha J1, Czarniecki M1, Gold S1, Alonso G1, Rayn K1, Angulo MJ1, Wood BJ1, Orozco PA1, Jose PL1, Joo B1. ??A Grading System for the Assessment of Risk of Extraprostatic Extension of Prostate Cancer at Multiparametric MRI. Radiology. 2019 Apr;290(3):709-719. doi: 10.1148/radiol.8300185655. Epub 2018Mar 02. I have personally reviewed the image(s) and the resident's interpretation and agree with the findings, Trevor Kim MD at 10/15/2023 5:18 PM Thank you for letting us participate in the care of this patient. ??If you are a health care provider and have any questions regarding this report, please contact the number below. ??For patients who have questions please contact the health healthcare business analyst that requested your imaging first. ? Narrative 10/15/2023 5:18 PM EDT EXAMINATION: MRI PELVIS WWO (PROSTATE) CLINICAL HISTORY: elevated psa R97.20, Elevated prostate specific antigen (PSA) HAS PATIENT HAD PREVIOUS BIOPSY?: No MOST RECENT PSA LEVEL: 28.3 on 06/02/2023 TECHNIQUE: Multiparametric MRI of the prostate prior to and following IV administration of 20mL of Dotarem contrast. ?? QUALITY: Limited by susceptibility artifact, compromising the [...] homogenous moderately hypointense mass PI-RADs: 5. DWI: ??Focal markedly hypointense on ADC and markedly hyperintense on high b-value DWI PI-RADs: 5. DCE-MRI: (+) focal early enhancement which corresponds to the suspicious finding on T2WI and/or DWI. ? Combined PI-RADs: 5. Lesion 2. Left anterior apex (0.7 cm) T2: Circumscribed, homogenous moderately hypointense focus PI-RADs: 4. DWI: ??Focal markedly hypointense on ADC and markedly hyperintense on high b-value DWI PI-RADs: 4. DCE-MRI: (+) focal enhancement contemporaneous with enhancement of adjacent normal prostatic tissues, corresponds to the suspicious finding on T2WI and/or DWI. ? Combined PI-RADs: 4. Transition zone: Lesion 3: Left base (1.1 x 0.9 x 0.9 cm) T2: Mostly encapsulated nodule PI-RADs: 2. DWI: ??Focal markedly hypointense on ADC and markedly hyperintense on high b-value DWI PI-RADs: 4. DCE-MRI: (+) focal early enhancement which corresponds to the suspicious finding on T2WI and DWI. ? Combined PI-RADs: 3. Extraprostatic disease: Seminal vesicle involvement:No Lymphadenopathy:No Sphincter involvement:No Bladder involvement:No Osseous metastases: No MRI-derived Extraprostatic extension risk: Lesion 1: Grade 2: 38.2% (Curvilinear contact length and capsular bulge/irregularity) Other findings: right hip arthroplasty Procedure Note Trevor Kim MD - 10/15/2023 EXAMINATION: MRI PELVIS WWO (PROSTATE) CLINICAL HISTORY: [...] greater than left (3.0 x 2.5 x 0.9cm) T2: Circumscribed, homogenous moderately hypointense mass PI-RADs: 5. DWI: Focal markedly hypointense on ADC and markedly hyperintense onhigh b-value DWI PI-RADs: 5. DCE-MRI: (+) focal early enhancement which corresponds to the suspiciousfinding on T2WI and/or DWI. Combined PI-RADs: 5. Lesion 2. Left anterior apex (0.7 cm) T2: Circumscribed, homogenous moderately hypointense focus PI-RADs: 4. DWI: Focal markedly hypointense on ADC and markedly hyperintense onhigh b-value DWI PI-RADs: 4. DCE-MRI: (+) focal enhancement contemporaneous with enhancement ofadjacent normal prostatic tissues, corresponds to the suspicious finding on W4TMpef/or DWI. Combined PI-RADs: 4. Transition zone: Lesion 3: Left base (1.1 x 0.9 x 0.9 cm) T2: Mostly encapsulated nodule PI-RADs: 2. DWI: Focal markedly hypointense on ADC and markedly hyperintense onhigh b-value DWI PI-RADs: 4. DCE-MRI: (+) focal early enhancement which corresponds to the suspiciousfinding on T2WI and DWI. Combined PI-RADs: 3. Extraprostatic disease: Seminal vesicle involvement:No Lymphadenopathy:No Sphincter involvement:No Bladder involvement:No Osseous metastases: No MRI-derived Extraprostatic extension risk: Lesion 1: Grade 2: 38.2% (Curvilinear contact length and capsular bulge/irregularity) Other findings: right hip arthroplasty IMPRESSION Lesion 1 PZ: PI-RADS 5. T2 location: axial series 8001, image 20;sagittal series 17525, image 19. Lesion 2 PZ: PI-RADS 4. T2 location: axial series 8001, image 26;sagittal series 96801, image 15. Lesion 3 TZ: PI-RADS 3. T2 location: axial series 8001, image 16;sagittal series 60448, image 15. Segmented in UroNav. PI-RADS v2.1 Assessment Categories PI-RADS 1 -- Very low (clinically significant cancer is highly unlikely liang present) PI-RADS 2 -- Low (clinically significant cancer is unlikely to bepresent) PI-RADS 3 -- Intermediate (the presence of clinically significant canceris equivocal) PI-RADS 4 -- High (clinically significant cancer is likely to bepresent) PI-RADS 5 -- Very high (clinically significant cancer is highly likely liang present) References: Rebecca S1, John JH1, Twin S1, Basil C1, Aj J1, Jesús M1,Gold S1, Alonso G1, Rayn K1, Kev MJ1, Wisam BJ1, Orozco PA1, Jose PL1, Joo B1.A Grading System for the Assessment of Risk of Extraprostatic Extension of Prostate Cancer at Multiparametric MRI. Radiology. 2019Mar;290(3):709-719. doi: 10.1148/radiol.4905888386. Epub 2018Mar 02. I have personally reviewed the image(s) and the resident's interpretationand agree with the findings, Trevor Kim MD at 10/15/2023 5:18 PM Thank you for letting us participate in the care of this patient. If youare a health care provider and have any questions regarding this report,please contact the number below. For patients who have questions please contactthe health healthcare business analyst that requested your imaging first. Daniel Charles MD IMG MRI ORDERABLES documented in this encounter Visit Diagnoses Diagnosis Elevated PSA Elevated prostate specific antigen (PSA) documented in this encounter Administered Medications Inactive Administered Medications - up to 3 most recent administrations Medication Order MAR Action Action Date Dose Rate Site gadoterate meglumine (Dotarem) (0.5 mMol/mL) injection solution 0-100 mL 0-100 mL, Intravenous, ONCE PRN, 1 dose, Starting on Thu10/13/23 at 1154, Until Thu10/13/23 at 1154, Per Protocol, Radiology Contrast, Routine Given 10/13/2023 11:54 AM EDT 20 mLs documented in this encounter
--- OUTSIDE RECORDS SUMMARY | 2024-02-16 16:34 | XMS_ITS | Encounter Summary ---
Author Organization [facility] Address [address] [place] [address] Care Team Providers Care B Operator Name Role Phone None, Provider Primary Care Provider Unavailabl e Encounter Details Date Type Department Care Team ([facility] st Contact Info) Description 11/30/2018 Results Only [facility] [phone] Quentin Mike MD [address] [place] [address] Social History Tobacco Use Types Packs/Day Years [...] Date/Time Associated Diagnosis Comments SURGICAL PATHOLOGY Routine 11/30/2018 22 :08 EDT documented in this encounter Results * SURGICAL PATHOLOGY (11/30/2018 22:08 EDT) Pathology Report: SURGICAL PATHOLOGY REPORT Reports generated via electronic interface contain original data; however they are lacking the format of the original report. Caution should be taken when reading/interpret ing unformatted reports. Name: ? FREDERICK HAY ? Accession #: ? [id number] ? : ? 1955 (Age: 62) ??M ? Collect Date: ? 11/30/2018 ? Location: ? [facility] ? Receive Date: ? 11/30/2018 ? Provider: QUENTIN MIKE MD Copy to: KORIN RODRIGUEZ MD ? Final Pathologic Diagnosis: SKIN OF CHEST, LEFT MEDIAL INFERIOR, SHAVE BIOPSY: - Basal cell carcinoma, superficial and nodular types. - Lesion extends to peripheral edge and base of biopsy specimen. Document reviewed and electronically signed by: QUENTIN GALO MD Report ??Date: 12/01/2018 17:12 By the signature above, the attending physician certifies that he/she has personally conducted a gross and/or microscopic examination of the described specimens and rendered or confirmed the above diagnosis. Specimen(s) Received: Left medial inferior chest shave biopsy Clinical History: 1.2 cm pink brown plaque, DDx: Basal cell carcinoma vs. SK; clinical diagnosis code: ??D48.5 Gross Description: ? Received in formalin labelled with proper patient identification (initials B, R) and left medial inferior chest is a shave biopsy of an irregular zee-white brown speckled papule (0.9 x 0.6 x 0.1 cm). The margin is inked blue. Bisected and submitted in 1. Mihrab Ali 12/01/2018 7:53 AM End of Report [facility] 11/30/2018 22:0 8 EDT 11/30/2018 22:08 EDT us Quentin Mike MD PATHOLOGY ORDERABLES Final Re sult [facility] [address] [place] [address] documented in this encounter Visit Diagnoses Not on filedocumented in this encounter Care Teams B Operator Relationship Specialty Start Date End Date None, Provider PCP - General 03/30/12 documented as of this encounter
--- OUTSIDE RECORDS SUMMARY | 2024-02-16 16:34 | XMS_ITS | Encounter Summary ---
Author Organization [facility] [place] [address] Care Team Providers Care Elementary Instructional Coach Name Role Phone Unavailable Primary Care Provider Unavailabl e Encounter Details Date Type Department Care Team (Late Contact Info) Description 07/01/2023 [place] [phone] Wendie Jean Baptiste Social History Tobacco Use Types Packs/Day Years [...] 3:00 PM EST Telephone Radiation Oncology at [address] [phone] Jose Nurse [facility] 04/20/2024 8:30 AM EDT Scheduled View Only Radiation Oncology at [address] [phone] Jose Ferraro Waqas 04/20/2024 9:00 AM EDT Procedure visit Radiation Oncology at [address] [address] David Barker MD [address] [place] [address] DR RADIATION [place] [address] 04/20/2024 9:00 AM EDT Scheduled View Only Radiation Oncology at [address] [address] 04/22/2024 3:30 PM EDT Infusion Hematology Oncology at [address] [phone] 04/25/2024 10:10 AM [place] [address] David Barker MD [address] [place] [address] DR RADIATION ONCOLOGY [place], [place] [phone] 04/25/2024 11:30 AM EDT Scheduled View [place] [address] 04/25/2024 12:00 PM EDT Ancillary Appointment [place] [address] David Barker MD [address] [place] [address] DR RADIATION ONCOLOGY [place] [id number] 04/25/2024 12:00 PM EDT Scheduled View [place] [address] documented as of this encounter Visit Diagnoses Not on filedocumented in this encounter
--- OUTSIDE RECORDS SUMMARY | 2024-02-16 16:34 | XMS_ITS | Encounter Summary ---
Author Organization [facility] Address [address] [place] [address] Care Team Providers Care Director E Learning Name Role Phone None, Provider Primary Care Provider Unavailabl e Encounter Details Date Type Department Care Team (Late st Contact Info) Description 05/19/2022 Lab Requisition [facility] Pathology & Laboratory Medicine - [facility] [address] [place], [place] [phone] Outr Resulting Lab, Provider Social History Tobacco [...] Associated Diagnosis Comments PSA TOTAL, DIAGNOSTIC Routine 05/19/2022 10:10 EDT documented in this encounter Results * (ABNORMAL) PSA TOTAL, DIAGNOSTIC (05/19/2022 10:10 EDT) PSA 11.9(H) <=4.5 ng/mL 05/19/2022 18:03 EDT [facility] Blood VENOUS BLOOD / Unknown 05/19/2022 10:10 EDT 05/19/2022 16:41 EDT Narrative [facility] - 05/19/2022 18:03 EDT NOTE: Serum PSA concentration should not be interpreted as absolute evidence for the presence or absence of malignant disease. Assayed on Siemens ADVIA Centaur XPT using chemiluminescent technology.??Values obtained by using different assay methods cannot be used interchangeably. us Provider Outr Resulting Lab CHEMISTRY & BLOOD GA S ORDERABLES Final Result [facility] [address] [place] [address] documented in this encounter Visit Diagnoses Not on filedocumented in this encounter Care Teams Director E Learning Relationship Specialty Start Date End Date None, Provider PCP - General 03/30/12 documented as of this encounter
--- OUTSIDE RECORDS SUMMARY | 2024-02-16 16:34 | XMS_ITS | Encounter Summary ---
Author Organization [facility] Address [address] [place] [address] Care Team Providers Care Qualified Craft Worker Electrician Name Role Phone None, Provider Primary Care Provider Unavailabl e Encounter Details Date Type Department Care Team (Late st Contact Info) Description 06/02/2023 Lab Requisition [facility] Pathology & Laboratory Medicine - [facility] [address] [place], [place] [phone] Outr Resulting Lab, Provider Social History Tobacco [...] Associated Diagnosis Comments PSA TOTAL, DIAGNOSTIC Routine 06/02/2023 14:07 EDT documented in this encounter Results * (ABNORMAL) PSA TOTAL, DIAGNOSTIC (06/02/2023 14:07 EDT) PSA 28.3(H) <=4.5 ng/mL 06/02/2023 22:33 EDT [facility] Blood VENOUS BLOOD / Unknown 06/02/2023 14:07 EDT 06/02/2023 21:22 EDT Narrative [facility] - 06/02/2023 22:33 EDT NOTE: Serum PSA concentration should not be interpreted as absolute evidence for the presence or absence of malignant disease. Assayed on Siemens ADVIA Frequencyaur XPT using chemiluminescent technology.??Values obtained by using different assay methods cannot be used interchangeably. us Provider Outr Resulting Lab CHEMISTRY & BLOOD GA S ORDERABLES Final Result [facility] [address] [place], [place] [phone] documented in this encounter Visit Diagnoses Not on filedocumented in this encounter Care Teams Qualified Craft Worker Electrician Relationship Specialty Start Date End Date None, Provider PCP - General 03/30/12 documented as of this encounter
--- OUTSIDE RECORDS SUMMARY | 2024-02-16 16:34 | XMS_ITS | Encounter Summary ---
Author Organization [facility] Address [address] [place] [address] Care Team Providers Care Cleaner And Preparer Name Role Phone None, Provider Primary Care Provider Unavailabl e Reason for Visit * Reason Comments Eye Problem erythromycin (ROMYCI N) 5 mg/gram (0.5 %) ophthalmic ointment; Place 1 cm into the left eye 4 times daily.Faithful to once a day., Vision good , Sometimes irratation. Pain No Floaters no Flashes no Encounter Details Date Type Department Care Team (Late st Contact Info) Description 04/08/2012 8:30 EST Office Visit [facility] Ophthalmology - [address] [address] Jose Purvis MD [address] [facility], [address] [place] [address] Social History Tobacco Use Types Packs/Day Years Used Date Smoking Tobacco: Never Assessed Sex and Gender Information Value Date Recorded Sex Assigned at Not on file Legal Sex Male 12:14 EST Gender Identity Not on file Sexual Orientation Not on file documented as of this encounter Progress Notes * Jose Purvis MD - 04/08/2012 0844 EST Chief Complaint Patient presents with ??? Eye Problem erythromycin (ROMYCIN) 5 mg/gram (0.5 %) ophthalmic ointment; Place 1 cm into the left eye 4 times daily.Faithful to once a day., Vision good , Sometimes irratation. Pain No Floaters no Flashes no HPI The patient is a 56 y.o. male follow up for corneal foreign body of the left eye. Removed at last exam. Pt has been treating with emycin QID, denies loss of vision or eye pain. Right Eye: NL Left Eye: Gritty/Foreign Body sensation Visual Aid: Glasses Current Rx Age 1 years Location: Left eye Pain: 0 - No pain Quality: Severity: Mild Duration: Days Timing: Constant Lasts: Continuous Context: Vision fine slight irration Modifying factors: Associated Signs & Symptoms: No floaters or flashes Attestation: ROS Constitutional: NL ENT/Mouth NL Cardiovascular: NL Respiratory: NL Gastrointestinal: NL Genitourinary: NL Musculoskeletal: NL Integumentary: NL Neurologic: NL Psychiatric: NL Endocrine: NL Hematologic: Immunologic: NL Presidential Helicopter Crew Chief: Exposures: None Other: Attestation: Allergies include: Review of patient's allergies indicates no known allergies. There is no problem list on file for this patient. Outpatient Prescriptions Marked as Taking for the 04/08/12 encounter (Office Visit) with Jose Purvis MD Medication Sig ??? erythromycin (ROMYCIN) 5 mg/gram (0.5 %) ophthalmic ointment Place 1 cm into the left eye 4 times daily. History reviewed. No pertinent past medical history. History reviewed. No pertinent past surgical history. Family History Problem Relation Age of Onset ??? Blindness Neg Hx ??? Cataract Neg Hx ??? Glaucoma Neg Hx ??? Cancer Neg Hx ??? Stroke Neg Hx ??? Thyroid Disease Neg Hx ??? Tuberculosis Neg Hx Patient does not have a smoking history on file. He does not have any smokeless tobacco history on file. Recent HbA1c: No results found for this basename: HGBA1C Base Ophthalmology Exam Visual Acuity Right Left Both Dist cc 20/20 -2 20/25 -3 Method: Snellen - Linear Tonometry Right Left Pressure 14 16 Method: Applanation Time: 8:21 Pupils Dark Light React APD Right 4 2 Brisk None Left 4 2 Brisk None Visual Veloz Right Left Result Full Full Extraocular Movement Right Left Result Full, Ortho Full, Ortho Main Ophthalmology Exam Slit Lamp Exam Right Left Lids/Lashes Normal Normal Conjunctiva/Sclera White and quiet White and quiet Cornea Clear small area of stain SN Anterior Chamber Deep and quiet Deep and quiet Iris Round and reactive Round and reactive Lens 1+ Nuclear sclerosis 1+ Nuclear sclerosis Neuro/Psych Oriented x3: Yes Mood/Affect: Normal IMPRESSION & PLAN: Usman was seen today for eye problem. Diagnoses and associated orders for this visit: Corneal foreign body: Resolved, with small area of staining. Continue erythromycin until gone. Follow up should pain or decrease in vision develop. 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 Pt elects to observe. Follow up in 1 year for routine eye exam, sooner PRN I have reviewed the patient's past medical, family, social and surgical history. I have also reviewed the patient's medications, allergies, and problem list. I performed my own HPI and have reviewed the tech's ROS as well. I personally completed this exam myself. Jose Purvis MD Signature: Jose Purvis MD The patient was instructed to call our office or go to emergency room if worse vision, worse symptoms, or new/other concerns arise. documented in this encounter Plan of Treatment Not on file documented as of this encounter Visit Diagnoses Diagnosis Corneal foreign body- Primary Foreign body in cornea Senile nuclear sclerosis documented in this encounter Discontinued Medications Medication Sig Discontinue Reason Start Date End Da te erythromycin (ROMYCIN) 5 mg/gram (0.5 %) ophthalmic ointment Place 1 cm into the left eye 4 times daily. Therapy completed 03/30/2012 04/08/2012 documented as of this encounter Eye Exam Visual Acuity (Snellen - Linear) Right eye Left eye Dist cc 20/20 -2 20/25 -3 Tonometry (Applanation, 8:21) Right eye Left eye Pressure 14 16 Pupils Dark Light React APD Right eye 4 2 Brisk None Left eye 4 2 Brisk None Visual Veloz Right eye Left eye Full Full Extraocular Movement Right eye Left eye Full, Ortho Full, Ortho Neuro/Psych Oriented x3: Yes Mood/Affect: Normal Slit Lamp Exam Right eye Left eye Lids/Lashes Normal Normal Conjunctiva/Sclera White and quiet White and wanda et Cornea Clear small area of st ain SN Anterior Chamber Deep and quiet Deep and quiet Iris Round and reactive Round and ashley ctive Lens 1+ Nuclear sclerosis 1+ Nuclear sclerosis Care Teams Cleaner And Preparer Relationship Specialty Start Date End Date None, Provider PCP - General 03/30/12 documented as of this encounter
--- OUTSIDE RECORDS SUMMARY | 2024-02-16 16:34 | XMS_ITS | Encounter Summary ---
Author Organization [facility] Address [address] [place] [address] Care Team Providers Care Mine Utility Operator Name Role Phone None, Provider Primary Care Provider Unavailabl e Encounter Details Date Type Department Care Team (Latest Contact Info) Description 12/15/2018 15:31 EST - 12/15/2018 15:32 EST Hospital Encounter [address] [address] Javier Diop PA [address] [place] [address] [address] [place], [place] [id number] Discharge Disposition: Home or Self Care Social [...] as of this encounter Discharge Diagnoses Diagnosis C44.519 Basal cell carcinoma of skin of other part of trunk-C44.519[ICD-10-CM] documented in this encounter Discharge Disposition Disposition Code Departure Means Destination Home or Self Care documented in this encounter Plan of Treatment Not on file documented as of this encounter Visit Diagnoses Not on filedocumented in this encounter Care Teams Mine Utility Operator Relationship Specialty Start Date End Date None, Provider PCP - General 03/30/12 documented as of this encounter
--- OUTSIDE RECORDS SUMMARY | 2024-02-16 16:34 | XMS_ITS | Encounter Summary ---
Author Organization [facility] Address [address] [place] [address] Care Team Providers Care Metal Sprayer Name Role Phone None, Provider Primary Care Provider Unavailabl e Reason for Visit * Reason Comments Cerumen Impaction Encounter Details Date Type Department Care Team (Late st Contact Info) Description 08/10/2015 13:00 EDT Office Visit [facility]- [address] [address] Carlie Rocha MD [address] [place] [address], [address] [place] [address] Bilateral impacted cerumen (Primary Dx) Social History Tobacco Use Types Packs/Day Years [...] as of this encounter Progress Notes * Carlie Rocha MD - 08/10/2015 1316 EDT Mr Carver is here today with plugged ears. He feels like he probably has cerumen impactions. This has been a lifelong problem for him. He previously lived in [place], would go in every year or two to have his ears cleaned of cerumen. Most recently it has been a couple of years since he last had them cleaned out. He feels like particularly the right ear is very plugged right now. He does not use Q-tips to clean his ears. He has been told not to do that in the past. He has tried using drops,but they seem to make things worse. He feels that his baseline hearing is fine, but it is decreaseda bit right now because of the cerumen. PAST MEDICAL HISTORY: He has no other medical problems. PAST SURGERY: Tonsillectomy. FAMILY HISTORY: Unremarkable. He does not smoke. He drinks 12 to 6 drinks a week. 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 Review of systems is performed and is notable only for hearing loss. He has no medication allergies. PHYSICAL EXAM: Generally, he is in no distress. He is well-groomed. His face reveals symmetric movement and is otherwise normal appearing. His voice is of normal quality. He communicates easily in the exam room. His nose externally is unremarkable. Internally, he has some septal deviation with a spur over to the right. Mucosa is healthy-appearing. His mouth and oropharynx is within normal limits without lesions. Dentition is unremarkable. His neck reveals no masses or adenopathy. Salivary glands are normal to palpation. His auricles are normal appearing. Both canals are totally obstructed with copious amounts of cerumen. Under the microscope this is removed with a #7 suction. Once this is done, the canals and tympanic membranes are healthy appearing. ASSESSMENT: Cerumen impaction, removed today. PLAN: Follow up in 1 year. documented in this encounter Plan of Treatment Not on file documented as of this encounter Visit Diagnoses Diagnosis Bilateral impacted cerumen- Primary Impacted cerumen documented in this encounter Care Teams Metal Sprayer Relationship Specialty Start Date End Date None, Provider PCP - General 03/30/12 documented as of this encounter
[2024-02-18 19:11] LABS: PSA, Ultrasensitive 2.1 ng/mL (<= 6.5)
[2024-02-21 11:53] LABS: Testosterone, Total <7.0 ng/dL (240-950)
== END 2024-02-16 16:32 | disposition home or self-care (01) ==
LOC: LBO 16:32
PROVIDERS: PCP Nurse Practitioner; Visit Provider Internal Medicine
DX: C61 Malignant neoplasm of prostate (principal); C77.5 Secondary and unspecified malignant neoplasm of intrapelvic lymph nodes
CPT/HCPCS: 36415; 80053; 84153; 84403; 85025